=== PATIENT | male | born 1960 | race Caucasian/White ===

== ENCOUNTER 2018-06-24 11:44 | Emergency (ER) | payer SELFPAY ==
[2018-06-24 11:52] VITALS: BP 127/72; PULSE 73; RESP 16; TEMP 36.6; O2SAT 100
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
[2018-06-24 12:26] LABS: Abs Immature Grans 0.12 k/cumm (0.0-0.09); Absolute Basophil Count 0.05 k/cumm (0.0-0.2); Absolute Eosinophil Count 0.59 k/cumm (0.0-0.7); Absolute Lymphocyte Count 2.36 k/cumm (1.2-3.4); Absolute Monocyte Count 0.54 k/cumm (0.11-0.7); Absolute Neutrophil Count 7.05 k/cumm (1.2-6.7); Basophils % 0.5; Eosinophils % 5.5; HCT 34.6 % (40.0-50.0); Immature Grans % 1.1; Mean Corp. HGB Concentration 34.7 g/dL (32.0-36.0); Mean Corpuscular Hemoglobin 32.1 pg (27.0-33.0); Mean Corpuscular Volume 92.5 fL (80-95); Mean Platelet Volume 9.4 fL (8.0-11.0); Neutrophils % 65.9; Platelet Count 548 x1000/uL (130-400); RBC 3.74 m/cumm (4.50-6.00); RBC Distribution Width 17.3 % (11.8-14.1); White Blood Cell Count 10.71 k/cumm (4.4-10.8)
--- NOTE | 2018-06-24 12:26 | DI.RAD_ITS ---
SYMPTOM/DIAGNOSIS: R/O MASS CHEST X-RAY: PA and lateral. No priors. Heart size and pulmonary vasculature are within normal limits. The lungs are free of infiltrates, effusions or pneumothoraces. Degenerative changes are seen in the spine. IMPRESSION: No acute pulmonary process.
[2018-06-24 12:37] LABS: Ammonia 32 umol/L (11-32)
[2018-06-24 12:39] LABS: INR 1.1 (1.0-3.5); PTT Activated 26.7 sec (21.0-31.4); Prothrombin Time 11.2 sec (9.3-11.0)
[2018-06-24 12:48] LABS: ALT 238 U/L (12-78); AST 156 U/L (15-37); Albumin 2.7 g/dL (3.4-5.0); Anion Gap 11.1 mmol/L (3-11); BUN 8 mg/dL (7-18); CO2 27.9 mmol/L (21.0-32.0); Calcium 9.3 mg/dL (8.5-10.1); Chloride 97 mmol/L (98-107); ETHANOL BLOOD 173.3 mg/dL (<3); Glucose 88 mg/dL (70-100); Potassium 3.4 mmol/L (3.5-5.1); Sodium 136 mmol/L (136-145); Total Protein 7.2 g/dL (6.4-8.2)
[2018-06-24 12:51] LABS: Bilirubin, Direct 21.35 mg/dL (0.00-0.20)
[2018-06-24 12:52] LABS: Alkaline Phosphatase 1625 U/L (46-116); Bilirubin, Total 23.5 mg/dL (0.2-1.0)
--- NOTE | 2018-06-24 12:54 | DI.CT_ITS ---
SYMPTOM/DIAGNOSIS: SEVERE JAUNDICE, BILI OF 24, R/O RUQ PATHOLOGY CT ABDOMEN AND PELVIS: CT scan of the abdomen and pelvis was performed following the uneventful administration of intravenous contrast material. No priors for comparison. The lung bases are free of infiltrates. There are several hypodense lesions seen within the liver. The largest is seen in the right lobe and measures 1.7 x 1.7 cm. There is a 3.3 x 3.4 x 3.7 cm heterogeneous mass involving the head of the pancreas suspicious for neoplasm. The adjacent portal and splenic veins are patent as is the celiac access and splenic artery. There is dilatation of the pancreatic duct up to 4 mm. There is dilatation of the intra and extra hepatic bile ducts to the level of the pancreatic mass and measures up to 1.4 cm. There is distension of the gallbladder. No definite stones are seen. There is mild pericholecystic fluid present. The spleen and adrenal glands are unremarkable. The kidneys show normal and symmetric enhancement. There is a cyst seen on the mid pole of the left kidney. No solid renal mass, calculus or obstruction is seen. The urinary bladder is intact. Reproductive organs are unremarkable as visualized. The bowel shows no evidence of obstruction or inflammation. No findings to suggest an acute appendicitis are present. There is atherosclerosis of the abdominal aorta without aneurysmal dilatation. Incidental note is made of a retro aortic left renal vein. No significant abdominal or pelvic adenopathy or pneumoperitoneum is seen. No significant ascites is present. Degenerative changes are seen in the spine. No aggressive osseous lesions are appreciated. IMPRESSION: 1. 3.4 x 3.3 x 3.7 cm. heterogeneous mass in the head of the pancreas suspicious for a neoplasm. 2. Multiple low attenuation lesions seen in the liver most suggestive of hepatic metastases. 3. Extra and intra hepatic biliary ductal dilatation to the level of the pancreatic mass.
[2018-06-24 13:04] LABS: Acetaminophen < 2 ug/mL (10-30); Salicylate < 2.8 mg/dL (2.8-20.0)
[2018-06-24 13:05] LABS: GGT 3362 U/L (15-85)
--- NOTE | 2018-06-24 13:26 | DI.VRAD_ITS ---
EXAM: XR Chest, 2 Views EXAM DATE/TIME: 06/24/2018 12:08 PM CLINICAL HISTORY: 57 years old, male; Pain; Chest pain; Type not specified; Patient HX: R/O mass TECHNIQUE: XR of the chest, 2 views. COMPARISON: No relevant prior studies available. FINDINGS: Lungs: Unremarkable. No consolidation. Pleural space: Unremarkable. No pleural effusion. No pneumothorax. Heart/Mediastinum: Unremarkable. No cardiomegaly. Bones/joints: Unremarkable. IMPRESSION: No acute findings. Dictated and Authenticated by: Nicole Rdz MD. Ordering:MICHAEL Bahena MD
[2018-06-24] MEDS: Omnipaque 350 MG/ML 100 ML BTL IJ (13:37)
--- NOTE | 2018-06-24 13:50 | DI.VRAD_ITS ---
EXAM: CT Abdomen and Pelvis With Contrast EXAM DATE/TIME: 06/24/2018 12:55 PM CLINICAL HISTORY: 57 years old, male; Signs and symptoms; Other: Severe jaundice, bili of 24, rule out ruq pathology TECHNIQUE: Axial computed tomography images of the abdomen and pelvis with intravenous contrast. All CT scans at this facility use at least one of these dose optimization techniques: automated exposure control; mA and/or kV adjustment per patient size (includes targeted exams where dose is matched to clinical indication); or iterative reconstruction. Coronal and sagittal reformatted images were created and reviewed. CONTRAST: 100 ml of Omnipaque 350 administered intravenously. COMPARISON: No relevant prior studies available. FINDINGS: Lower thorax: No acute findings. ABDOMEN: Liver: Multiple low-attenuation lesions in the liver, largest in the right hepatic lobe measures 1.6 x 1.6 cm. Metastases suspected given pancreatic mass. Gallbladder and bile ducts: Dilatation of the common bile duct measuring 1.4 cm, to the level of the pancreatic mass. Intrahepatic ductal dilatation. Dilatation of the gallbladder. Pancreas: Mildly heterogeneous mass within the pancreatic head measures 3.3 x 3.4 x 3.7 cm(AP/TV/SI). Findings highly suspect for a neoplasm, additional workup necessary. Pancreatic duct dilatation measures 4 mm. Spleen: Normal. No splenomegaly. Adrenals: Normal. No mass. Kidneys and ureters: Left cortical renal cyst. Stomach and bowel: Normal. No obstruction. No mucosal thickening. Appendix: No evidence of appendicitis. PELVIS: Bladder: Unremarkable as visualized. Reproductive: Unremarkable as visualized. ABDOMEN and PELVIS: Intraperitoneal space: Normal. No free air. No significant fluid collection. Bones/joints: No acute fracture. No dislocation. Soft tissues: Unremarkable. Vasculature: Normal. No abdominal aortic aneurysm. Lymph nodes: Normal. No enlarged lymph nodes. IMPRESSION: 1. Mildly heterogeneous mass within the pancreatic head measures 3.3 x 3.4 x 3.7 cm(AP/TV/SI). Findings highly suspect for a neoplasm, additional workup necessary. 2. Dilatation of the common bile duct measuring 1.4 cm, to the level of the pancreatic mass. Intrahepatic and pancreatic ductal dilatation. 3. Multiple low-attenuation lesions in the liver, largest in the right hepatic lobe measures 1.6 x 1.6 cm. Metastases likely. Findings were discussed with ESPERANZA Collazo on 06/24/2018 1:49 PM EST Dictated and Authenticated by: Nicole Rdz MD. Ordering:MICHAEL Bahena MD
[2018-06-24 14:30] VITALS: BP 113/65; PULSE 69; RESP 16; TEMP 36.6; O2SAT 98
[2018-06-24 14:43] VITALS: RESP 16
[2018-06-26 12:07] LABS: Hepatitis A Antibody IgM Negative (NEGAT); Hepatitis B Core Antibody Negative (NEGAT); Hepatitis B surface Ag Negative (NEGAT); Hepatitis C Ab w Rflx HCV PCR Negative (NEGAT)
== END 2018-06-24 14:45 | disposition home or self-care (01) ==
PROVIDERS: Emergency Provider Student in an Organized Health Care Education/Training Program
DX: K86.9 Disease of pancreas, unspecified (principal); K76.89 Other specified diseases of liver; R17 Unspecified jaundice
CPT/HCPCS: 36415; 80053; 86704; 86709; 86803; 87340; 99285; 71046; 74177; 80320; 80329; 82140; 82248; 82977; 85025; 85610; 85730; 99284; J3490

== ENCOUNTER 2018-07-27 08:01 | Outpatient (CLI) | payer SELFPAY ==
[2018-07-27 08:17] LABS: Abs Immature Grans 0.02 k/cumm (0.0-0.09); Absolute Basophil Count 0.03 k/cumm (0.0-0.2); Absolute Eosinophil Count 0.88 k/cumm (0.0-0.7); Absolute Lymphocyte Count 2.43 k/cumm (1.2-3.4); Absolute Monocyte Count 0.59 k/cumm (0.11-0.7); Basophils % 0.3; Eosinophils % 7.9; HCT 38.9 % (40.0-50.0); HGB 12.8 g/dL (13.5-17.5); Immature Grans % 0.2; Lymphocytes % 21.8; Mean Corp. HGB Concentration 32.9 g/dL (32.0-36.0); Mean Corpuscular Hemoglobin 32.1 pg (27.0-33.0); Mean Corpuscular Volume 97.5 fL (80-95); Mean Platelet Volume 8.4 fL (8.0-11.0); Monocytes % 5.3; Neutrophils % 64.5; Platelet Count 347 x1000/uL (130-400); RBC 3.99 m/cumm (4.50-6.00); RBC Distribution Width 14.2 % (11.8-14.1); White Blood Cell Count 11.16 k/cumm (4.4-10.8)
[2018-07-27 08:29] LABS: ALT 30 U/L (12-78); AST 17 U/L (15-37); Albumin 3.1 g/dL (3.4-5.0); Alkaline Phosphatase 300 U/L (46-116); Anion Gap 8.9 mmol/L (3-11); BUN 11 mg/dL (7-18); Bilirubin, Total 2.8 mg/dL (0.2-1.0); CO2 29.1 mmol/L (21.0-32.0); CREATININE 0.75 mg/dL (0.70-1.30); Calcium 9.3 mg/dL (8.5-10.1); Chloride 100 mmol/L (98-107); Glucose 120 mg/dL (70-100); Potassium 3.8 mmol/L (3.5-5.1); Sodium 138 mmol/L (136-145); Total Protein 7.7 g/dL (6.4-8.2)
[2018-07-28 11:40] LABS: CA 19-9 40 U/mL (<35)
== END 2018-07-27 08:21 ==
PROVIDERS: Visit Provider Nurse Practitioner Adult Health
DX: C25.0 Malignant neoplasm of head of pancreas (principal)
CPT/HCPCS: 36415; 80053; 85025; 86301

== ENCOUNTER 2018-08-04 07:48 | Outpatient (CLI) | payer SELFPAY ==
[2018-08-04 08:15] LABS: Abs Immature Grans 0.04 k/cumm (0.0-0.09); Absolute Basophil Count 0.04 k/cumm (0.0-0.2); Absolute Eosinophil Count 0.63 k/cumm (0.0-0.7); Absolute Lymphocyte Count 2.54 k/cumm (1.2-3.4); Absolute Monocyte Count 0.87 k/cumm (0.11-0.7); Absolute Neutrophil Count 6.51 k/cumm (1.2-6.7); Basophils % 0.4; Eosinophils % 5.9; HCT 39.1 % (40.0-50.0); HGB 13.2 g/dL (13.5-17.5); Immature Grans % 0.4; Lymphocytes % 23.9; Mean Corp. HGB Concentration 33.8 g/dL (32.0-36.0); Mean Corpuscular Hemoglobin 32.5 pg (27.0-33.0); Mean Corpuscular Volume 96.3 fL (80-95); Mean Platelet Volume 8.6 fL (8.0-11.0); Monocytes % 8.2; Neutrophils % 61.2; Platelet Count 209 x1000/uL (130-400); RBC 4.06 m/cumm (4.50-6.00); RBC Distribution Width 13.7 % (11.8-14.1); White Blood Cell Count 10.63 k/cumm (4.4-10.8)
[2018-08-04 08:29] LABS: ALT 21 U/L (12-78); AST 14 U/L (15-37); Albumin 3.1 g/dL (3.4-5.0); Alkaline Phosphatase 227 U/L (46-116); Anion Gap 7.1 mmol/L (3-11); BUN 17 mg/dL (7-18); Bilirubin, Total 1.9 mg/dL (0.2-1.0); CO2 29.9 mmol/L (21.0-32.0); CREATININE 0.79 mg/dL (0.70-1.30); Calcium 9.2 mg/dL (8.5-10.1); Chloride 101 mmol/L (98-107); Glucose 111 mg/dL (70-100); Potassium 4.2 mmol/L (3.5-5.1); Sodium 138 mmol/L (136-145); Total Protein 7.6 g/dL (6.4-8.2)
== END 2018-08-04 08:08 ==
PROVIDERS: Visit Provider Nurse Practitioner Adult Health
DX: C25.0 Malignant neoplasm of head of pancreas (principal)
CPT/HCPCS: 36415; 80053; 85025

== ENCOUNTER 2018-08-11 00:51 | Outpatient (CLI) | payer SELFPAY ==
[2018-08-11 08:03] LABS: Abs Immature Grans 0.02 k/cumm (0.0-0.09); Absolute Basophil Count 0.03 k/cumm (0.0-0.2); Absolute Eosinophil Count 0.45 k/cumm (0.0-0.7); Absolute Lymphocyte Count 2.37 k/cumm (1.2-3.4); Absolute Monocyte Count 0.54 k/cumm (0.11-0.7); Absolute Neutrophil Count 4.15 k/cumm (1.2-6.7); Basophils % 0.4; HCT 39.2 % (40.0-50.0); HGB 13.2 g/dL (13.5-17.5); Immature Grans % 0.3; Lymphocytes % 31.3; Mean Corp. HGB Concentration 33.7 g/dL (32.0-36.0); Mean Corpuscular Hemoglobin 32.5 pg (27.0-33.0); Mean Corpuscular Volume 96.6 fL (80-95); Mean Platelet Volume 7.8 fL (8.0-11.0); Monocytes % 7.1; Neutrophils % 54.9; Platelet Count 241 x1000/uL (130-400); RBC 4.06 m/cumm (4.50-6.00); RBC Distribution Width 13.9 % (11.8-14.1); White Blood Cell Count 7.56 k/cumm (4.4-10.8)
[2018-08-11 08:19] LABS: ALT 26 U/L (12-78); AST 16 U/L (15-37); Alkaline Phosphatase 159 U/L (46-116); BUN 13 mg/dL (7-18); Bilirubin, Total 1.3 mg/dL (0.2-1.0); CREATININE 0.85 mg/dL (0.70-1.30); Calcium 9.3 mg/dL (8.5-10.1); Chloride 101 mmol/L (98-107); Glucose 122 mg/dL (70-100); Sodium 139 mmol/L (136-145); Total Protein 7.5 g/dL (6.4-8.2)
== END 2018-08-11 01:11 ==
PROVIDERS: Visit Provider Nurse Practitioner Adult Health
DX: C25.0 Malignant neoplasm of head of pancreas (principal)
CPT/HCPCS: 36415; 80053; 85025

== ENCOUNTER 2018-08-25 02:27 | Outpatient (CLI) | payer SELFPAY ==
[2018-08-25 07:16] LABS: HCT 41.8 % (40.0-50.0); HGB 13.8 g/dL (13.5-17.5); Mean Corpuscular Hemoglobin 32.5 pg (27.0-33.0); Mean Corpuscular Volume 98.4 fL (80-95); Mean Platelet Volume 8.5 fL (8.0-11.0); Platelet Count 580 x1000/uL (130-400); RBC 4.25 m/cumm (4.50-6.00); RBC Distribution Width 15.7 % (11.8-14.1); White Blood Cell Count 12.18 k/cumm (4.4-10.8)
[2018-08-25 07:34] LABS: Absolute Eosinophil Count 0.37 k/cumm (0.0-0.7); Absolute Lymphocyte Count 3.41 k/cumm (1.2-3.4); Absolute Monocyte Count 0.73 k/cumm (0.11-0.7); Absolute Neutrophil Count 7.67 k/cumm (1.2-6.7); Anisocytosis 1+; Atypical Lymphocytes % 5; Diff Comment Manual Differential
[2018-08-25 07:39] LABS: ALT 23 U/L (12-78); AST 16 U/L (15-37); Albumin 3.3 g/dL (3.4-5.0); Alkaline Phosphatase 155 U/L (46-116); Anion Gap 8.7 mmol/L (3-11); BUN 17 mg/dL (7-18); Bilirubin, Total 0.7 mg/dL (0.2-1.0); CO2 29.3 mmol/L (21.0-32.0); CREATININE 1.02 mg/dL (0.70-1.30); Calcium 9.4 mg/dL (8.5-10.1); Chloride 101 mmol/L (98-107); Glucose 103 mg/dL (70-100); Potassium 4.4 mmol/L (3.5-5.1); Sodium 139 mmol/L (136-145); Total Protein 7.7 g/dL (6.4-8.2)
[2018-08-28 14:06] LABS: CA 19-9 37 U/mL (<35)
== END 2018-08-25 02:47 ==
PROVIDERS: Visit Provider Nurse Practitioner Adult Health
DX: C25.0 Malignant neoplasm of head of pancreas (principal)
CPT/HCPCS: 36415; 80053; 85025; 86301

== ENCOUNTER 2018-09-01 01:06 | Outpatient (CLI) | payer SELFPAY ==
[2018-09-01 07:26] LABS: Abs Immature Grans 0.03 k/cumm (0.0-0.09); Absolute Basophil Count 0.05 k/cumm (0.0-0.2); Absolute Lymphocyte Count 2.61 k/cumm (1.2-3.4); Absolute Neutrophil Count 3.66 k/cumm (1.2-6.7); Basophils % 0.7; Eosinophils % 4.2; HCT 38.6 % (40.0-50.0); HGB 13.2 g/dL (13.5-17.5); Immature Grans % 0.4; Lymphocytes % 36.5; Mean Corp. HGB Concentration 34.2 g/dL (32.0-36.0); Mean Corpuscular Hemoglobin 32.7 pg (27.0-33.0); Mean Corpuscular Volume 95.5 fL (80-95); Mean Platelet Volume 8.5 fL (8.0-11.0); Neutrophils % 51.2; Platelet Count 314 x1000/uL (130-400); RBC 4.04 m/cumm (4.50-6.00); RBC Distribution Width 14.9 % (11.8-14.1); White Blood Cell Count 7.15 k/cumm (4.4-10.8)
[2018-09-01 07:40] LABS: ALT 28 U/L (12-78); AST 20 U/L (15-37); Albumin 3.1 g/dL (3.4-5.0); Alkaline Phosphatase 115 U/L (46-116); BUN 8 mg/dL (7-18); Bilirubin, Total 0.6 mg/dL (0.2-1.0); CREATININE 0.72 mg/dL (0.70-1.30); Calcium 8.6 mg/dL (8.5-10.1); Chloride 103 mmol/L (98-107); Glucose 110 mg/dL (70-100); Potassium 3.6 mmol/L (3.5-5.1); Sodium 139 mmol/L (136-145); Total Protein 6.9 g/dL (6.4-8.2)
== END 2018-09-01 01:26 ==
PROVIDERS: Visit Provider Nurse Practitioner Adult Health
DX: C25.0 Malignant neoplasm of head of pancreas (principal)
CPT/HCPCS: 36415; 80053; 85025

== ENCOUNTER 2018-09-08 01:32 | Outpatient (CLI) | payer SELFPAY ==
[2018-09-08 07:33] LABS: Abs Immature Grans 0.02 k/cumm (0.0-0.09); Absolute Basophil Count 0.05 k/cumm (0.0-0.2); Absolute Lymphocyte Count 1.83 k/cumm (1.2-3.4); Absolute Monocyte Count 0.15 k/cumm (0.11-0.7); Absolute Neutrophil Count 2.05 k/cumm (1.2-6.7); Basophils % 1.2; Eosinophils % 2.4; HCT 38.1 % (40.0-50.0); Immature Grans % 0.5; Lymphocytes % 43.6; Mean Corp. HGB Concentration 34.1 g/dL (32.0-36.0); Mean Corpuscular Hemoglobin 32.4 pg (27.0-33.0); Monocytes % 3.6; Neutrophils % 48.7; RBC 4.01 m/cumm (4.50-6.00)
[2018-09-08 07:44] LABS: ALT 43 U/L (12-78); AST 28 U/L (15-37); Albumin 3.3 g/dL (3.4-5.0); Alkaline Phosphatase 129 U/L (46-116); Anion Gap 6.3 mmol/L (3-11); BUN 13 mg/dL (7-18); Bilirubin, Total 0.6 mg/dL (0.2-1.0); CO2 30.7 mmol/L (21.0-32.0); CREATININE 0.72 mg/dL (0.70-1.30); Chloride 101 mmol/L (98-107); Glucose 109 mg/dL (70-100); Potassium 3.6 mmol/L (3.5-5.1); Sodium 138 mmol/L (136-145)
[2018-09-08 07:53] LABS: Platelet Count 107 x1000/uL (130-400)
== END 2018-09-08 01:52 ==
PROVIDERS: Visit Provider Nurse Practitioner Adult Health
DX: C25.0 Malignant neoplasm of head of pancreas (principal)
CPT/HCPCS: 36415; 80053; 85025; 86301

== ENCOUNTER 2018-09-18 01:03 | Outpatient (CLI) | payer SELFPAY ==
[2018-09-18] MEDS: Omnipaque 350 MG/ML 100 ML BTL IV (10:38)
--- NOTE | 2018-09-18 11:10 | DI.CT_ITS ---
SYMPTOMS/DIAGNOSIS: STAGE IV PANCREATIC CA ON CHEMO, RESTAGING, C25.9, C78.7 CT SCAN OF THE CHEST, ABDOMEN AND PELVIS: CT scan of the chest, abdomen and pelvis was performed following the uneventful administration of intravenous and oral contrast material. Comparison is 06/24/18. CT SCAN OF THE ABDOMEN AND PELVIS: The liver is normal in size. There are again seen five hypodense masses within the liver; the largest is seen in the posterior segment of the right lobe and measures 2.2 x 1.9 cm, which is unchanged compared to the prior examination. No new hepatic lesions are identified. The portal, superior mesenteric and splenic veins are patent. The gallbladder is normal in size. No biliary ductal dilatation is seen. There has been interval placement of a biliary tube with resultant air in the gallbladder and intrahepatic and extrahepatic bile ducts. There is persistent dilatation of the pancreatic duct. The pancreatic mass is again seen. It measures approximately 3.4 cm x 3.5 cm, which is grossly unchanged compared to the prior examination. The spleen is unremarkable. There is no evidence of an adrenal mass. The kidneys show normal and symmetric enhancement. There is a left renal cyst. Again noted, there are a few tiny hypodensities seen in the kidneys. They are too small for further characterization, but likely reflect small cysts. The urinary bladder is intact. Reproductive organs are unremarkable as visualized. There is atherosclerosis of the abdominal aorta but no aneurysmal dilatation. Incidental note is made of a retroaortic left renal vein. No significant abdominal or pelvic ascites or adenopathy is present. No pneumoperitoneum is seen. The bowel shows no evidence of obstruction or inflammation. There is a normal appendix visualized. There are degenerative changes seen in the spine. No aggressive osseous lesions are identified. IMPRESSION: 1. Stable pancreatic head mass. 2. Stable hepatic lesions suspicious for metastases. 3. Status post biliary tube placement with resultant pneumobilia. CT SCAN OF THE CHEST: There are no priors for comparison. The thoracic aorta shows mild atherosclerosis but is normal in caliber. Heart size is mildly enlarged. No significant pericardial effusion is seen. Coronary artery calcifications are present. No pleural effusion or pneumothorax is identified. No significant thoracic adenopathy is present. Mild dependent atelectatic changes are seen in the lung bases. No pulmonary nodules are identified. The tracheobronchial tree is unremarkable. No focal consolidating infiltrates are present. There is an old compression deformity seen in the mid thoracic spine. This was present on the x-ray of the chest from 06/24/18. No aggressive osseous lesions are seen. There are degenerative changes seen in the spine. IMPRESSION: No evidence of thoracic metastatic disease.
== END 2018-09-18 01:23 ==
PROVIDERS: Visit Provider Internal Medicine Hematology & Oncology
DX: C25.9 Malignant neoplasm of pancreas, unspecified (principal); C78.7 Secondary malignant neoplasm of liver and intrahepatic bile duct; Z92.21 Personal history of antineoplastic chemotherapy; K83.8 Other specified diseases of biliary tract; Z96.89 Presence of other specified functional implants
CPT/HCPCS: 74177; 71260; J3490

== ENCOUNTER 2018-09-22 02:16 | Outpatient (CLI) | payer SELFPAY ==
[2018-09-22 07:38] LABS: Abs Immature Grans 0.05 k/cumm (0.0-0.09); Absolute Basophil Count 0.03 k/cumm (0.0-0.2); Absolute Eosinophil Count 0.58 k/cumm (0.0-0.7); Absolute Lymphocyte Count 2.04 k/cumm (1.2-3.4); Absolute Monocyte Count 0.85 k/cumm (0.11-0.7); Absolute Neutrophil Count 3.97 k/cumm (1.2-6.7); Basophils % 0.4; Eosinophils % 7.7; HCT 37.2 % (40.0-50.0); HGB 12.6 g/dL (13.5-17.5); Immature Grans % 0.7; Lymphocytes % 27.1; Mean Corp. HGB Concentration 33.9 g/dL (32.0-36.0); Mean Corpuscular Hemoglobin 32.6 pg (27.0-33.0); Mean Corpuscular Volume 96.4 fL (80-95); Mean Platelet Volume 9.1 fL (8.0-11.0); Monocytes % 11.3; Neutrophils % 52.8; Platelet Count 560 x1000/uL (130-400); RBC 3.86 m/cumm (4.50-6.00); RBC Distribution Width 16.7 % (11.8-14.1); White Blood Cell Count 7.52 k/cumm (4.4-10.8)
[2018-09-22 07:45] LABS: ALT 24 U/L (12-78); AST 17 U/L (15-37); Albumin 3.3 g/dL (3.4-5.0); Alkaline Phosphatase 105 U/L (46-116); Anion Gap 7.5 mmol/L (3-11); BUN 14 mg/dL (7-18); Bilirubin, Total 0.3 mg/dL (0.2-1.0); CO2 29.5 mmol/L (21.0-32.0); CREATININE 0.95 mg/dL (0.70-1.30); Calcium 8.8 mg/dL (8.5-10.1); Chloride 105 mmol/L (98-107); Glucose 100 mg/dL (70-100); Potassium 4.2 mmol/L (3.5-5.1); Sodium 142 mmol/L (136-145); Total Protein 6.9 g/dL (6.4-8.2)
== END 2018-09-22 02:36 ==
PROVIDERS: Visit Provider Internal Medicine Hematology & Oncology
DX: C25.0 Malignant neoplasm of head of pancreas (principal)
CPT/HCPCS: 36415; 80053; 85025

== ENCOUNTER 2018-09-29 01:35 | Outpatient (CLI) | payer SELFPAY ==
[2018-09-29 08:15] LABS: HCT 38.1 % (40.0-50.0); HGB 12.9 g/dL (13.5-17.5); Mean Corp. HGB Concentration 33.9 g/dL (32.0-36.0); Mean Corpuscular Hemoglobin 32.3 pg (27.0-33.0); Mean Corpuscular Volume 95.5 fL (80-95); Platelet Count 411 x1000/uL (130-400); RBC 3.99 m/cumm (4.50-6.00); RBC Distribution Width 16.9 % (11.8-14.1); White Blood Cell Count 6.32 k/cumm (4.4-10.8)
[2018-09-29 08:26] LABS: ALT 40 U/L (12-78); AST 26 U/L (15-37); Albumin 3.4 g/dL (3.4-5.0); Alkaline Phosphatase 99 U/L (46-116); Anion Gap 5.9 mmol/L (3-11); BUN 13 mg/dL (7-18); Bilirubin, Total 0.4 mg/dL (0.2-1.0); CO2 28.1 mmol/L (21.0-32.0); CREATININE 0.84 mg/dL (0.70-1.30); Calcium 9.2 mg/dL (8.5-10.1); Chloride 103 mmol/L (98-107); Glucose 107 mg/dL (70-100); Potassium 4.5 mmol/L (3.5-5.1); Sodium 137 mmol/L (136-145); Total Protein 6.8 g/dL (6.4-8.2)
[2018-09-29 08:36] LABS: Absolute Basophil Count 0.06 k/cumm (0.0-0.2); Absolute Eosinophil Count 0.06 k/cumm (0.0-0.7); Absolute Lymphocyte Count 2.72 k/cumm (1.2-3.4); Absolute Monocyte Count 0.51 k/cumm (0.11-0.7); Absolute Neutrophil Count 2.97 k/cumm (1.2-6.7); Atypical Lymphocytes % 3; Diff Comment Manual Differential; RBC Morphology Normal
[2018-10-02 10:53] LABS: CA 19-9 34 U/mL (<35)
== END 2018-09-29 01:55 ==
PROVIDERS: Visit Provider Nurse Practitioner Adult Health
DX: C25.0 Malignant neoplasm of head of pancreas (principal)
CPT/HCPCS: 36415; 80053; 85025; 86301

== ENCOUNTER 2018-10-06 01:51 | Outpatient (CLI) | payer SELFPAY ==
[2018-10-06 07:37] LABS: Abs Immature Grans 0.04 k/cumm (0.0-0.09); Absolute Basophil Count 0.04 k/cumm (0.0-0.2); Absolute Eosinophil Count 0.06 k/cumm (0.0-0.7); Absolute Lymphocyte Count 1.55 k/cumm (1.2-3.4); Basophils % 1.2; Eosinophils % 1.8; HCT 33.3 % (40.0-50.0); HGB 11.1 g/dL (13.5-17.5); Immature Grans % 1.2; Lymphocytes % 45.5; Mean Corp. HGB Concentration 33.3 g/dL (32.0-36.0); Mean Corpuscular Hemoglobin 31.4 pg (27.0-33.0); Mean Corpuscular Volume 94.3 fL (80-95); Monocytes % 5.9; Neutrophils % 44.4; Platelet Count 123 x1000/uL (130-400); RBC 3.53 m/cumm (4.50-6.00); RBC Distribution Width 16.4 % (11.8-14.1); White Blood Cell Count 3.41 k/cumm (4.4-10.8)
[2018-10-06 07:38] LABS: Absolute Neutrophil Count 1.51 k/cumm (1.2-6.7)
[2018-10-06 07:51] LABS: ALT 31 U/L (12-78); AST 16 U/L (15-37); Albumin 3.2 g/dL (3.4-5.0); Alkaline Phosphatase 84 U/L (46-116); Anion Gap 6.8 mmol/L (3-11); BUN 21 mg/dL (7-18); Bilirubin, Total 0.4 mg/dL (0.2-1.0); CO2 28.2 mmol/L (21.0-32.0); CREATININE 0.85 mg/dL (0.70-1.30); Calcium 9.1 mg/dL (8.5-10.1); Chloride 102 mmol/L (98-107); Glucose 110 mg/dL (70-100); Potassium 3.9 mmol/L (3.5-5.1); Sodium 137 mmol/L (136-145); Total Protein 6.5 g/dL (6.4-8.2)
== END 2018-10-06 02:11 ==
PROVIDERS: Visit Provider Nurse Practitioner Adult Health
DX: C25.0 Malignant neoplasm of head of pancreas (principal)
CPT/HCPCS: 36415; 80053; 85025

== ENCOUNTER 2018-10-20 01:26 | Outpatient (CLI) | payer SELFPAY ==
[2018-10-20 11:13] LABS: Abs Immature Grans 0.07 k/cumm (0.0-0.09); Absolute Basophil Count 0.02 k/cumm (0.0-0.2); Absolute Eosinophil Count 0.28 k/cumm (0.0-0.7); Absolute Lymphocyte Count 2.22 k/cumm (1.2-3.4); Absolute Monocyte Count 0.88 k/cumm (0.11-0.7); Absolute Neutrophil Count 4.84 k/cumm (1.2-6.7); Basophils % 0.2; Eosinophils % 3.4; HGB 11.6 g/dL (13.5-17.5); Immature Grans % 0.8; Lymphocytes % 26.7; Mean Corp. HGB Concentration 33.1 g/dL (32.0-36.0); Mean Corpuscular Hemoglobin 32.2 pg (27.0-33.0); Mean Corpuscular Volume 97.2 fL (80-95); Mean Platelet Volume 9.3 fL (8.0-11.0); Monocytes % 10.6; Neutrophils % 58.3; Platelet Count 573 x1000/uL (130-400); RBC Distribution Width 19.1 % (11.8-14.1); White Blood Cell Count 8.31 k/cumm (4.4-10.8)
[2018-10-20 11:14] LABS: ALT 26 U/L (12-78); AST 17 U/L (15-37); Albumin 3.5 g/dL (3.4-5.0); Alkaline Phosphatase 93 U/L (46-116); Anion Gap 6.9 mmol/L (3-11); BUN 16 mg/dL (7-18); Bilirubin, Total 0.5 mg/dL (0.2-1.0); CO2 29.1 mmol/L (21.0-32.0); CREATININE 0.76 mg/dL (0.70-1.30); Calcium 9.4 mg/dL (8.5-10.1); Chloride 102 mmol/L (98-107); Glucose 95 mg/dL (70-100); Sodium 138 mmol/L (136-145); Total Protein 6.9 g/dL (6.4-8.2)
[2018-10-20 11:33] LABS: Anisocytosis 2+; Diff Comment Diff Reviewed; Hypochromasia 1+; Macrocytosis 1+; Microcytosis 1+; Polychromasia Present
[2018-10-20 11:34] LABS: Poikilocytes 1+
[2018-10-23 12:27] LABS: CA 19-9 22 U/mL (<35)
== END 2018-10-20 01:46 ==
PROVIDERS: Visit Provider Nurse Practitioner Adult Health
DX: C25.0 Malignant neoplasm of head of pancreas (principal)
CPT/HCPCS: 36415; 80053; 85025; 86301

== ENCOUNTER 2018-11-03 07:29 | Outpatient (CLI) | payer SELFPAY ==
[2018-11-03 07:54] LABS: Absolute Basophil Count 0.04 k/cumm (0.0-0.2); Absolute Eosinophil Count 0.61 k/cumm (0.0-0.7); Absolute Lymphocyte Count 2.47 k/cumm (1.2-3.4); Absolute Monocyte Count 1.17 k/cumm (0.11-0.7); Absolute Neutrophil Count 5.79 k/cumm (1.2-6.7); Basophils % 0.4; HCT 38.7 % (40.0-50.0); Lymphocytes % 24.3; Mean Corp. HGB Concentration 33.6 g/dL (32.0-36.0); Mean Corpuscular Hemoglobin 33.1 pg (27.0-33.0); Mean Corpuscular Volume 98.5 fL (80-95); Mean Platelet Volume 8.8 fL (8.0-11.0); Monocytes % 11.5; Neutrophils % 56.8; Platelet Count 283 x1000/uL (130-400); RBC 3.93 m/cumm (4.50-6.00); RBC Distribution Width 19.3 % (11.8-14.1); White Blood Cell Count 10.18 k/cumm (4.4-10.8)
[2018-11-03 08:18] LABS: ALT 23 U/L (12-78); AST 12 U/L (15-37); Albumin 3.5 g/dL (3.4-5.0); Alkaline Phosphatase 108 U/L (46-116); Anion Gap 8.1 mmol/L (3-11); BUN 15 mg/dL (7-18); Bilirubin, Total 0.4 mg/dL (0.2-1.0); CO2 27.9 mmol/L (21.0-32.0); CREATININE 0.86 mg/dL (0.70-1.30); Calcium 8.9 mg/dL (8.5-10.1); Chloride 102 mmol/L (98-107); Glucose 112 mg/dL (70-100); Potassium 4.3 mmol/L (3.5-5.1); Sodium 138 mmol/L (136-145); Total Protein 7.1 g/dL (6.4-8.2)
[2018-11-06 10:33] LABS: CA 19-9 20 U/mL (<35)
== END 2018-11-03 07:49 ==
PROVIDERS: Visit Provider Nurse Practitioner Adult Health
DX: C25.0 Malignant neoplasm of head of pancreas (principal)
CPT/HCPCS: 36415; 80053; 85025; 86301

== ENCOUNTER 2018-11-10 02:04 | Outpatient (CLI) | payer SELFPAY ==
[2018-11-10 08:10] LABS: HCT 33.7 % (40.0-50.0); Mean Corp. HGB Concentration 32.6 g/dL (32.0-36.0); Mean Corpuscular Hemoglobin 32.6 pg (27.0-33.0); Mean Platelet Volume 8.5 fL (8.0-11.0); Platelet Count 206 x1000/uL (130-400); RBC 3.37 m/cumm (4.50-6.00); RBC Distribution Width 17.2 % (11.8-14.1)
[2018-11-10 08:22] LABS: ALT 38 U/L (12-78); AST 26 U/L (15-37); Albumin 3.3 g/dL (3.4-5.0); Alkaline Phosphatase 98 U/L (46-116); Anion Gap 6.6 mmol/L (3-11); BUN 14 mg/dL (7-18); Bilirubin, Total 0.4 mg/dL (0.2-1.0); CO2 28.4 mmol/L (21.0-32.0); CREATININE 0.75 mg/dL (0.70-1.30); Chloride 101 mmol/L (98-107); Glucose 105 mg/dL (70-100); Sodium 136 mmol/L (136-145); Total Protein 6.7 g/dL (6.4-8.2)
[2018-11-10 08:40] LABS: Absolute Eosinophil Count 0.15 k/cumm (0.0-0.7); Absolute Lymphocyte Count 1.84 k/cumm (1.2-3.4); Absolute Monocyte Count 0.56 k/cumm (0.11-0.7); Diff Comment Manual Differential; RBC Morphology Normal
[2018-11-13 10:40] LABS: CA 19-9 23 U/mL (<35)
== END 2018-11-10 02:24 ==
PROVIDERS: Visit Provider Nurse Practitioner Adult Health
DX: C25.0 Malignant neoplasm of head of pancreas (principal)
CPT/HCPCS: 36415; 80053; 85025; 86301

== ENCOUNTER 2018-11-24 02:17 | Outpatient (CLI) | payer SELFPAY ==
[2018-11-24 11:43] LABS: Abs Immature Grans 0.06 k/cumm (0.0-0.09); Absolute Basophil Count 0.02 k/cumm (0.0-0.2); Absolute Eosinophil Count 0.14 k/cumm (0.0-0.7); Absolute Lymphocyte Count 1.84 k/cumm (1.2-3.4); Absolute Monocyte Count 0.86 k/cumm (0.11-0.7); Absolute Neutrophil Count 4.88 k/cumm (1.2-6.7); Basophils % 0.3; Eosinophils % 1.8; HCT 35.3 % (40.0-50.0); HGB 11.6 g/dL (13.5-17.5); Immature Grans % 0.8; Lymphocytes % 23.6; Mean Corp. HGB Concentration 32.9 g/dL (32.0-36.0); Mean Corpuscular Hemoglobin 33.7 pg (27.0-33.0); Mean Corpuscular Volume 102.6 fL (80-95); Mean Platelet Volume 8.5 fL (8.0-11.0); Neutrophils % 62.5; Platelet Count 445 x1000/uL (130-400); RBC 3.44 m/cumm (4.50-6.00)
[2018-11-24 11:56] LABS: ALT 28 U/L (12-78); AST 19 U/L (15-37); Albumin 3.5 g/dL (3.4-5.0); Alkaline Phosphatase 92 U/L (46-116); Anion Gap 8.4 mmol/L (3-11); BUN 16 mg/dL (7-18); Bilirubin, Total 0.4 mg/dL (0.2-1.0); CO2 27.6 mmol/L (21.0-32.0); CREATININE 0.82 mg/dL (0.70-1.30); Calcium 9.1 mg/dL (8.5-10.1); Chloride 102 mmol/L (98-107); Glucose 78 mg/dL (70-100); Potassium 3.6 mmol/L (3.5-5.1); Sodium 138 mmol/L (136-145); Total Protein 7.1 g/dL (6.4-8.2)
--- NOTE | 2018-11-24 13:15 | DI.US_ITS ---
SYMPTOMS/DIAGNOSIS: PANCREATIC CA, LEFT LEG SWELLING, PAIN, ? DVT LEFT LOWER EXTREMITY ULTRASOUND: Edema is seen in the lower leg. Femoral and popliteal veins and visualized calf veins are freely compressible. No thrombus is visible. The Doppler venous waveform augments normally. No superficial venous thrombosis is identified. A reactive lymph node is noted in the left groin region. IMPRESSION: Lower leg edema. No evidence of DVT.
[2018-11-27 11:42] LABS: CA 19-9 17 U/mL (<35)
== END 2018-11-24 02:37 ==
PROVIDERS: Visit Provider Nurse Practitioner Adult Health
DX: C25.0 Malignant neoplasm of head of pancreas (principal); R22.42 Localized swelling, mass and lump, left lower limb; R60.0 Localized edema
CPT/HCPCS: 36415; 80053; 85025; 86301; 93971

== ENCOUNTER 2018-12-05 12:34 | Outpatient (CLI) | payer SELFPAY ==
[2018-12-05 13:00] LABS: Abs Immature Grans 0.05 k/cumm (0.0-0.09); Absolute Basophil Count 0.01 k/cumm (0.0-0.2); Absolute Monocyte Count 0.98 k/cumm (0.11-0.7); Absolute Neutrophil Count 3.28 k/cumm (1.2-6.7); Basophils % 0.2; Eosinophils % 1.6; HCT 36.9 % (40.0-50.0); HGB 12.6 g/dL (13.5-17.5); Immature Grans % 0.8; Lymphocytes % 31.2; Mean Corp. HGB Concentration 34.1 g/dL (32.0-36.0); Mean Corpuscular Hemoglobin 34.9 pg (27.0-33.0); Mean Corpuscular Volume 102.2 fL (80-95); Mean Platelet Volume 8.6 fL (8.0-11.0); Monocytes % 15.3; Neutrophils % 50.9; Platelet Count 265 x1000/uL (130-400); RBC 3.61 m/cumm (4.50-6.00); RBC Distribution Width 16.7 % (11.8-14.1); White Blood Cell Count 6.42 k/cumm (4.4-10.8)
[2018-12-05 13:18] LABS: ALT 37 U/L (12-78); AST 37 U/L (15-37); Albumin 3.5 g/dL (3.4-5.0); Alkaline Phosphatase 91 U/L (46-116); Anion Gap 9.8 mmol/L (3-11); BUN 10 mg/dL (7-18); Bilirubin, Total 0.2 mg/dL (0.2-1.0); CO2 26.2 mmol/L (21.0-32.0); CREATININE 0.71 mg/dL (0.70-1.30); Calcium 9.6 mg/dL (8.5-10.1); Chloride 103 mmol/L (98-107); Glucose 91 mg/dL (70-100); Potassium 4.1 mmol/L (3.5-5.1); Sodium 139 mmol/L (136-145); Total Protein 7.2 g/dL (6.4-8.2)
[2018-12-06 10:31] LABS: CA 19-9 20 U/mL (<35)
== END 2018-12-05 12:54 ==
PROVIDERS: Visit Provider Nurse Practitioner Adult Health
DX: C25.0 Malignant neoplasm of head of pancreas (principal)
CPT/HCPCS: 36415; 80053; 85025; 86301

== ENCOUNTER 2018-12-11 11:45 | Outpatient (CLI) | payer SELFPAY ==
[2018-12-11 12:33] LABS: Abs Immature Grans 0.04 k/cumm (0.0-0.09); Absolute Basophil Count 0.04 k/cumm (0.0-0.2); Absolute Eosinophil Count 0.06 k/cumm (0.0-0.7); Absolute Monocyte Count 0.28 k/cumm (0.11-0.7); Absolute Neutrophil Count 3.35 k/cumm (1.2-6.7); Basophils % 0.8; Eosinophils % 1.1; HCT 35.7 % (40.0-50.0); HGB 11.8 g/dL (13.5-17.5); Immature Grans % 0.8; Lymphocytes % 28.5; Mean Corp. HGB Concentration 33.1 g/dL (32.0-36.0); Mean Corpuscular Hemoglobin 33.9 pg (27.0-33.0); Mean Corpuscular Volume 102.6 fL (80-95); Mean Platelet Volume 8.9 fL (8.0-11.0); Monocytes % 5.3; Neutrophils % 63.5; Platelet Count 205 x1000/uL (130-400); RBC 3.48 m/cumm (4.50-6.00); RBC Distribution Width 15.5 % (11.8-14.1); White Blood Cell Count 5.27 k/cumm (4.4-10.8)
[2018-12-11 12:47] LABS: ALT 56 U/L (12-78); AST 62 U/L (15-37); Albumin 3.3 g/dL (3.4-5.0); Alkaline Phosphatase 90 U/L (46-116); Anion Gap 5.7 mmol/L (3-11); BUN 8 mg/dL (7-18); Bilirubin, Total 0.2 mg/dL (0.2-1.0); CO2 28.3 mmol/L (21.0-32.0); Calcium 9.2 mg/dL (8.5-10.1); Chloride 102 mmol/L (98-107); Glucose 97 mg/dL (70-100); Potassium 4.2 mmol/L (3.5-5.1); Sodium 136 mmol/L (136-145)
[2018-12-13 09:53] LABS: CA 19-9 17 U/mL (<35)
== END 2018-12-11 12:05 ==
PROVIDERS: Visit Provider Nurse Practitioner Adult Health
DX: C25.0 Malignant neoplasm of head of pancreas (principal)
CPT/HCPCS: 36415; 80053; 85025; 86301

== ENCOUNTER 2018-12-18 01:15 | Outpatient (CLI) | payer SELFPAY ==
[2018-12-18] MEDS: Omnipaque 350 MG/ML 50 ML BTL PO (08:28)
[2018-12-18] MEDS: Breeza Beverage 473 ML BTL PO ×2 (08:29→08:30)
--- NOTE | 2018-12-18 09:47 | DI.CT_ITS ---
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 METS PANCREATIC CA ON TREATMENT CT SCAN CHEST, ABDOMEN AND PELVIS: CT scan of the chest, abdomen and pelvis was performed following the uneventful administration of intravenous and oral contrast material. Comparison 09/18/18 CT ABDOMEN AND PELVIS: There has been decrease in size and number of the hepatic lesions compared to the prior examination. No new hepatic lesions are seen. The portal, superior mesenteric and splenic veins are patent. The gallbladder is negative. No stones are present. No biliary ductal dilatation is seen. There is again seen a biliary stent in place with pneumobilia present. There does appear to be some decrease in size of the pancreatic head compared to the prior examination. The pancreatic head area measures approximately 3 x 3.2 cm. The remainder of the pancreas is unremarkable. The spleen and adrenal glands are unremarkable. No suspicious renal mass is seen. Note is again made of a cyst in the left kidney. The urinary bladder is intact. There is diffuse thickening of the wall of the urinary bladder. Prostate gland, prostatic calcifications are seen. The bowel shows no evidence of obstruction or inflammation. There is a normal appendix present. The abdominal aorta is of normal caliber. No significant abdominal or pelvic adenopathy, ascites or pneumoperitoneum is present. Degenerative changes are seen in the spine. No osseous metastatic disease is present. IMPRESSION: 1. Interval decrease in size and number of the hepatic metastases since 09/18/18. 2. Apparent decrease in size of the pancreatic head mass 3. Diffuse thickening of the wall of the urinary bladder. This may represent an inflammatory infectious process. Chronic bladder outlet obstruction cannot be excluded. CT CHEST: The thoracic aorta is intact with mild atherosclerosis. Heart size is at the upper limits of normal. No significant pericardial effusion is seen. Coronary artery calcifications are present. No significant thoracic adenopathy is present. No pleural effusion or pneumothorax is identified. Dependent atelectatic changes are seen in the lungs. There is a small infiltrate seen in the left lingula. This may represent atelectasis or pneumonia. The tracheobronchial tree is unremarkable. No pulmonary nodules are present. No suspicious lytic or sclerotic lesions are seen in the bones. Degenerative changes are seen in the spine. IMPRESSION: No evidence of thoracic metastatic disease.
[2018-12-18] MEDS: Omnipaque 350 MG/ML 100 ML BTL IJ (09:51)
== END 2018-12-18 01:35 ==
PROVIDERS: Visit Provider Internal Medicine Hematology & Oncology
DX: C25.0 Malignant neoplasm of head of pancreas (principal); C78.7 Secondary malignant neoplasm of liver and intrahepatic bile duct; R93.89 Abnormal findings on diagnostic imaging of other specified body structures
CPT/HCPCS: 74177; 71260; J3490; Q9967

== ENCOUNTER 2018-12-19 12:02 | Outpatient (CLI) | payer SELFPAY ==
--- NOTE | 2018-12-19 12:54 | DI.US_ITS ---
SYMPTOMS/DIAGNOSIS: SEVERE BLE SWELLING, ? DVT, H/O MALIGNANT NEOPLASM OF HEAD OF PANCREAS, C25.0 RIGHT AND LEFT LEG ULTRASOUND: The study was carried out according to the usual protocol. The superficial, femoral, popliteal and proximal trifurcation in the superior portions of the legs are well seen. Good compressibility is noted throughout. Flow is demonstrated and flow augmentation was easily elicited with calf compression. There is also no evidence superficial thrombophlebitis or a reinoso's cyst in either the right or left leg. SUMMARY: There is no evidence of DVT.
== END 2018-12-19 12:22 ==
PROVIDERS: Visit Provider Nurse Practitioner Adult Health
DX: M79.89 Other specified soft tissue disorders (principal); C25.0 Malignant neoplasm of head of pancreas
CPT/HCPCS: 93970

== ENCOUNTER 2018-12-22 02:36 | Outpatient (CLI) | payer SELFPAY ==
[2018-12-22 12:08] LABS: Abs Immature Grans 0.21 k/cumm (0.0-0.09); HCT 35.2 % (40.0-50.0); Mean Corp. HGB Concentration 34.1 g/dL (32.0-36.0); Mean Corpuscular Hemoglobin 34.7 pg (27.0-33.0); Mean Corpuscular Volume 101.7 fL (80-95); Mean Platelet Volume 8.9 fL (8.0-11.0); Platelet Count 336 x1000/uL (130-400); RBC 3.46 m/cumm (4.50-6.00); RBC Distribution Width 15.6 % (11.8-14.1); White Blood Cell Count 6.95 k/cumm (4.4-10.8)
[2018-12-22 12:21] LABS: ALT 47 U/L (12-78); AST 51 U/L (15-37); Alkaline Phosphatase 103 U/L (46-116); Anion Gap 10.6 mmol/L (3-11); BUN 6 mg/dL (7-18); Bilirubin, Total 0.2 mg/dL (0.2-1.0); CO2 26.4 mmol/L (21.0-32.0); CREATININE 0.78 mg/dL (0.70-1.30); Chloride 102 mmol/L (98-107); Glucose 90 mg/dL (70-100); Sodium 139 mmol/L (136-145); Total Protein 7.2 g/dL (6.4-8.2)
[2018-12-22 12:34] LABS: Absolute Lymphocyte Count 2.22 k/cumm (1.2-3.4); Absolute Monocyte Count 0.63 k/cumm (0.11-0.7); Absolute Neutrophil Count 3.61 k/cumm (1.2-6.7)
[2018-12-22 12:35] LABS: Absolute Eosinophil Count 0.28 k/cumm (0.0-0.7); Diff Comment Manual Differential; Macrocytosis 1+
[2018-12-25 12:12] LABS: CA 19-9 17 U/mL (<35)
== END 2018-12-22 02:56 ==
PROVIDERS: Nurse Practitioner Adult Health; Visit Provider Internal Medicine Hematology & Oncology
DX: C25.0 Malignant neoplasm of head of pancreas (principal)
CPT/HCPCS: 36415; 80053; 85025; 86301

== ENCOUNTER 2018-12-29 02:02 | Outpatient (CLI) | payer SELFPAY ==
[2018-12-29 11:53] LABS: Abs Immature Grans 0.11 k/cumm (0.0-0.09); Absolute Basophil Count 0.04 k/cumm (0.0-0.2); Absolute Monocyte Count 1.26 k/cumm (0.11-0.7); Absolute Neutrophil Count 5.28 k/cumm (1.2-6.7); Basophils % 0.4; Eosinophils % 1.1; HCT 38.4 % (40.0-50.0); HGB 12.9 g/dL (13.5-17.5); Immature Grans % 1.2; Lymphocytes % 25.3; Mean Corp. HGB Concentration 33.6 g/dL (32.0-36.0); Mean Corpuscular Volume 101.3 fL (80-95); Mean Platelet Volume 8.4 fL (8.0-11.0); Monocytes % 13.9; Neutrophils % 58.1; RBC 3.79 m/cumm (4.50-6.00); RBC Distribution Width 15.8 % (11.8-14.1); White Blood Cell Count 9.09 k/cumm (4.4-10.8)
[2018-12-29 12:01] LABS: ALT 40 U/L (12-78); AST 32 U/L (15-37); Albumin 3.6 g/dL (3.4-5.0); Alkaline Phosphatase 103 U/L (46-116); BUN 21 mg/dL (7-18); Bilirubin, Total 0.3 mg/dL (0.2-1.0); CREATININE 0.95 mg/dL (0.70-1.30); Calcium 9.5 mg/dL (8.5-10.1); Chloride 100 mmol/L (98-107); Glucose 97 mg/dL (70-100); Potassium 3.8 mmol/L (3.5-5.1); Sodium 140 mmol/L (136-145); Total Protein 7.7 g/dL (6.4-8.2)
[2018-12-29 12:07] LABS: Diff Comment PLT Morph Reviewed; Macrocytosis 1+; Platelet Count 697 x1000/uL (130-400)
[2019-01-01 10:54] LABS: CA 19-9 16 U/mL (<35)
== END 2018-12-29 02:22 ==
PROVIDERS: Visit Provider Nurse Practitioner Adult Health
DX: C25.0 Malignant neoplasm of head of pancreas (principal)
CPT/HCPCS: 36415; 80053; 85025; 86301

== ENCOUNTER 2019-01-05 02:01 | Outpatient (CLI) | payer SELFPAY ==
[2019-01-05 12:29] LABS: HGB 12.3 g/dL (13.5-17.5); Mean Corp. HGB Concentration 34.2 g/dL (32.0-36.0); Mean Corpuscular Hemoglobin 34.1 pg (27.0-33.0); Mean Corpuscular Volume 99.7 fL (80-95); Mean Platelet Volume 8.9 fL (8.0-11.0); RBC 3.61 m/cumm (4.50-6.00); RBC Distribution Width 14.8 % (11.8-14.1); White Blood Cell Count 6.08 k/cumm (4.4-10.8)
[2019-01-05 12:38] LABS: ALT 32 U/L (12-78); AST 18 U/L (15-37); Albumin 3.4 g/dL (3.4-5.0); Alkaline Phosphatase 98 U/L (46-116); Anion Gap 9.4 mmol/L (3-11); BUN 17 mg/dL (7-18); Bilirubin, Total 0.3 mg/dL (0.2-1.0); CO2 26.6 mmol/L (21.0-32.0); Calcium 9.4 mg/dL (8.5-10.1); Chloride 102 mmol/L (98-107); Glucose 87 mg/dL (70-100); Potassium 3.8 mmol/L (3.5-5.1); Sodium 138 mmol/L (136-145); Total Protein 7.4 g/dL (6.4-8.2)
[2019-01-05 13:23] LABS: Platelet Count 228 x1000/uL (130-400)
[2019-01-05 13:24] LABS: Absolute Basophil Count 0.06 k/cumm (0.0-0.2); Absolute Lymphocyte Count 2.01 k/cumm (1.2-3.4); Absolute Monocyte Count 0.49 k/cumm (0.11-0.7); Absolute Neutrophil Count 3.34 k/cumm (1.2-6.7); Atypical Lymphocytes % 4; Diff Comment Manual Differential; Promyelocytes % 1 %
[2019-01-05 13:25] LABS: Polychromasia Present
[2019-01-08 11:24] LABS: CA 19-9 15 U/mL (<35)
== END 2019-01-05 02:21 ==
PROVIDERS: Visit Provider Internal Medicine Hematology & Oncology
DX: C25.0 Malignant neoplasm of head of pancreas (principal)
CPT/HCPCS: 36415; 80053; 85025; 86301

== ENCOUNTER 2019-01-17 01:27 | Outpatient (CLI) | payer SELFPAY ==
[2019-01-17 08:14] LABS: Abs Immature Grans 0.05 k/cumm (0.0-0.09); Absolute Basophil Count 0.02 k/cumm (0.0-0.2); Absolute Eosinophil Count 0.17 k/cumm (0.0-0.7); Absolute Lymphocyte Count 1.56 k/cumm (1.2-3.4); Absolute Monocyte Count 0.98 k/cumm (0.11-0.7); Absolute Neutrophil Count 4.08 k/cumm (1.2-6.7); Basophils % 0.3; Eosinophils % 2.5; HCT 40.2 % (40.0-50.0); HGB 13.6 g/dL (13.5-17.5); Immature Grans % 0.7; Lymphocytes % 22.7; Mean Corp. HGB Concentration 33.8 g/dL (32.0-36.0); Mean Corpuscular Hemoglobin 33.7 pg (27.0-33.0); Mean Corpuscular Volume 99.5 fL (80-95); Monocytes % 14.3; Neutrophils % 59.5; Platelet Count 320 x1000/uL (130-400); RBC 4.04 m/cumm (4.50-6.00); RBC Distribution Width 16.5 % (11.8-14.1); White Blood Cell Count 6.86 k/cumm (4.4-10.8)
[2019-01-17 08:58] LABS: ALT 50 U/L (12-78); AST 40 U/L (15-37); Albumin 3.6 g/dL (3.4-5.0); Alkaline Phosphatase 133 U/L (46-116); Anion Gap 7.1 mmol/L (3-11); BUN 12 mg/dL (7-18); Bilirubin, Total 0.3 mg/dL (0.2-1.0); CO2 31.9 mmol/L (21.0-32.0); CREATININE 0.68 mg/dL (0.70-1.30); Calcium 9.4 mg/dL (8.5-10.1); Chloride 100 mmol/L (98-107); Glucose 101 mg/dL (70-100); Potassium 4.5 mmol/L (3.5-5.1); Sodium 139 mmol/L (136-145); Total Protein 7.1 g/dL (6.4-8.2)
[2019-01-19 10:49] LABS: CA 19-9 11 U/mL (<35)
== END 2019-01-17 01:47 ==
PROVIDERS: Visit Provider Nurse Practitioner Adult Health
DX: C25.0 Malignant neoplasm of head of pancreas (principal)
CPT/HCPCS: 36415; 80053; 85025; 86301

== ENCOUNTER 2019-01-23 00:59 | Outpatient (CLI) | payer SELFPAY ==
--- NOTE | 2019-01-23 07:45 | DI.CT_ITS ---
SYMPTOM/DIAGNOSIS: PANCREATIC CA, C25.0, ON TREATMENT, RESTAGING EXAM CHEST/ABDOMEN AND PELVIC CT; CT scan of the chest, abdomen and pelvis was performed following oral and intravenous contrast material. Comparison is made with 12/18/18. ABDOMEN AND PELVIS: The liver is normal in size. There is stable number and size of the hepatic masses compared to the prior examination. The largest lesion in the right lobe of the liver measures 1.5 by 1.4 cm. This is essentially unchanged compared to the prior examination at which time it measured 1.6 by 1.4 cm. The portal, superior mesenteric and splenic veins are patent. There is again seen a biliary stent with pneumobilia present. The gallbladder is negative. The pancreatic head is grossly unchanged in size compared to the prior examination. There is stable mild dilatation of the pancreatic duct. The spleen is unremarkable. There is no evidence of an adrenal mass. The kidneys show normal and symmetric enhancement. No suspicious solid renal mass or obstruction is seen. There is a stable left renal cyst. The urinary bladder is intact. There is again seen thickening of the wall of the urinary bladder which appears more prominent compared to the prior examination. The reproductive organs are unremarkable. There is atherosclerosis of the abdominal aorta but no aneurysmal dilatation is seen. Incidental note is again made of a retro-aortic left renal vein. No significant abdominal or pelvic adenopathy, ascites or pneumoperitoneum is present. The bowel shows no evidence of obstruction or inflammation. There is a normal appendix visualized. There are degenerative changes seen in the spine. No suspicious lytic or sclerotic lesions are identified. IMPRESSION: 1. Stable appearance of the hepatic metastases and pancreatic head since 12/18/18. 2. Mild increase in the diffuse thickening of the wall of the urinary bladder. CHEST: The visualized thyroid gland is unremarkable. The thoracic aorta shows atherosclerosis. Heart size is within normal limits. No significant pericardial effusion is present. Coronary artery calcifications are identified. No significant mediastinal or hilar adenopathy is present. No significant axillary adenopathy is appreciated. No pleural effusion or pneumothorax is identified. There is scarring in the left lingula. There is a stable, 0.6 cm. nodule in the right lower lobe laterally. No new pulmonary nodules are seen. The tracheobronchial tree is unremarkable. No suspicious lytic or sclerotic lesions are seen in the bones. Degenerative changes are seen in the spine. IMPRESSION: Stable right lower lobe pulmonary nodule.
[2019-01-23] MEDS: Breeza Beverage 473 ML BTL PO ×2 (07:55→08:01)
[2019-01-23 07:56] LABS: Abs Immature Grans 0.02 k/cumm (0.0-0.09); Absolute Basophil Count 0.03 k/cumm (0.0-0.2); Absolute Lymphocyte Count 1.44 k/cumm (1.2-3.4); Absolute Monocyte Count 0.47 k/cumm (0.11-0.7); Absolute Neutrophil Count 2.38 k/cumm (1.2-6.7); Basophils % 0.7; Eosinophils % 2.3; HCT 36.3 % (40.0-50.0); HGB 12.5 g/dL (13.5-17.5); Immature Grans % 0.5; Lymphocytes % 32.4; Mean Corp. HGB Concentration 34.4 g/dL (32.0-36.0); Mean Corpuscular Hemoglobin 34.2 pg (27.0-33.0); Mean Corpuscular Volume 99.5 fL (80-95); Mean Platelet Volume 8.5 fL (8.0-11.0); Monocytes % 10.6; Neutrophils % 53.5; Platelet Count 311 x1000/uL (130-400); RBC 3.65 m/cumm (4.50-6.00); RBC Distribution Width 15.6 % (11.8-14.1); White Blood Cell Count 4.44 k/cumm (4.4-10.8)
[2019-01-23] MEDS: Omnipaque 350 MG/ML 50 ML BTL PO (07:56)
[2019-01-23 08:18] LABS: ALT 57 U/L (12-78); AST 44 U/L (15-37); Albumin 3.4 g/dL (3.4-5.0); Alkaline Phosphatase 102 U/L (46-116); Anion Gap 8.6 mmol/L (3-11); BUN 13 mg/dL (7-18); Bilirubin, Total 0.6 mg/dL (0.2-1.0); CO2 29.4 mmol/L (21.0-32.0); CREATININE 0.69 mg/dL (0.70-1.30); Calcium 9.6 mg/dL (8.5-10.1); Chloride 99 mmol/L (98-107); Glucose 99 mg/dL (70-100); Potassium 3.7 mmol/L (3.5-5.1); Sodium 137 mmol/L (136-145); Total Protein 7.3 g/dL (6.4-8.2)
[2019-01-23] MEDS: Omnipaque 350 MG/ML 100 ML BTL IJ (08:19)
== END 2019-01-23 01:19 ==
PROVIDERS: Visit Provider Nurse Practitioner Adult Health
DX: C25.0 Malignant neoplasm of head of pancreas (principal); Z92.21 Personal history of antineoplastic chemotherapy; N32.9 Bladder disorder, unspecified; R91.1 Solitary pulmonary nodule; C78.7 Secondary malignant neoplasm of liver and intrahepatic bile duct
CPT/HCPCS: 74177; 80053; 71260; 85025; J3490; Q9967

== ENCOUNTER 2019-01-26 02:43 | Outpatient (CLI) | payer SELFPAY ==
[2019-01-26 12:20] LABS: Abs Immature Grans 0.07 k/cumm (0.0-0.09); Absolute Basophil Count 0.01 k/cumm (0.0-0.2); Absolute Eosinophil Count 0.16 k/cumm (0.0-0.7); Absolute Lymphocyte Count 1.76 k/cumm (1.2-3.4); Absolute Monocyte Count 1.03 k/cumm (0.11-0.7); Absolute Neutrophil Count 4.54 k/cumm (1.2-6.7); Basophils % 0.1; Eosinophils % 2.1; HCT 36.8 % (40.0-50.0); HGB 12.7 g/dL (13.5-17.5); Immature Grans % 0.9; Lymphocytes % 23.2; Mean Corp. HGB Concentration 34.5 g/dL (32.0-36.0); Mean Corpuscular Hemoglobin 34.4 pg (27.0-33.0); Mean Corpuscular Volume 99.7 fL (80-95); Mean Platelet Volume 8.4 fL (8.0-11.0); Monocytes % 13.6; Neutrophils % 60.1; Platelet Count 233 x1000/uL (130-400); RBC 3.69 m/cumm (4.50-6.00); RBC Distribution Width 16.2 % (11.8-14.1); White Blood Cell Count 7.57 k/cumm (4.4-10.8)
[2019-01-26 13:06] LABS: ALT 47 U/L (12-78); AST 35 U/L (15-37); Albumin 3.2 g/dL (3.4-5.0); Alkaline Phosphatase 106 U/L (46-116); Anion Gap 8.4 mmol/L (3-11); BUN 16 mg/dL (7-18); Bilirubin, Total 0.3 mg/dL (0.2-1.0); CO2 27.6 mmol/L (21.0-32.0); CREATININE 0.85 mg/dL (0.70-1.30); Calcium 9.3 mg/dL (8.5-10.1); Chloride 105 mmol/L (98-107); Glucose 137 mg/dL (70-100); Potassium 3.7 mmol/L (3.5-5.1); Sodium 141 mmol/L (136-145)
[2019-01-29 13:36] LABS: CA 19-9 11 U/mL (<35)
== END 2019-01-26 03:03 ==
PROVIDERS: Visit Provider Nurse Practitioner Adult Health
DX: C25.0 Malignant neoplasm of head of pancreas (principal)
CPT/HCPCS: 36415; 80053; 85025; 86301

== ENCOUNTER 2019-02-02 02:51 | Outpatient (CLI) | payer SELFPAY ==
[2019-02-02 12:08] LABS: Abs Immature Grans 0.03 k/cumm (0.0-0.09); Absolute Basophil Count 0.05 k/cumm (0.0-0.2); Absolute Eosinophil Count 0.12 k/cumm (0.0-0.7); Absolute Lymphocyte Count 1.73 k/cumm (1.2-3.4); Absolute Neutrophil Count 4.61 k/cumm (1.2-6.7); Basophils % 0.7; Eosinophils % 1.6; HCT 40.7 % (40.0-50.0); HGB 13.9 g/dL (13.5-17.5); Immature Grans % 0.4; Lymphocytes % 22.9; Mean Corp. HGB Concentration 34.2 g/dL (32.0-36.0); Mean Corpuscular Volume 99.5 fL (80-95); Mean Platelet Volume 8.4 fL (8.0-11.0); Monocytes % 13.3; Neutrophils % 61.1; Platelet Count 371 x1000/uL (130-400); RBC 4.09 m/cumm (4.50-6.00); RBC Distribution Width 15.8 % (11.8-14.1); White Blood Cell Count 7.54 k/cumm (4.4-10.8)
[2019-02-02 12:36] LABS: ALT 45 U/L (12-78); AST 32 U/L (15-37); Albumin 3.5 g/dL (3.4-5.0); Alkaline Phosphatase 99 U/L (46-116); BUN 14 mg/dL (7-18); Bilirubin, Total 0.7 mg/dL (0.2-1.0); CREATININE 0.78 mg/dL (0.70-1.30); Calcium 9.6 mg/dL (8.5-10.1); Chloride 94 mmol/L (98-107); Glucose 91 mg/dL (70-100); Potassium 3.9 mmol/L (3.5-5.1); Sodium 136 mmol/L (136-145); Total Protein 7.7 g/dL (6.4-8.2)
[2019-02-05 14:17] LABS: CA 19-9 15 U/mL (<35)
== END 2019-02-02 03:11 ==
PROVIDERS: Visit Provider Nurse Practitioner Adult Health
DX: C25.0 Malignant neoplasm of head of pancreas (principal)
CPT/HCPCS: 36415; 80053; 85025; 86301

== ENCOUNTER 2019-02-09 04:14 | Outpatient (CLI) | payer SELFPAY ==
[2019-02-09 11:23] LABS: Abs Immature Grans 0.03 k/cumm (0.0-0.09); Absolute Basophil Count 0.04 k/cumm (0.0-0.2); Absolute Eosinophil Count 0.03 k/cumm (0.0-0.7); Absolute Lymphocyte Count 1.48 k/cumm (1.2-3.4); Absolute Monocyte Count 0.81 k/cumm (0.11-0.7); Absolute Neutrophil Count 2.92 k/cumm (1.2-6.7); Basophils % 0.8; Eosinophils % 0.6; HCT 34.8 % (40.0-50.0); HGB 11.7 g/dL (13.5-17.5); Immature Grans % 0.6; Lymphocytes % 27.9; Mean Corp. HGB Concentration 33.6 g/dL (32.0-36.0); Mean Corpuscular Hemoglobin 33.8 pg (27.0-33.0); Mean Corpuscular Volume 100.6 fL (80-95); Mean Platelet Volume 8.8 fL (8.0-11.0); Monocytes % 15.3; Neutrophils % 54.8; Platelet Count 212 x1000/uL (130-400); RBC 3.46 m/cumm (4.50-6.00); White Blood Cell Count 5.31 k/cumm (4.4-10.8)
[2019-02-09 11:32] LABS: ALT 33 U/L (12-78); AST 19 U/L (15-37); Albumin 2.9 g/dL (3.4-5.0); Alkaline Phosphatase 90 U/L (46-116); Anion Gap 3.2 mmol/L (3-11); BUN 13 mg/dL (7-18); Bilirubin, Total 0.3 mg/dL (0.2-1.0); CO2 29.8 mmol/L (21.0-32.0); CREATININE 0.82 mg/dL (0.70-1.30); Calcium 8.8 mg/dL (8.5-10.1); Chloride 104 mmol/L (98-107); Glucose 102 mg/dL (70-100); Sodium 137 mmol/L (136-145); Total Protein 6.7 g/dL (6.4-8.2)
[2019-02-12 10:42] LABS: CA 19-9 10 U/mL (<35)
== END 2019-02-09 04:34 ==
PROVIDERS: Visit Provider Nurse Practitioner Adult Health
DX: C25.0 Malignant neoplasm of head of pancreas (principal)
CPT/HCPCS: 36415; 80053; 85025; 86301

== ENCOUNTER 2019-02-16 03:52 | Outpatient (CLI) | payer SELFPAY ==
[2019-02-16 11:40] LABS: Abs Immature Grans 0.02 k/cumm (0.0-0.09); Absolute Basophil Count 0.02 k/cumm (0.0-0.2); Absolute Eosinophil Count 0.01 k/cumm (0.0-0.7); Absolute Lymphocyte Count 1.27 k/cumm (1.2-3.4); Absolute Monocyte Count 0.22 k/cumm (0.11-0.7); Absolute Neutrophil Count 2.58 k/cumm (1.2-6.7); Basophils % 0.5; Eosinophils % 0.2; HCT 32.4 % (40.0-50.0); HGB 11.1 g/dL (13.5-17.5); Immature Grans % 0.5; Lymphocytes % 30.8; Mean Corp. HGB Concentration 34.3 g/dL (32.0-36.0); Mean Corpuscular Hemoglobin 33.8 pg (27.0-33.0); Mean Corpuscular Volume 98.8 fL (80-95); Monocytes % 5.3; Neutrophils % 62.7; Platelet Count 113 x1000/uL (130-400); RBC 3.28 m/cumm (4.50-6.00); RBC Distribution Width 14.9 % (11.8-14.1); White Blood Cell Count 4.12 k/cumm (4.4-10.8)
[2019-02-16 11:53] LABS: ALT 49 U/L (12-78); AST 26 U/L (15-37); Albumin 3.1 g/dL (3.4-5.0); Alkaline Phosphatase 84 U/L (46-116); BUN 9 mg/dL (7-18); Bilirubin, Total 0.4 mg/dL (0.2-1.0); CREATININE 0.82 mg/dL (0.70-1.30); Chloride 99 mmol/L (98-107); Glucose 106 mg/dL (70-100); Potassium 3.8 mmol/L (3.5-5.1); Sodium 137 mmol/L (136-145)
[2019-02-19 09:36] LABS: CA 19-9 15 U/mL (<35)
== END 2019-02-16 04:12 ==
PROVIDERS: Internal Medicine Hematology & Oncology; Visit Provider Nurse Practitioner Adult Health
DX: C25.0 Malignant neoplasm of head of pancreas (principal)
CPT/HCPCS: 36415; 80053; 85025; 86301

== ENCOUNTER 2019-03-02 03:38 | Outpatient (CLI) | payer SELFPAY ==
[2019-03-02 11:02] LABS: Abs Immature Grans 0.11 k/cumm (0.0-0.09); Absolute Basophil Count 0.02 k/cumm (0.0-0.2); Absolute Eosinophil Count 0.13 k/cumm (0.0-0.7); Absolute Lymphocyte Count 1.62 k/cumm (1.2-3.4); Absolute Monocyte Count 1.09 k/cumm (0.11-0.7); Absolute Neutrophil Count 3.28 k/cumm (1.2-6.7); Basophils % 0.3; Eosinophils % 2.1; HCT 33.3 % (40.0-50.0); Immature Grans % 1.8; Lymphocytes % 25.9; Mean Corpuscular Volume 102.8 fL (80-95); Mean Platelet Volume 8.4 fL (8.0-11.0); Monocytes % 17.4; Neutrophils % 52.5; RBC 3.24 m/cumm (4.50-6.00); RBC Distribution Width 17.5 % (11.8-14.1); White Blood Cell Count 6.25 k/cumm (4.4-10.8)
[2019-03-02 11:25] LABS: ALT 42 U/L (16-63); AST 29 U/L (15-37); Albumin 3.2 g/dL (3.4-5.0); Alkaline Phosphatase 87 U/L (46-116); Anion Gap 8.6 mmol/L (3-11); BUN 12 mg/dL (7-18); Bilirubin, Total 0.3 mg/dL (0.2-1.0); CO2 29.4 mmol/L (21.0-32.0); CREATININE 0.89 mg/dL (0.70-1.30); Calcium 8.9 mg/dL (8.5-10.1); Chloride 102 mmol/L (98-107); Glucose 96 mg/dL (70-100); Potassium 4.1 mmol/L (3.5-5.1); Sodium 140 mmol/L (136-145); Total Protein 7.2 g/dL (6.4-8.2)
[2019-03-02 11:49] LABS: Platelet Count 669 x1000/uL (130-400)
[2019-03-02 11:50] LABS: Diff Comment Diff Reviewed; RBC Morphology Normal
[2019-03-05 11:24] LABS: CA 19-9 10 U/mL (<35)
== END 2019-03-02 03:58 ==
PROVIDERS: Visit Provider Internal Medicine Hematology & Oncology
DX: C25.0 Malignant neoplasm of head of pancreas (principal)
CPT/HCPCS: 36415; 80053; 85025; 86301

== ENCOUNTER 2019-03-07 07:53 | Outpatient (CLI) | payer SELFPAY ==
[2019-03-07] MEDS: Omnipaque 350 MG/ML 100 ML BTL IV (09:45)
[2019-03-07] MEDS: Breeza Beverage 473 ML BTL PO (09:46)
[2019-03-07] MEDS: Omnipaque 350 MG/ML 50 ML BTL PO (09:46)
--- NOTE | 2019-03-07 09:46 | DI.CT_ITS ---
SYMPTOM/DIAGNOSIS: PANCREATIC CA METASTASIZED TO LIVER, C25.9,C78.7, EVALUATE RESPONSE TO THERAPY CHEST/ABDOMEN AND PELVIC CT: CT scan of the chest, abdomen and pelvis was performed following the uneventful administration of intravenous and oral contrast material. Comparison examination is 01/23/19. ABDOMEN AND PELVIS: The liver is normal in size. There are stable number and size of the hepatic masses. No new lesions are seen. The portal, superior mesenteric and splenic veins are patent. The gallbladder is negative. No biliary ductal dilatation is seen. There is again seen a biliary stent with pneumobilia present. There has been no change in appearance of the pancreatic head compared to the prior examination. Mild dilatation of the pancreatic duct is again seen. The spleen is unremarkable. No evidence of an adrenal mass. The kidneys show normal and symmetric enhancement. No evidence of a solid renal mass or obstruction. There is again seen a left renal cyst. The urinary bladder is intact. No intraluminal mass is seen. The prostate gland appears stable. There is atherosclerosis of the abdominal aorta without aneurysmal dilatation. Incidental note is made of a retro-aortic left renal vein. No significant abdominal or pelvic adenopathy, ascites or pneumoperitoneum is present. The bowel shows no evidence of obstruction or inflammation. There is a normal appendix present. Degenerative changes are seen in the spine. No aggressive osseous lesions are present. IMPRESSION: No change in appearance of the abdomen and pelvis compared to the prior examination. No new evidence of abdominal or pelvic metastatic disease. CHEST: The thoracic aorta is of normal caliber with mild atherosclerosis. Heart size is within normal limits. No significant pericardial effusion is seen. No significant thoracic adenopathy is present. No pleural effusion or pneumothorax is identified. There has been no change in size of the 0.6 cm. right lower lobe pulmonary nodule. There is scarring and dependent atelectasis in the lungs. No focal consolidating infiltrate is seen. The tracheobronchial tree is unremarkable. Degenerative changes are seen in the spine. No aggressive osseous lesions are present. IMPRESSION: Stable pulmonary nodule.
== END 2019-03-07 08:13 ==
PROVIDERS: Visit Provider Registered Nurse Oncology
DX: C25.9 Malignant neoplasm of pancreas, unspecified (principal); C78.7 Secondary malignant neoplasm of liver and intrahepatic bile duct; R91.1 Solitary pulmonary nodule
CPT/HCPCS: 74177; 71260; J3490; Q9967

== ENCOUNTER 2019-03-09 02:39 | Outpatient (CLI) | payer SELFPAY ==
[2019-03-09 08:26] LABS: HCT 33.1 % (40.0-50.0); HGB 11.2 g/dL (13.5-17.5); Mean Corp. HGB Concentration 33.8 g/dL (32.0-36.0); Mean Corpuscular Hemoglobin 34.5 pg (27.0-33.0); Mean Corpuscular Volume 101.8 fL (80-95); Platelet Count 437 x1000/uL (130-400); RBC 3.25 m/cumm (4.50-6.00); RBC Distribution Width 16.5 % (11.8-14.1); White Blood Cell Count 10.25 k/cumm (4.4-10.8)
[2019-03-09 08:42] LABS: ALT 41 U/L (16-63); AST 30 U/L (15-37); Albumin 2.9 g/dL (3.4-5.0); Alkaline Phosphatase 89 U/L (46-116); Anion Gap 5.8 mmol/L (3-11); BUN 9 mg/dL (7-18); Bilirubin, Total 0.4 mg/dL (0.2-1.0); CO2 31.2 mmol/L (21.0-32.0); CREATININE 0.78 mg/dL (0.70-1.30); Calcium 9.2 mg/dL (8.5-10.1); Chloride 101 mmol/L (98-107); Glucose 108 mg/dL (70-100); Sodium 138 mmol/L (136-145); Total Protein 7.1 g/dL (6.4-8.2)
[2019-03-09 09:01] LABS: Absolute Lymphocyte Count 1.85 k/cumm (1.2-3.4); Absolute Monocyte Count 1.44 k/cumm (0.11-0.7); Absolute Neutrophil Count 6.66 k/cumm (1.2-6.7); Anisocytosis 1+; Diff Comment Manual Differential; Hypochromasia 1+; Macrocytosis 2+; Polychromasia Present
[2019-03-12 11:54] LABS: CA 19-9 12 U/mL (<35)
== END 2019-03-09 02:59 ==
PROVIDERS: Visit Provider Internal Medicine Hematology & Oncology
DX: C25.0 Malignant neoplasm of head of pancreas (principal)
CPT/HCPCS: 36415; 80053; 85025; 86301

== ENCOUNTER 2019-03-16 03:45 | Outpatient (CLI) | payer SELFPAY ==
[2019-03-16 08:04] LABS: Abs Immature Grans 0.14 k/cumm (0.0-0.09); HCT 34.8 % (40.0-50.0); HGB 11.5 g/dL (13.5-17.5); Mean Corpuscular Hemoglobin 33.5 pg (27.0-33.0); Mean Corpuscular Volume 101.5 fL (80-95); Mean Platelet Volume 8.1 fL (8.0-11.0); Platelet Count 174 x1000/uL (130-400); RBC 3.43 m/cumm (4.50-6.00); RBC Distribution Width 16.8 % (11.8-14.1)
[2019-03-16 08:21] LABS: ALT 55 U/L (16-63); AST 38 U/L (15-37); Albumin 3.3 g/dL (3.4-5.0); Alkaline Phosphatase 96 U/L (46-116); BUN 12 mg/dL (7-18); Bilirubin, Total 0.4 mg/dL (0.2-1.0); Calcium 9.1 mg/dL (8.5-10.1); Chloride 102 mmol/L (98-107); Glucose 111 mg/dL (70-100); Potassium 4.1 mmol/L (3.5-5.1); Sodium 138 mmol/L (136-145); Total Protein 7.5 g/dL (6.4-8.2)
[2019-03-16 08:59] LABS: Absolute Monocyte Count 0.38 k/cumm (0.11-0.7); Absolute Neutrophil Count 2.63 k/cumm (1.2-6.7); Atypical Lymphocytes % 0; Promyelocytes % 0 %
[2019-03-16 09:00] LABS: Diff Comment Manual Differential; RBC Morphology Normal
[2019-03-19 11:32] LABS: CA 19-9 11 U/mL (<35)
== END 2019-03-16 04:05 ==
PROVIDERS: Visit Provider Internal Medicine Hematology & Oncology
DX: C25.0 Malignant neoplasm of head of pancreas (principal)
CPT/HCPCS: 36415; 80053; 85025; 86301

== ENCOUNTER 2019-03-30 02:00 | Outpatient (CLI) | payer SELFPAY ==
[2019-03-30 09:19] LABS: Abs Immature Grans 0.14 k/cumm (0.0-0.09); Absolute Basophil Count 0.02 k/cumm (0.0-0.2); Absolute Eosinophil Count 0.26 k/cumm (0.0-0.7); Absolute Lymphocyte Count 1.43 k/cumm (1.2-3.4); Absolute Monocyte Count 1.22 k/cumm (0.11-0.7); Absolute Neutrophil Count 4.86 k/cumm (1.2-6.7); Basophils % 0.3; Eosinophils % 3.3; HGB 11.6 g/dL (13.5-17.5); Immature Grans % 1.8; Mean Corp. HGB Concentration 34.1 g/dL (32.0-36.0); Mean Corpuscular Hemoglobin 34.2 pg (27.0-33.0); Mean Corpuscular Volume 100.3 fL (80-95); Mean Platelet Volume 8.3 fL (8.0-11.0); Monocytes % 15.4; Neutrophils % 61.2; Platelet Count 561 x1000/uL (130-400); RBC 3.39 m/cumm (4.50-6.00); RBC Distribution Width 17.7 % (11.8-14.1); White Blood Cell Count 7.93 k/cumm (4.4-10.8)
[2019-03-30 09:41] LABS: ALT 27 U/L (16-63); AST 24 U/L (15-37); Albumin 3.1 g/dL (3.4-5.0); Alkaline Phosphatase 84 U/L (46-116); Anion Gap 7.6 mmol/L (3-11); BUN 9 mg/dL (7-18); Bilirubin, Total 0.3 mg/dL (0.2-1.0); CO2 27.4 mmol/L (21.0-32.0); CREATININE 0.73 mg/dL (0.70-1.30); Calcium 8.6 mg/dL (8.5-10.1); Chloride 100 mmol/L (98-107); Glucose 82 mg/dL (70-100); Sodium 135 mmol/L (136-145); Total Protein 6.9 g/dL (6.4-8.2)
[2019-04-02 09:21] LABS: CA 19-9 8 U/mL (<35)
== END 2019-03-30 02:20 ==
PROVIDERS: Visit Provider Internal Medicine Hematology & Oncology
DX: C25.0 Malignant neoplasm of head of pancreas (principal)
CPT/HCPCS: 36415; 80053; 85025; 86301

== ENCOUNTER 2019-04-06 02:28 | Outpatient (CLI) | payer SELFPAY ==
[2019-04-06 11:27] LABS: HCT 30.7 % (40.0-50.0); HGB 10.1 g/dL (13.5-17.5); Mean Corp. HGB Concentration 32.9 g/dL (32.0-36.0); Mean Corpuscular Hemoglobin 33.7 pg (27.0-33.0); Mean Corpuscular Volume 102.3 fL (80-95); Mean Platelet Volume 8.2 fL (8.0-11.0); Platelet Count 303 x1000/uL (130-400); RBC Distribution Width 17.2 % (11.8-14.1); White Blood Cell Count 7.04 k/cumm (4.4-10.8)
[2019-04-06 11:38] LABS: ALT 32 U/L (16-63); AST 25 U/L (15-37); Albumin 3.1 g/dL (3.4-5.0); Alkaline Phosphatase 82 U/L (46-116); Anion Gap 6.2 mmol/L (3-11); BUN 11 mg/dL (7-18); Bilirubin, Total 0.3 mg/dL (0.2-1.0); CO2 28.8 mmol/L (21.0-32.0); CREATININE 0.79 mg/dL (0.70-1.30); Calcium 8.7 mg/dL (8.5-10.1); Chloride 104 mmol/L (98-107); Glucose 94 mg/dL (70-100); Sodium 139 mmol/L (136-145); Total Protein 6.9 g/dL (6.4-8.2)
[2019-04-06 12:23] LABS: Absolute Eosinophil Count 0.07 k/cumm (0.0-0.7); Absolute Lymphocyte Count 1.62 k/cumm (1.2-3.4); Absolute Monocyte Count 1.13 k/cumm (0.11-0.7); Absolute Neutrophil Count 4.08 k/cumm (1.2-6.7); Diff Comment Manual Differential
[2019-04-06 12:24] LABS: Macrocytosis 1+
[2019-04-09 11:53] LABS: CA 19-9 8 U/mL (<35)
== END 2019-04-06 02:48 ==
PROVIDERS: Visit Provider Internal Medicine Hematology & Oncology
DX: C25.0 Malignant neoplasm of head of pancreas (principal)
CPT/HCPCS: 80053; 85025; 86301

== ENCOUNTER 2019-04-13 02:06 | Outpatient (CLI) | payer SELFPAY ==
[2019-04-13 09:45] LABS: Abs Immature Grans 0.04 k/cumm (0.0-0.09); Absolute Basophil Count 0.05 k/cumm (0.0-0.2); Absolute Eosinophil Count 0.05 k/cumm (0.0-0.7); Absolute Lymphocyte Count 1.24 k/cumm (1.2-3.4); Absolute Monocyte Count 0.86 k/cumm (0.11-0.7); Absolute Neutrophil Count 1.34 k/cumm (1.2-6.7); Basophils % 1.4; Eosinophils % 1.4; HCT 29.1 % (40.0-50.0); HGB 9.6 g/dL (13.5-17.5); Immature Grans % 1.1; Lymphocytes % 34.6; Mean Corpuscular Hemoglobin 33.6 pg (27.0-33.0); Mean Corpuscular Volume 101.7 fL (80-95); Mean Platelet Volume 8.4 fL (8.0-11.0); Neutrophils % 37.5; Platelet Count 128 x1000/uL (130-400); RBC 2.86 m/cumm (4.50-6.00); RBC Distribution Width 17.4 % (11.8-14.1); White Blood Cell Count 3.58 k/cumm (4.4-10.8)
[2019-04-13 10:03] LABS: Anisocytosis 1+; Diff Comment Diff Reviewed; Macrocytosis 1+; Nucleated RBC 1 /100WBC; Polychromasia Present
[2019-04-13 10:07] LABS: ALT 26 U/L (16-63); AST 25 U/L (15-37); Alkaline Phosphatase 76 U/L (46-116); Anion Gap 6.5 mmol/L (3-11); BUN 13 mg/dL (7-18); Bilirubin, Total 0.3 mg/dL (0.2-1.0); CO2 29.5 mmol/L (21.0-32.0); CREATININE 0.85 mg/dL (0.70-1.30); Calcium 8.7 mg/dL (8.5-10.1); Chloride 104 mmol/L (98-107); Glucose 83 mg/dL (70-100); Potassium 3.6 mmol/L (3.5-5.1); Sodium 140 mmol/L (136-145); Total Protein 6.7 g/dL (6.4-8.2)
[2019-04-16 11:36] LABS: CA 19-9 8 U/mL (<35)
== END 2019-04-13 02:26 ==
PROVIDERS: Visit Provider Internal Medicine Hematology & Oncology
DX: C25.0 Malignant neoplasm of head of pancreas (principal)
CPT/HCPCS: 36415; 80053; 85025; 86301

== ENCOUNTER 2019-04-19 01:09 | Outpatient (CLI) | payer SELFPAY ==
[2019-04-19 08:49] LABS: Abs Immature Grans 0.01 k/cumm (0.0-0.09); Absolute Basophil Count 0.02 k/cumm (0.0-0.2); Absolute Eosinophil Count 0.04 k/cumm (0.0-0.7); Absolute Lymphocyte Count 0.86 k/cumm (1.2-3.4); Absolute Monocyte Count 0.14 k/cumm (0.11-0.7); Absolute Neutrophil Count 0.62 k/cumm (1.2-6.7); Basophils % 1.2; Eosinophils % 2.4; HCT 26.6 % (40.0-50.0); HGB 8.6 g/dL (13.5-17.5); Immature Grans % 0.6; Lymphocytes % 50.9; Mean Corp. HGB Concentration 32.3 g/dL (32.0-36.0); Mean Corpuscular Hemoglobin 33.2 pg (27.0-33.0); Mean Corpuscular Volume 102.7 fL (80-95); Mean Platelet Volume 8.9 fL (8.0-11.0); Monocytes % 8.3; Neutrophils % 36.6; Platelet Count 165 x1000/uL (130-400); RBC 2.59 m/cumm (4.50-6.00); RBC Distribution Width 17.6 % (11.8-14.1)
[2019-04-19 09:05] LABS: ALT 35 U/L (16-63); AST 28 U/L (15-37); Albumin 2.7 g/dL (3.4-5.0); Alkaline Phosphatase 79 U/L (46-116); Anion Gap 6.4 mmol/L (3-11); BUN 8 mg/dL (7-18); Bilirubin, Total 0.3 mg/dL (0.2-1.0); CO2 28.6 mmol/L (21.0-32.0); CREATININE 0.69 mg/dL (0.70-1.30); Calcium 8.6 mg/dL (8.5-10.1); Chloride 102 mmol/L (98-107); Glucose 89 mg/dL (70-100); Sodium 137 mmol/L (136-145); Total Protein 6.4 g/dL (6.4-8.2)
[2019-04-19 09:31] LABS: White Blood Cell Count 1.69 k/cumm (4.4-10.8)
[2019-04-19 09:34] LABS: Anisocytosis 1+; Diff Comment Agrees w/ Instrument; Hypochromasia 1+; Polychromasia Present
--- NOTE | 2019-04-19 10:06 | DI.CT_ITS ---
EXAM: CT CHEST/ABD/PEL W CLINICAL HISTORY: RESPONSE TO THERAPY, NEOPLASM HEAD OF PANCREAS. TECHNIQUE: COMPARISON: CT CHEST/ABD/PEL W from 03/07/2019 FINDINGS: CT examination chest abdomen pelvis was performed with bolus infusion of 100 cc Omnipaque 350 and ing estion barium. Previously noted 6 millimeter right lower lobe lung nodule unchanged. No new intrapu lmonary mass. No pleural effusion. No mediastinal or hilar adenopathy. Right lobe hepatic lesion again noted measuring about 14 millimeters in diameter, grossly unchanged f rom prior study. Biliary stent again noted in position traversing pancreatic head mass, no gross int erval change in appearance. Mild associated duodenal wall thickening without evidence of obstruction . No new abdominal or pelvic adenopathy. Adrenals and kidneys are unremarkable. Spleen is unremark able. Urinary bladder wall thickening and prostatic enlargement noted. No bony lesion identified in the chest abdomen or pelvis. IMPRESSION: Stable right lobe hepatic lesion. Stable pulmonary nodule. Stable appearance of pancreatic head mas s with biliary stent in position.
[2019-04-19] MEDS: Omnipaque 350 MG/ML 100 ML BTL IV (10:20)
[2019-04-19] MEDS: Breeza Beverage 473 ML BTL PO ×2 (10:21→10:22)
[2019-04-19] MEDS: Omnipaque 350 MG/ML 50 ML BTL PO (10:22)
[2019-04-20 10:48] LABS: CA 19-9 10 U/mL (<35)
== END 2019-04-19 01:29 ==
PROVIDERS: Internal Medicine Hematology & Oncology; Visit Provider Registered Nurse Oncology
DX: C25.0 Malignant neoplasm of head of pancreas (principal); C78.7 Secondary malignant neoplasm of liver and intrahepatic bile duct; R91.1 Solitary pulmonary nodule; Z92.21 Personal history of antineoplastic chemotherapy
CPT/HCPCS: 74177; 80053; 71260; 85025; 86301; J3490; Q9967

== ENCOUNTER 2019-04-27 00:57 | Outpatient (CLI) | payer SELFPAY ==
[2019-04-27 07:59] LABS: Abs Immature Grans 0.09 k/cumm (0.0-0.09); HCT 32.6 % (40.0-50.0); HGB 10.7 g/dL (13.5-17.5); Mean Corp. HGB Concentration 32.8 g/dL (32.0-36.0); Mean Corpuscular Hemoglobin 33.5 pg (27.0-33.0); Mean Corpuscular Volume 102.2 fL (80-95); Mean Platelet Volume 8.2 fL (8.0-11.0); RBC 3.19 m/cumm (4.50-6.00); White Blood Cell Count 7.68 k/cumm (4.4-10.8)
[2019-04-27 08:03] LABS: Platelet Count 530 x1000/uL (130-400)
[2019-04-27 08:15] LABS: ALT 21 U/L (16-63); AST 21 U/L (15-37); Alkaline Phosphatase 106 U/L (46-116); BUN 8 mg/dL (7-18); Bilirubin, Total 0.3 mg/dL (0.2-1.0); CREATININE 0.75 mg/dL (0.70-1.30); Calcium 8.7 mg/dL (8.5-10.1); Chloride 101 mmol/L (98-107); Glucose 102 mg/dL (70-100); Potassium 4.1 mmol/L (3.5-5.1); Sodium 137 mmol/L (136-145); Total Protein 6.8 g/dL (6.4-8.2)
[2019-04-27 08:21] LABS: Absolute Eosinophil Count 0.15 k/cumm (0.0-0.7); Absolute Lymphocyte Count 1.23 k/cumm (1.2-3.4); Absolute Monocyte Count 1.46 k/cumm (0.11-0.7); Absolute Neutrophil Count 4.76 k/cumm (1.2-6.7); Atypical Lymphocytes % 5
[2019-04-27 08:22] LABS: Anisocytosis 2+; Diff Comment Manual Differential; Macrocytosis 1+; Polychromasia Present
[2019-04-30 10:53] LABS: CA 19-9 10 U/mL (<35)
== END 2019-04-27 01:17 ==
PROVIDERS: Visit Provider Internal Medicine Hematology & Oncology
DX: C25.0 Malignant neoplasm of head of pancreas (principal)
CPT/HCPCS: 36415; 80053; 85025; 86301

== ENCOUNTER 2019-05-04 08:51 | Outpatient (CLI) | payer SELFPAY ==
[2019-05-04 12:29] LABS: Abs Immature Grans 0.89 k/cumm (0.0-0.09); HCT 31.7 % (40.0-50.0); HGB 10.1 g/dL (13.5-17.5); Mean Corp. HGB Concentration 31.9 g/dL (32.0-36.0); Mean Corpuscular Hemoglobin 32.9 pg (27.0-33.0); Mean Corpuscular Volume 103.3 fL (80-95); Mean Platelet Volume 8.4 fL (8.0-11.0); RBC 3.07 m/cumm (4.50-6.00); RBC Distribution Width 18.2 % (11.8-14.1); White Blood Cell Count 9.58 k/cumm (4.4-10.8)
[2019-05-04 12:40] LABS: ALT 95 U/L (16-63); AST 53 U/L (15-37); Albumin 3.1 g/dL (3.4-5.0); Alkaline Phosphatase 248 U/L (46-116); Anion Gap 7.9 mmol/L (3-11); BUN 5 mg/dL (7-18); Bilirubin, Total 0.4 mg/dL (0.2-1.0); CO2 29.1 mmol/L (21.0-32.0); CREATININE 0.76 mg/dL (0.70-1.30); Calcium 9.3 mg/dL (8.5-10.1); Chloride 100 mmol/L (98-107); Glucose 104 mg/dL (70-100); Potassium 4.1 mmol/L (3.5-5.1); Sodium 137 mmol/L (136-145); Total Protein 7.4 g/dL (6.4-8.2)
[2019-05-04 12:43] LABS: Absolute Neutrophil Count 5.36 k/cumm (1.2-6.7); Platelet Count 352 x1000/uL (130-400)
[2019-05-04 12:44] LABS: Absolute Lymphocyte Count 1.63 k/cumm (1.2-3.4); Absolute Monocyte Count 1.63 k/cumm (0.11-0.7)
[2019-05-04 12:45] LABS: Anisocytosis 2+; Diff Comment Manual Differential; Polychromasia Present
[2019-05-04 12:46] LABS: Macrocytosis 1+
[2019-05-07 10:27] LABS: CA 19-9 14 U/mL (<35)
== END 2019-05-04 09:11 ==
PROVIDERS: Visit Provider Internal Medicine Hematology & Oncology
DX: C25.0 Malignant neoplasm of head of pancreas (principal)
CPT/HCPCS: 36415; 80053; 85025; 86301

== ENCOUNTER 2019-05-11 00:48 | Outpatient (CLI) | payer SELFPAY ==
[2019-05-11 08:49] LABS: HCT 29.1 % (40.0-50.0); HGB 9.6 g/dL (13.5-17.5); Mean Corpuscular Hemoglobin 33.8 pg (27.0-33.0); Mean Corpuscular Volume 102.5 fL (80-95); Mean Platelet Volume 8.3 fL (8.0-11.0); Platelet Count 185 x1000/uL (130-400); RBC 2.84 m/cumm (4.50-6.00); RBC Distribution Width 18.1 % (11.8-14.1); White Blood Cell Count 4.56 k/cumm (4.4-10.8)
[2019-05-11 09:07] LABS: Absolute Eosinophil Count 0.05 k/cumm (0.0-0.7); Absolute Monocyte Count 0.55 k/cumm (0.11-0.7); Absolute Neutrophil Count 2.19 k/cumm (1.2-6.7); Anisocytosis 1+; Diff Comment Manual Differential; Macrocytosis 1+; Polychromasia Present; Promyelocytes % 1 %
[2019-05-11 09:12] LABS: ALT 74 U/L (16-63); AST 43 U/L (15-37); Albumin 3.1 g/dL (3.4-5.0); Alkaline Phosphatase 137 U/L (46-116); Anion Gap 5.7 mmol/L (3-11); BUN 9 mg/dL (7-18); Bilirubin, Total 0.3 mg/dL (0.2-1.0); CO2 29.3 mmol/L (21.0-32.0); CREATININE 0.68 mg/dL (0.70-1.30); Calcium 9.2 mg/dL (8.5-10.1); Chloride 100 mmol/L (98-107); Glucose 99 mg/dL (70-100); Potassium 4.1 mmol/L (3.5-5.1); Sodium 135 mmol/L (136-145)
[2019-05-14 17:06] LABS: CA 19-9 16 U/mL (<35)
== END 2019-05-11 01:08 ==
PROVIDERS: Visit Provider Internal Medicine Hematology & Oncology
DX: C25.0 Malignant neoplasm of head of pancreas (principal)
CPT/HCPCS: 36415; 80053; 85025; 86301

== ENCOUNTER 2019-05-16 02:37 | Outpatient (CLI) | payer SELFPAY ==
[2019-05-16 15:39] LABS: Abs Immature Grans 0.04 k/cumm (0.0-0.09); Absolute Basophil Count 0.02 k/cumm (0.0-0.2); Absolute Eosinophil Count 0.14 k/cumm (0.0-0.7); Absolute Lymphocyte Count 1.53 k/cumm (1.2-3.4); Absolute Monocyte Count 0.18 k/cumm (0.11-0.7); Absolute Neutrophil Count 4.99 k/cumm (1.2-6.7); Basophils % 0.3; HCT 27.3 % (40.0-50.0); HGB 8.9 g/dL (13.5-17.5); Immature Grans % 0.6; Lymphocytes % 22.2; Mean Corp. HGB Concentration 32.6 g/dL (32.0-36.0); Mean Corpuscular Hemoglobin 33.7 pg (27.0-33.0); Mean Corpuscular Volume 103.4 fL (80-95); Mean Platelet Volume 8.6 fL (8.0-11.0); Monocytes % 2.6; Neutrophils % 72.3; Platelet Count 217 x1000/uL (130-400); RBC 2.64 m/cumm (4.50-6.00); RBC Distribution Width 18.4 % (11.8-14.1)
[2019-05-16 15:51] LABS: ALT 49 U/L (16-63); AST 30 U/L (15-37); Albumin 3.1 g/dL (3.4-5.0); Alkaline Phosphatase 114 U/L (46-116); Anion Gap 8.7 mmol/L (3-11); BUN 10 mg/dL (7-18); Bilirubin, Total 0.4 mg/dL (0.2-1.0); CO2 27.3 mmol/L (21.0-32.0); CREATININE 0.82 mg/dL (0.70-1.30); Calcium 9.2 mg/dL (8.5-10.1); Chloride 104 mmol/L (98-107); Glucose 87 mg/dL (70-100); Sodium 140 mmol/L (136-145); Total Protein 6.6 g/dL (6.4-8.2)
[2019-05-18 11:13] LABS: CA 19-9 11 U/mL (<35)
== END 2019-05-16 02:57 ==
PROVIDERS: Visit Provider Internal Medicine Hematology & Oncology
DX: C25.0 Malignant neoplasm of head of pancreas (principal)
CPT/HCPCS: 36415; 80053; 85025; 86301

== ENCOUNTER 2019-05-25 01:22 | Outpatient (CLI) | payer SELFPAY ==
[2019-05-25 10:17] LABS: ALT 24 U/L (16-63); AST 18 U/L (15-37); Abs Immature Grans 0.04 k/cumm (0.0-0.09); Absolute Basophil Count 0.01 k/cumm (0.0-0.2); Absolute Eosinophil Count 0.21 k/cumm (0.0-0.7); Absolute Lymphocyte Count 1.51 k/cumm (1.2-3.4); Absolute Monocyte Count 1.63 k/cumm (0.11-0.7); Absolute Neutrophil Count 6.43 k/cumm (1.2-6.7); Albumin 3.2 g/dL (3.4-5.0); Alkaline Phosphatase 107 U/L (46-116); Anion Gap 6.9 mmol/L (3-11); BUN 9 mg/dL (7-18); Basophils % 0.1; Bilirubin, Total 0.4 mg/dL (0.2-1.0); CO2 29.1 mmol/L (21.0-32.0); CREATININE 0.76 mg/dL (0.70-1.30); Calcium 8.9 mg/dL (8.5-10.1); Chloride 101 mmol/L (98-107); Eosinophils % 2.1; Glucose 98 mg/dL (70-100); HCT 33.1 % (40.0-50.0); HGB 10.7 g/dL (13.5-17.5); Immature Grans % 0.4; Lymphocytes % 15.4; Mean Corp. HGB Concentration 32.3 g/dL (32.0-36.0); Mean Corpuscular Hemoglobin 33.3 pg (27.0-33.0); Mean Corpuscular Volume 103.1 fL (80-95); Mean Platelet Volume 8.8 fL (8.0-11.0); Monocytes % 16.6; Neutrophils % 65.4; Platelet Count 504 x1000/uL (130-400); Potassium 3.7 mmol/L (3.5-5.1); RBC 3.21 m/cumm (4.50-6.00); RBC Distribution Width 18.4 % (11.8-14.1); Sodium 137 mmol/L (136-145); Total Protein 6.9 g/dL (6.4-8.2); White Blood Cell Count 9.83 k/cumm (4.4-10.8)
[2019-05-25 10:33] LABS: Diff Comment Agrees w/ Instrument
[2019-05-28 10:38] LABS: CA 19-9 18 U/mL (<35)
== END 2019-05-25 01:42 ==
PROVIDERS: Visit Provider Internal Medicine Hematology & Oncology
DX: C25.0 Malignant neoplasm of head of pancreas (principal)
CPT/HCPCS: 36415; 80053; 85025; 86301

== ENCOUNTER 2019-06-08 01:27 | Outpatient (CLI) | payer SELFPAY ==
[2019-06-08 09:49] LABS: Abs Immature Grans 0.05 k/cumm (0.0-0.09); HCT 33.9 % (40.0-50.0); HGB 11.5 g/dL (13.5-17.5); Mean Corp. HGB Concentration 33.9 g/dL (32.0-36.0); Mean Corpuscular Hemoglobin 32.6 pg (27.0-33.0); Mean Platelet Volume 8.9 fL (8.0-11.0); Platelet Count 334 x1000/uL (130-400); RBC 3.53 m/cumm (4.50-6.00); RBC Distribution Width 15.9 % (11.8-14.1); White Blood Cell Count 9.44 k/cumm (4.4-10.8)
[2019-06-08 10:07] LABS: ALT 53 U/L (16-63); AST 26 U/L (15-37); Albumin 3.2 g/dL (3.4-5.0); Alkaline Phosphatase 252 U/L (46-116); Anion Gap 6.5 mmol/L (3-11); BUN 6 mg/dL (7-18); Bilirubin, Total 0.8 mg/dL (0.2-1.0); CO2 29.5 mmol/L (21.0-32.0); Calcium 9.3 mg/dL (8.5-10.1); Chloride 96 mmol/L (98-107); Glucose 99 mg/dL (74-106); Potassium 4.1 mmol/L (3.5-5.1); Sodium 132 mmol/L (136-145); Total Protein 7.2 g/dL (6.4-8.2)
[2019-06-08 10:16] LABS: Absolute Eosinophil Count 0.47 k/cumm (0.0-0.7); Absolute Lymphocyte Count 2.45 k/cumm (1.2-3.4); Absolute Monocyte Count 0.76 k/cumm (0.11-0.7); Absolute Neutrophil Count 5.76 k/cumm (1.2-6.7); Atypical Lymphocytes % 1
[2019-06-08 10:17] LABS: Diff Comment Manual Differential; Macrocytosis 1+
[2019-06-08 10:18] LABS: Poikilocytes 2+
[2019-06-11 11:28] LABS: CA 19-9 27 U/mL (<35)
== END 2019-06-08 01:47 ==
PROVIDERS: Visit Provider Internal Medicine Hematology & Oncology
DX: C25.0 Malignant neoplasm of head of pancreas (principal)
CPT/HCPCS: 36415; 80053; 85025; 86301

== ENCOUNTER 2019-06-15 01:28 | Outpatient (CLI) | payer MEDICAID, SELFPAY ==
[2019-06-15 10:03] LABS: Abs Immature Grans 0.02 k/cumm (0.0-0.09); Absolute Basophil Count 0.05 k/cumm (0.0-0.2); Absolute Eosinophil Count 0.37 k/cumm (0.0-0.7); Absolute Lymphocyte Count 1.75 k/cumm (1.2-3.4); Absolute Monocyte Count 0.57 k/cumm (0.11-0.7); Absolute Neutrophil Count 6.59 k/cumm (1.2-6.7); Basophils % 0.5; HCT 37.1 % (40.0-50.0); HGB 11.9 g/dL (13.5-17.5); Immature Grans % 0.2; Lymphocytes % 18.7; Mean Corp. HGB Concentration 32.1 g/dL (32.0-36.0); Mean Corpuscular Hemoglobin 31.3 pg (27.0-33.0); Mean Corpuscular Volume 97.6 fL (80-95); Mean Platelet Volume 8.2 fL (8.0-11.0); Monocytes % 6.1; Neutrophils % 70.5; Platelet Count 410 x1000/uL (130-400); White Blood Cell Count 9.35 k/cumm (4.4-10.8)
[2019-06-15 10:25] LABS: ALT 33 U/L (16-63); AST 27 U/L (15-37); Albumin 3.7 g/dL (3.4-5.0); Alkaline Phosphatase 233 U/L (46-116); Anion Gap 8.2 mmol/L (3-11); BUN 17 mg/dL (7-18); Bilirubin, Total 0.5 mg/dL (0.2-1.0); CO2 30.8 mmol/L (21.0-32.0); CREATININE 0.88 mg/dL (0.70-1.30); Calcium 9.6 mg/dL (8.5-10.1); Chloride 100 mmol/L (98-107); Glucose 79 mg/dL (74-106); Potassium 3.9 mmol/L (3.5-5.1); Sodium 139 mmol/L (136-145); Total Protein 8.2 g/dL (6.4-8.2)
[2019-06-18 10:35] LABS: CA 19-9 32 U/mL (<35)
== END 2019-06-15 01:48 ==
PROVIDERS: Visit Provider Internal Medicine Hematology & Oncology
DX: C25.0 Malignant neoplasm of head of pancreas (principal)
CPT/HCPCS: 36415; 80053; 85025; 86301

== ENCOUNTER 2019-06-29 01:21 | Outpatient (CLI) | payer MEDICAID, SELFPAY ==
[2019-06-29 07:26] LABS: Abs Immature Grans 0.02 k/cumm (0.0-0.09); Absolute Basophil Count 0.02 k/cumm (0.0-0.2); Absolute Eosinophil Count 0.13 k/cumm (0.0-0.7); Absolute Lymphocyte Count 0.85 k/cumm (1.2-3.4); Absolute Monocyte Count 0.68 k/cumm (0.11-0.7); Basophils % 0.3; Eosinophils % 1.8; HCT 30.7 % (40.0-50.0); HGB 10.1 g/dL (13.5-17.5); Immature Grans % 0.3; Lymphocytes % 11.6; Mean Corp. HGB Concentration 32.9 g/dL (32.0-36.0); Mean Corpuscular Hemoglobin 30.8 pg (27.0-33.0); Mean Corpuscular Volume 93.6 fL (80-95); Mean Platelet Volume 8.2 fL (8.0-11.0); Monocytes % 9.3; Neutrophils % 76.7; Platelet Count 384 x1000/uL (130-400); RBC 3.28 m/cumm (4.50-6.00); RBC Distribution Width 15.3 % (11.8-14.1)
[2019-06-29 08:15] LABS: ALT 231 U/L (16-63); AST 255 U/L (15-37); Albumin 3.3 g/dL (3.4-5.0); Alkaline Phosphatase 752 U/L (46-116); BUN 10 mg/dL (7-18); Bilirubin, Total 2.1 mg/dL (0.2-1.0); CREATININE 0.59 mg/dL (0.70-1.30); Calcium 9.1 mg/dL (8.5-10.1); Chloride 94 mmol/L (98-107); Glucose 110 mg/dL (74-106); Potassium 3.7 mmol/L (3.5-5.1); Sodium 129 mmol/L (136-145); Total Protein 7.3 g/dL (6.4-8.2)
[2019-07-02 11:56] LABS: CA 19-9 33 U/mL (<35)
== END 2019-06-29 01:41 ==
PROVIDERS: Visit Provider Internal Medicine Hematology & Oncology
DX: C25.0 Malignant neoplasm of head of pancreas (principal)
CPT/HCPCS: 36415; 80053; 85025; 86301

== ENCOUNTER 2019-06-29 10:17 | Emergency (ER) | payer MEDICAID, SELFPAY ==
[2019-06-29] VITALS (20 sets, daily range): BP systolic 132–154; BP diastolic 72–87; PULSE 66–78; RESP 15–20; TEMP 36.8; O2SAT 98–100
[2019-06-29] MEDS: Normal Saline 1,000 ML 1000 ML IV (10:30)
--- NOTE | 2019-06-29 10:40 | W.ED.GENAD ---
Discharge Plan Disposition Patient Disposition: AGAINST MEDICAL ADVICE Discharge Details Chief Complaint: Abd Prob Clinical Impression: Acute pancreatitis, Obstruction of pancreatic stent Primary Care Provider: None,None ED Provider: Ayaan Middleton Home Meds and New Rx's Prescriptions: Continued acetaminophen 325 mg Capsule 650 mg PO PRN PRNRF: 0 gabapentin 300 mg Capsule 300 mg PO DAILY RF: 0 lisinopril 5 mg Tablet 5 mg PO DAILY RF: 0 furosemide 20 mg Tablet 20 mg PO DAILY RF: 0 Discharge Instructions Instructions: Pancreatitis (ED) Additional Instructions: Mr. Cohen your pancreatic stent is obstructed today for you at risk for pancreatitis and cholangitis both of these conditions can be life-threatening and we have advised that you allow hospital admission with eventual transfer to [facility] for GI evaluation and stent clearance. Since you are unwilling to stay in the hospital we discussed your case with the gastroenterology department at [facility] and they will be reaching out to you to schedule this outpatient procedure in the meantime should you deteriorate in any way or change your mind please return to the emergency department immediately so we can continue your care. Both myself and the physicians at [facility] are concerned that you may deteriorate over the coming days and we asked that you return at any time to continue your care Discharge Data Discharge Date/Time-TO BE ENTERED AT DEPARTURE: 06/29/19 13:10 Medical Decision Making 58-year-old male alcoholic with pancreatic cancer currently undergoing chemotherapy due for chemo today presents with abdominal pain nausea vomiting worse yesterday than today. Broad differential diagnosis includes gastritis obstruction ileus. No right lower quadrant pain over McBurney's point no Benítez sign no increased jaundice. Patient chronically constipated last small bowel movement yesterday a day before. No hematemesis no rectal bleeding no dark stools 10:51 AM regular sinus rhythm 68 normal axis no ectopy no ST elevation large voltage in precordial leads consistent with left ventricular hypertrophy 12:23 PM patient resting comfortably complains of mild lower abdominal pain refuses try p.o. states that when his pain increases. Labs significant for mild hyponatremia with a sodium of 130 conjugated bilirubin of 1.08 with a total of 1.9 very mild transaminitis with an AST of 237 and ALT of 238 [place] [address] returns with continued pancreatic mass and an occluded pancreatic stent. Diagnosis consistent with stent obstruction and pancreatitis. discussed findings with patient explained to patient that I would like to transfer the patient to [facility] for GI evaluation and likely stent revision. Patient states that he does not want ambulance transfer but would like to arrange his own transport probably in the next few days as he is not ready to go to [facility] today. We had a long discussion about the chances for clinical deterioration due to his inability to take p.o. fluids and food regularly, worsening pancreatitis , possible development of a surgical emergency . patient able to restate the risk of and disability that may result in not having further operative attention to his pancreatic stent obstruction and understands that he can return to the emergency department anytime for any reason including if his symptoms worsen or is having more pain. Patient demonstrates full capacity to make this decision I will call [facility] and discuss less optimal options to arrange some kind of follow-up for the patient there Reached [facility] who recommended inpatient admission for the patient for possible transfer for the procedure to clear his pancreatic stent obstruction. Discussed options with patient both admission to [facility] or transfer to [facility] patient refuses admission to any hospital at this time prefers discharge and request [facility] to call him with an appointment after he arranges transport there. Spoke with gastroenterology at [facility] will have patient contacted confirmed contact information for possible procedure Tuesday or Tuesday patient understands return to the emergency department if he changes mind if his condition worsens or any other concerns. HPI 58-year-old male past medical history of alcoholism diagnosed approximately 1 year ago with pancreatic cancer last chemo 06/15/2019 and followed at cancer center in [facility] presents episode of nausea and vomiting x2 with intense diffuse lower abdominal pain yesterday. Pain continues today but much milder no nausea has not tried p.o. since yesterday. No fever chills shortness of breath chest pain or loss of consciousness. Patient due for chemo this morning but was sent up to the emergency department for evaluation secondary to the pain. Pain is sharp diffuse across lower abdomen sharp in nature nonradiating no back pain nothing makes it better or worse except for time. General Date/Time Provider Initiated Documentation: 06/29/19 10:23. Related Data Home Medications Medication Instructions Recorded Confirmed acetaminophen 650 mg PO PRN PRN 06/24/18 06/29/19 furosemide 20 mg PO DAILY 06/29/19 06/29/19 gabapentin 300 mg PO DAILY 06/29/19 06/29/19 lisinopril 5 mg PO DAILY 06/29/19 06/29/19 Allergies Allergy/AdvReac Type Severity Reaction Status Date / Time No Known Allergies Allergy Unverified 06/29/19 10:35 General Stated Complaint: Abd Prob DARBY: 3 Review of Systems Narrative: No sob/chest pain/nausea/vomiting/loss of consciousness/fever/chills/ or trauma. All other systems reviewed and negative or stated as positive here or in HPI above[] PFSH Social History Smoking/Tobacco Use Status: Current every day Drug use: Never Do you feel safe in your relationship?: Yes Exam Narrative Exam Narrative: Pulse oximetry reviewed by me and is normal [] Constitutional: Pt is in no acute distress. pt is well appearing. oriented to person, place, and time. Eyes: conjunctivae are normal. Pupils are equal, round, and reactive to light. No scleral icterus. extraocular muscles are intact Ears/Nose/Mouth/Throat: mucus membranes are moist. Musculoskeletal: neck is supple. normal range of motion in all extremities. Cardiovascular: Normal rate and rhythm. No lower extremity edema regular rate and rhythm [] Respiratory: effort is normal . pt exhibits no stridor or respiratory distress. Lungs clear to auscultation [] GastrointestinaI: abdomen soft, +BS, mild tender to palpation, -rebound, -guarding. No skin changes no CVAT no urinary symptoms no suprapubic pain Neurological: alert and oriented to person, place, and time. he has normal strength, no tremor. Skin: Skin is warm and dry. he is not diaphoretic. Distal perfusion in tact, warm extremities, cap refill ? 2 seconds. Hem/Lymph/Imm: No cervical LAD, no goiter, no conjunctival pallor Psych: normal mood and affect. behavior is normal Triage and nurse notes reviewed.[] Course Vital Signs Vital signs: Vital Signs Temperature 36.8 C 06/29/19 10:17 Pulse 73 06/29/19 10:17 Respiratory Rate 18 06/29/19 10:17 Blood Pressure 154/76 H 06/29/19 10:17 Pulse Oximetry 98 06/29/19 10:17 Temperature 36.8 C 06/29/19 10:17 Temperature Source Oral 06/29/19 10:17 Pulse 73 06/29/19 10:17 Respiratory Rate 18 06/29/19 10:17 Respiratory Effort 06/29/19 10:22 Blood Pressure 154/76 H 06/29/19 10:17 Blood Pressure Position Supine 06/29/19 10:17 Pulse Oximetry 98 06/29/19 10:17 Oxygen Delivery Method Room Air 06/29/19 10:17 Oxygen Flow Rate 0 06/29/19 10:17 Pain Level 3 06/29/19 10:33 Comment 06/29/19 10:17
[2019-06-29 10:45] LABS: Abs Immature Grans 0.02 k/cumm (0.0-0.09); Absolute Basophil Count 0.02 k/cumm (0.0-0.2); Absolute Eosinophil Count 0.13 k/cumm (0.0-0.7); Absolute Lymphocyte Count 0.81 k/cumm (1.2-3.4); Absolute Monocyte Count 0.87 k/cumm (0.11-0.7); Basophils % 0.3; Eosinophils % 1.6; HCT 32.3 % (40.0-50.0); HGB 10.6 g/dL (13.5-17.5); Immature Grans % 0.3; Lymphocytes % 10.2; Mean Corp. HGB Concentration 32.8 g/dL (32.0-36.0); Mean Corpuscular Hemoglobin 30.8 pg (27.0-33.0); Mean Corpuscular Volume 93.9 fL (80-95); Mean Platelet Volume 8.3 fL (8.0-11.0); Monocytes % 10.9; Neutrophils % 76.7; Platelet Count 385 x1000/uL (130-400); RBC 3.44 m/cumm (4.50-6.00); RBC Distribution Width 15.5 % (11.8-14.1); White Blood Cell Count 7.95 k/cumm (4.4-10.8)
[2019-06-29 10:59] LABS: ALT 238 U/L (16-63); AST 237 U/L (15-37); Albumin 3.5 g/dL (3.4-5.0); Alkaline Phosphatase 795 U/L (46-116); Anion Gap 8.4 mmol/L (3-11); BUN 9 mg/dL (7-18); Bilirubin, Direct 1.08 mg/dL (0.00-0.20); Bilirubin, Total 1.9 mg/dL (0.2-1.0); CO2 27.6 mmol/L (21.0-32.0); CREATININE 0.56 mg/dL (0.70-1.30); Calcium 9.2 mg/dL (8.5-10.1); Chloride 94 mmol/L (98-107); Glucose 96 mg/dL (74-106); Magnesium 1.8 mg/dL (1.8-2.4); Potassium 3.8 mmol/L (3.5-5.1); Sodium 130 mmol/L (136-145); Total Protein 7.8 g/dL (6.4-8.2)
[2019-06-29 11:14] LABS: Lipase 3883 U/L (73-393)
--- NOTE | 2019-06-29 11:22 | DI.CT_ITS ---
EXAM: CT ABDOMEN PELVIS W CLINICAL HISTORY: Abdominal pain TECHNIQUE: CT examination of the abdomen and pelvis was performed with a bolus infusion of 100 cc of Omnipaque 350. COMPARISON: CT CHEST/ABD/PEL W from 04/19/2019 FINDINGS: Images obtained through the lung bases are unremarkable. Today's scan does not include the portion o f the right lung in which a 6 millimeter pulmonary nodule was identified on examination of April 29. Right hepatic lobe contains an indeterminate 12 millimeter in diameter nodule, slightly less prominen t than on prior examination. This may represent slight changes in appearance of hemangioma due to sl ight phase differences post contrast administration. Pancreatic head mass with a pancreatic stent again noted. The mass has increased in size, on transax ial images maximal diameter now about 65 x 56 millimeters compared to 54 x [address] udy. Pancreatic stent now contains high attenuation material which was not previously present. The proximal biliary structures are dilated on today's examination, common hepatic duct measures about 19 millimeters in greatest diameter on today's examination compared to 9 millimeters on prior study. No change in appearance of adrenals, kidneys or spleen. Abdominal aorta is of normal diameter and no major vascular abnormality seen. No adenopathy identified in the abdomen or pelvis apart from quest ion slight prominence of peripancreatic nodes. No new bony lesion identified. Urinary bladder wall is thickened as was noted on prior examination. IMPRESSION: Increased size of pancreatic head tumor with new obstruction of the pancreatic biliary stent since ex amination of 04/19/2019.
[2019-06-29] MEDS: Omnipaque 350 MG/ML 100 ML BTL IJ (11:38)
== END 2019-06-29 13:10 | disposition left against medical advice (07) ==
LOC: ER 11:21
PROVIDERS: Emergency Provider Emergency Medicine
DX: K85.90 Acute pancreatitis without necrosis or infection, unspecified (principal); T85.598A Other mechanical complication of other gastrointestinal prosthetic devices, implants and grafts, initial encounter; R11.2 Nausea with vomiting, unspecified; R10.84 Generalized abdominal pain; C25.9 Malignant neoplasm of pancreas, unspecified; Z79.899 Other long term (current) drug therapy; F10.20 Alcohol dependence, uncomplicated; Z53.29 Procedure and treatment not carried out because of patient's decision for other reasons
CPT/HCPCS: 36415; 80053; 80076; 83690; 93005; 96360; 96361; 99285; 74177; 83735; 85025; 93010; J3490

== ENCOUNTER 2019-08-27 01:38 | Outpatient (CLI) | payer SELFPAY ==
--- NOTE | 2019-08-27 | DI.CT_ITS ---
EXAM: CT CHEST/ABD/PEL W CLINICAL HISTORY: PANCREATIC CA, C25.0, RESTAGING EXAM, CHECK RESPONSE TO THERAPY. TECHNIQUE: Imaging Protocol: Axial computed tomography images with coronal and sagittal reformatted images were created and reviewed CONTRAST MATERIAL: Intravenous: Omnipaque 350 Contrast volume:100 mL Oral: Yes COMPARISON: CT ABDOMEN PELVIS W from 06/29/2019 FINDINGS: CHEST: Thyroid: Unremarkable. Tracheobronchial tree: Patent where visualized. Mediastinum and Carleen: No dominant adenopathy or fluid collection. Pulmonary parenchyma: 0.7 cm right lower lobe pulmonary nodule. No focal infiltrates. No architectura l distortion. Pleura: No effusion or pneumothorax. Lymph nodes: Within normal limits. Aorta: Atherosclerosis. Heart: Upper limits of normal in size. No pericardial effusion. Marked coronary artery calcification. Bones: Degenerative changes. Old compression deformity at T6. ABDOMEN: Liver: There are new hypodensities seen within the liver. Newest lesions are seen in the left lobe. They measure up to 1 centimeter in size. The portal, superior mesenteric and splenic veins are aldana nt. Gallbladder and biliary tract: No radiodense calculus or dilation. The patient has a biliary stent re sulting in pneumobilia in the liver. Pancreas: The pancreatic head mass measures 6.2 cm x 5.6 cm by 6.5 cm. This compares with 6.5 x 5.6 c m 6.4 cm. There is atrophy of the distal pancreas. Spleen: Normal. Kidneys: Normal size, contour and axis. Stable nonobstructing stone in the lower pole of the left kid mor. Stable left renal cyst. Note is made of a retroaortic left renal vein. Adrenal glands: No masses seen. Aorta: Abdominal portion non-dilated. Atherosclerosis. Lymph nodes: There is an enlarged left periaortic lymph node measuring 0.4 x 1.4 cm. There is an enl arged peripancreatic lymph node again noted. PELVIS: Bladder: There has been worsening of the diffuse urinary bladder wall thickening compared to the prio r examination. Bowel: No obstruction or bowel wall thickening. No evidence of acute appendicitis. Peritoneal cavity: No ascites, collection or mesenteric inflammatory response. Bones: No new bony lesion. Reproductive organs: Within normal limits. IMPRESSION: 1. Interval increase in number of hypodensities within the liver suggesting worsening metastatic dise ase. 2. Stable pancreatic head mass. 3. Enlarged left periaortic lymph node. New since the prior examination. 4. 0.7 cm right lower lobe pulmonary nodule. 5. Findings were discussed with the emergency department on the date of the examination. DATA REPOSITORY: All CT scans at this facility are submitted to the National Radiology Data Registry (NRDR) Dose Index Registry (DIR) with the [employer] (ACR). RADIATION OPTIMIZATION: All CT scans at this facility use at least one of these dose optimization te chniques: automated exposure control; mA and/or kV adjustment per patient size (includes targeted exa ms where dose is matched to clinical indication); or iterative reconstruction.
[2019-08-27 07:33] LABS: Abs Immature Grans 0.01 k/cumm (0.0-0.09); Absolute Basophil Count 0.04 k/cumm (0.0-0.2); Absolute Eosinophil Count 0.17 k/cumm (0.0-0.7); Absolute Lymphocyte Count 1.13 k/cumm (1.2-3.4); Absolute Monocyte Count 0.63 k/cumm (0.11-0.7); Absolute Neutrophil Count 4.02 k/cumm (1.2-6.7); Basophils % 0.7; Eosinophils % 2.8; Immature Grans % 0.2 %; Lymphocytes % 18.8; Mean Corp. HGB Concentration 31.3 g/dL (32.0-36.0); Mean Corpuscular Hemoglobin 27.5 pg (27.0-33.0); Mean Corpuscular Volume 88.1 fL (80-95); Mean Platelet Volume 8.6 fL (8.0-11.0); Monocytes % 10.5; Platelet Count 415 x1000/uL (130-400); RBC 2.18 m/cumm (4.50-6.00); RBC Distribution Width 15.5 % (11.8-14.1)
[2019-08-27 07:51] LABS: ALT 13 U/L (16-63); AST 16 U/L (15-37); Albumin 2.9 g/dL (3.4-5.0); Alkaline Phosphatase 111 U/L (46-116); Anion Gap 7.6 mmol/L (3-11); BUN 6 mg/dL (7-18); Bilirubin, Total 0.3 mg/dL (0.2-1.0); CO2 26.4 mmol/L (21.0-32.0); Calcium 8.6 mg/dL (8.5-10.1); Chloride 98 mmol/L (98-107); Glucose 100 mg/dL (74-106); Sodium 132 mmol/L (136-145); Total Protein 6.5 g/dL (6.4-8.2)
[2019-08-27 08:04] LABS: Anisocytosis 1+; Diff Comment RBC Morph Reviewed; HCT 19.2 % (40.0-50.0); Hypochromasia 2+; Poikilocytes 1+
[2019-08-27] MEDS: Omnipaque 350 MG/ML 50 ML BTL PO (08:51)
[2019-08-27] MEDS: Omnipaque 350 MG/ML 100 ML BTL IV (08:51)
[2019-08-27] MEDS: Normal Saline Flush 10 ML SYR IVP (08:52)
[2019-08-27] MEDS: Breeza Beverage 473 ML BTL PO (08:53)
[2019-08-27 15:45] LABS: Iron 11 ug/dL (65-175); Total Iron Binding Capacity 279 ug/dL (250-450); Transferrin Sat 4 % (20-55)
[2019-08-27 15:59] LABS: Ferritin 76 ng/mL (26-388)
[2019-08-29 10:53] LABS: CA 19-9 26 U/mL (<35)
== END 2019-08-27 01:58 ==
PROVIDERS: Surgery; Visit Provider Internal Medicine Hematology & Oncology
DX: C25.0 Malignant neoplasm of head of pancreas (principal); Z12.89 Encounter for screening for malignant neoplasm of other sites; R91.1 Solitary pulmonary nodule; K76.89 Other specified diseases of liver; R59.0 Localized enlarged lymph nodes; N32.89 Other specified disorders of bladder
CPT/HCPCS: 36415; 74177; 80053; 71260; 82728; 83540; 83550; 85025; 86301; J3490; Q9967

== ENCOUNTER 2019-08-27 08:53 | Day surgery (SDC) | payer SELFPAY ==
[2019-08-27] VITALS (42 sets, daily range): BP systolic 124–163; BP diastolic 66–91; PULSE 66–82; RESP 13–21; TEMP 36.4–37.3; O2SAT 97–100
--- NOTE | 2019-08-27 09:01 | ED.GENADUL_ITS ---
Discharge Plan Disposition Patient Disposition: [facility] INPATIENT Condition: Fair Discharge Details Chief Complaint: GenMedical Clinical Impression: Anemia, Pancreas cancer, GI bleed Attending Provider: Melissa Gonzalez Primary Care Provider: None,None ED Provider: Aure Edwards Discharge Orders Discharge Orders: Discharge Order (Routine); Ordered 08/27/19 Ordered By: Melissa Gonzalez Discharge Data Discharge Date/Time-TO BE ENTERED AT DEPARTURE: 08/27/19 17:54 Medical Decision Making Patient is a 59-year-old gentleman with known history of pancreatic cancer. He reports that he is not currently undergoing any treatment. He reports that in June he had his pancreatic stent replaced in [facility] and since that time, he has been having severe abdominal discomfort. He denies any fevers or chills. States that he has been intermittently constipated since his surgery in June. He reports a prior to that, he was having a bowel movement daily and now he may go every 2 to 3 days. He denies any melena or hematochezia. Denies any hematuria. Patient is not anticoagulated. He denies any bleeding from his gums. States that he has been nauseated but denies any vomiting, no hematemesis. Denies any cough. No shortness of breath or chest pain. On exam, patient appears chronically ill. He is notably pale. I not see any evidence of jaundiced skin he does have jaundice intraorally. He does have a palpable mass just right of midline. No tenderness is elicited on exam. Abdomen is otherwise soft with no real palpable mass appreciated. Lungs are clear. Normal cardiac exam. Normal rectal exam. Stool is quite dark, I am concerned for possible GI bleed. Contacted by radiology. Pancreatic head mass noted, no growth. Advised 6-7cm. New hepatic mets. Bowel is patent with contrast through, no obstruction. Heme positive guaiac. Consulted with Dr. Scott, patient's oncologist, we discussed the patient's presentation. He advised that the patient was lost to follow-up. He advised patient should have a colonoscopy within the next few days. He agreed with a transfusion today. We did discuss the new findings in the liver. He reports patient did have 1 known lesion in the liver on the pulmonary nodule was noted. Patient I discussed transfusion and . We discussed risk/benefits of the procedure. He voiced understanding and wishes to proceed. Have ordered 2 units of PRBCs. Consulted with Dr. Gonzalez advised to increase from 2 units to 4 units. She is advises the patient has not anything to eat today she would perform a endoscopy on the patient this afternoon. Patient given IV Protonix. Patient is tolerating transfusion well. Taken to the operating room for endoscopy. All the patient's questions and concerns were addressed. He plans to follow-up with oncology on Tuesday as previously scheduled. HPI General Mode of arrival: ambulatory . Date/Time Provider Initiated Documentation: 08/27/19 08:59 . Limitations to Documentation: no limitations . Information obtained by: patient and RN notes reviewed . History of Present Illness 59 year old M presents to the emergency department with the chief complaint of patient presents after critical H&H, described as moderate, Quality is described as aching (Reports chronic pain in his abdomen), and is localized to the abdomen. Patient started experiencing this month(s) and it has been constant. No relieving factors improve symptom(s), No exacerbating factors reported . Patient notes loss of appetite, nausea/vomiting (Endorses chronic nausea, no vomiting) and weakness (chronic, states it has been worsening over the last several months); denies chest pain, cough, fever/chills, headaches, rash and shortness of breath. Patient did receive the following treatments prior to arrival, none Related Data Home Medications Medication Instructions Recorded Confirmed acetaminophen 650 mg PO PRN PRN 06/24/18 08/27/19 furosemide 20 mg PO DAILY 06/29/19 08/27/19 gabapentin 300 mg PO DAILY 06/29/19 08/27/19 lisinopril 5 mg PO DAILY 06/29/19 08/27/19 ibuprofen [IBU-200] 400 mg PO Q6H PRN 08/27/19 08/27/19 sucralfate [Carafate] 1 gm PO QACHS #120 tab 08/27/19 Previous Rx's Medication Instructions Recorded sucralfate [Carafate] 1 gm PO QACHS #120 tab 08/27/19 Allergies Allergy/AdvReac Type Severity Reaction Status Date / Time No Known Allergies Allergy Unverified 08/27/19 09:02 General DARBY: 3 Review of Systems Constitutional Constitutional: Reports as per HPI, Denies chills, Reports fatigue, Denies fever(s), Denies headache(s) and Reports weakness ENT Ears, Nose, Mouth, and Throat: Denies headache(s) Cardiovascular Cardiovascular: Reports as per HPI, Denies chest pain and Denies dyspnea Respiratory Respiratory: Reports as per HPI, Denies cough and Denies dyspnea Gastrointestinal Gastrointestinal: Reports as per HPI Genitourinary Genitourinary: Denies system reviewed and no additional complaints, except as docu (patient denies any change in urinary habits) Musculoskeletal Musculoskeletal: Reports as per HPI and Denies back pain Integumentary/Breasts Skin/Breast: Reports as per HPI and Denies rash Neurologic Neurologic: Reports as per HPI, Denies headache(s) and Reports weakness Endocrine Endocrine: Reports fatigue PFSH Medical History Anemia (Chronic) History of biliary stent insertion (Acute) HTN (hypertension) (Chronic) Pancreas cancer (Acute) Smoker unmotivated to quit (Acute) Surgical History (Updated 08/27/19 @ 10:32 by Melissa Gonzalez DO) S/P ERCP (Acute) Social History Smoking/Tobacco Use Status: Current every day Tobacco Type: cigarettes Alcohol Intake: former Drug use: Never Do you feel safe at home: Yes Do you feel safe in your relationship?: Yes Exam Const General: cooperative, comfortable, no acute distress and ill appearing chr onically Nutritional Appearance: malnourished and thin Orientation: alert, awake and oriented x3 HENMT Head: normal to inspection Mouth: moist mucous membranes Resp Effort & Inspection: normal respiratory effort, able to speak in complete sentences and no respiratory distress Auscultation: clear to auscultation bilaterally, no rales, no rhonchi and no wheezes Cardio Rate: regular rate Rhythm: regular rhythm Heart Sounds: S1 normal and S2 normal GI Inspection: normal to inspection, no edema, non-distended, no visible herniation and no visible pulsation Palpation: soft, not firm, no guarding, no hepatomegaly, no hepatosplenomegaly, no hernias, mass (right of midline, rounded, approximately 7cm), not rigid and nontender Percussion: normal to percussion Auscultation: normal bowel sounds Back/Spine/Pelvis Back: no CVA tenderness Skin General skin exam: no rashes or lesions noted Trauma: no lacerations or abrasions Neuro General: alert and awake Cognition: normal cognition Speech: speech normal Gait: normal gait Psych Appearance: grossly normal and well kempt Mental Status: mental status grossly normal Speech and Movement: speech and movement normal
--- NOTE | 2019-08-27 10:30 | W.PM.HP.N ---
Date of service: 08/27/19 Time of Service: 10:30 Assessment and Plan Assessment and plan (1) Anemia: Status: Chronic Assessment and plan: Informed consent is obtained for the procedural (explained in simple layman's terms that the pt and/or family could understand) explaining risks vs benefits and alternatives to the procedure and consequences if we do not do the procedure and need/rational for the procedure. Risks include but are not limited to: bleeding, infection, perforation of esophagus, stomach, colon, small intestines, bronchus or trachea, or PTX. This would necessitate emergency surgery to repair the damage w/ possible ostomy; and other associated complications w/ the required surgery. Also complications of anesthesia including aspiration, OH/CVA/. (2) Pancreas cancer: Status: Acute History of Present Illness Consults Consult date: 08/27/19 Requesting physician: Aure Edwards Narrative: pt has pancreatic cancer. [place] sbiliary stent. Has been non compliant w/ treatment. his s/s of obstruction are worsening- to pt decided he wants to pursue traetment. He was found to have a hgb of 6.4 and sent in for tranfusion. He was found to be hem+ on rectal exam. He had a stent exchange in June. He has not had any chemo since June. Because they never called me back Lately he has been feeling worse. He is having chronic epigastric abdominal pain. He vomiting up food. He can eat. He is not vomiting up blood. he is losing wt. Has not noticed blood stools. He is not noticed black tarry stools. His stools have been light and luiz colored. Taking a lot more Motrin than usual because of the abdominal pain. He has no history of ulcers. He is not on stomach meds. He denies chest pain or shortness of breath today he just does not feel good. He has not had a heart attack or stroke. Is a smoker. He is not had chemo since June. Last CAT scan was 10 days ago. Is becoming larger per the CT he had in the last 2 wks. Review of Systems All systems reviewed & are unremarkable except as noted in HPI and below PFSH Medical History Anemia (Chronic) History of biliary stent insertion (Acute) HTN (hypertension) (Chronic) Pancreas cancer (Acute) Smoker unmotivated to quit (Acute) Surgical History (Updated 08/27/19 @ 10:32 by Melissa Gonzalez DO) S/P ERCP (Acute) Social History Smoking/Tobacco Use Status: Current every day Tobacco Type: cigarettes Alcohol Intake: former Drug use: Never Do you feel safe at home: Yes Do you feel safe in your relationship?: Yes Meds Home Medications and Allergies Home Medications Medication Instructions Recorded Confirmed Type acetaminophen 650 mg PO PRN PRN 06/24/18 08/27/19 History furosemide 20 mg PO DAILY 06/29/19 08/27/19 History gabapentin 300 mg PO DAILY 06/29/19 08/27/19 History lisinopril 5 mg PO DAILY 06/29/19 08/27/19 History ibuprofen [IBU-200] 400 mg PO Q6H PRN 08/27/19 08/27/19 History Allergies Allergy/AdvReac Type Severity Reaction Status Date / Time No Known Allergies Allergy Unverified 08/27/19 09:02 Exam HENMT Head: normal to inspection Teeth and gingiva: gingiva abnormal and poor dentition Resp Effort & Inspection: normal respiratory effort and able to speak in complete sentences Auscultation: clear to auscultation bilaterally Cardio Palpation: normal PMI Rate: regular rate GI Inspection: normal to inspection and scaphoid Palpation: soft and tender (mild) in the epigastrum Percussion: normal to percussion Skin Other: open comedomes poorly kempt Extrem General: normal to inspection and full ROM Other: muscle wasting Results Labs Labs: Laboratory Results - last 24 hr 08/27/19 09:05 Patient ABO/Rh O Positive Antibody Screen Negative Crossmatch See Detail Last Vital Signs Temp 36.4 C L 08/27/19 08:58 Pulse 82 08/27/19 08:58 Resp 20 08/27/19 10:17 BP 163/76 H 08/27/19 08:58 Pulse Ox 100 08/27/19 08:58
[2019-08-27 11:17] LABS: INR 1.2 (0.9-1.1); PTT Activated 27.3 sec (21.0-31.4); Prothrombin Time 11.6 sec (9.3-11.0)
[2019-08-27] MEDS: Pantoprazole 40 MG VIAL IVP (13:04)
--- NOTE | 2019-08-27 13:18 | NUR.NOTE ---
Nursing Note: Report given to Ana Maria Baez RN- pt brought to OR w/blood running.
--- NOTE | 2019-08-27 13:35 | STOM_PTH ---
PATIENT: ABHIJIT IRIZARRY LOC: [facility] U#:[id number] AGE/SX: 59/M ROOM: RE08/27/[address]: Melissa Gonzalez : 1960 BED: DIS: 08/27/2019 SPEC #: [id number] RECD: 08/27/19 17:49 STATUS: PARTH REJanette #: [id number] PAT: 08/27/19 13:[address]: Melissa Gonzalez DEPT: Surgical Specimen RECD BY: Suyapa Hdez ENTERED: 08/27/19 17:50 SP TYPE: STOMACH OTHR DR: None Tissues: 1 - STOMACH BIOPSY 2 - ESOPHAGUS BIOPSY Procedures: GROSS AND MICRO LEVEL 4 IMMUNOPEROXIDASE STAIN Comments: [id number]
--- NOTE | 2019-08-27 13:42 | W.PM.ENDDOP ---
Date of service: 08/27/19 Time of Service: 13:42 Endoscopy Report DATE OF PROCEDURE: 08/27/19 PRE-OP DIAGNOSIS: anemia/panc cancer POST-OP DIAGNOSIS: same PROCEDURE: egd and bx SURGEON: Melissa Gonzalez ANESTHESIA: GETA ESTIMATED BLOOD LOSS: 1 PATHOLOGY: other PROCEDURE DESCRIPTION: After informed consent was obtained the patient was take to the procedure room and placed in a supine position. Monitors were applied and a time out was done. The patients name, date of , procedure type, allergies to medications and metal in their body was reviewed. A bite block was placed and the patient was sedated. Once sedated and comfortable the gastroscope was advanced through the oropharynx which was grossly normal into the esophagus. The proximal and mid-esophagus were []. In the distal esophagus there was nl noted. The scope was advanced into the stomach and through the pylorus into the 3rd portion of the duodenum. Duodenum was normal. There is no signs of obstruction. The stent protruding through the. The lobe was visualized. She does have what appears to be a calculus within. There is bile flowing into the duodenum. There is what appears to be tumor protruding from the papilla itself. There is no signs of active or old bleeding. There is no obstruction. There is some mild local irritation around the papilla and that portion of the duodenum, but this is probably local irritation from the stent. There is no signs of ulcer disease. The scope was retracted back into the stomach and biopsies were done to rule out H. pylori. There were no ulcers. The scope was retroflexed. The cardia and fundus were noted to be normal. Biopsies of the body of the stomach and the GE junction. Is done all specimens retrieved. There is no bleeding noted. There is some mild gastritis in a striped fashion in the body of the stomach. No hiatal hernia noted. The scope was retracted back into the esophagus and biopsies were done of the GE junction to rule out Hardy's. The Z line was regular. The GE junction was at 38 cm. The scope was removed and the patient was woken up and taken back to [facility] in stable condition. I think the anemia is from chronic disease, and not from active bleeding. Can go home after transfusion today. We will start him on Carafate. Follow-up with oncology
--- NOTE | 2019-08-27 13:58 | PDOC.DSDIS_ITS ---
Discharge Plan Disposition Patient Disposition: HOME Condition: Improving Discharge Details Chief Complaint: GenMedical Reason For Visit: anemia/EGD Attending Provider: Melissa Gonzalez Primary Care Provider: None,None ED Provider: Aure Edwards Home Meds and New Rx's Prescriptions: New sucralfate [Carafate] 1 gram tablet 1 gm PO QAC Qty: 120 RF: 12 Continued acetaminophen 325 mg Capsule 650 mg PO PRN PRNRF: 0 gabapentin 300 mg Capsule 300 mg PO DAILY RF: 0 lisinopril 5 mg Tablet 5 mg PO DAILY RF: 0 furosemide 20 mg Tablet 20 mg PO DAILY RF: 0 ibuprofen [IBU-200] 200 mg Tablet 400 mg PO Q6H PRNRF: 0 Discharge Instructions Additional Instructions: Findings:mild gastritis do not take ibuprofen on an empty stomach. take w/ food. We are going to start you on a stomach medication called carafate- take this 4x/day. the anemia/low blood count is due to the cancer. There are no ulcers are signs of bleeding. Follow up: F/u oncology at [facility] as previously scheduled. If you DO NOT have an appt scheduled- call in am on Tuesday to schedule: [phone] Please call if you develop: fevers >101.5 Nausea or Vomiting Abdominal pain that is not transient DAY SURGERY UNIT POST COLONOSCOPY INSTRUCTIONS 1. Because there will be medication in your system for the next 24 hours, you may feel a little sleepy. Your coordination will be affected. Therefore: a. Do not drive or operate dangerous equipment for 24 hours. b. Do not drink alcohol beverages for 24 hours (not even beer). c. Plan to go home and rest for the day. 2. Generally there are no restrictions on your activity after a day or so has gone by, but you may feel a bit fatigued for a few days. 3 After you arrive home you may have a light meal and return to a normal diet as you can tolerate it without feeling sick to your stomach. 4. After surgery, you may feel pain or discomfort. This should be only transient, but if it persists please contact your doctor. 5. If there are any questions regarding the findings of your procedure, please feel free to contact your doctor. 6. If you are unable to contact your doctor with a problem, contact the hospital at [phone]. 7. Continue all your regular medications unless directed otherwise. I understand the above instructions and have no questions. Signature of Patient or Responsible Adult Escort Date/Time Name of Responsible Adult Escort Signature of Nurse Date/Time DS: Diagnosis Discharge Diagnosis (1) Anemia: Status: Chronic (2) Pancreas cancer: Status: Acute
== END 2019-08-27 15:32 | disposition home or self-care (01) ==
LOC: ER 11:59 → SUR 13:21
PROVIDERS: Emergency Provider Physician Assistant; Visit Provider Surgery
PROC: 0DJ68ZZ Inspection of Stomach, Via Natural or Artificial Opening Endoscopic (ICD-10-PCS; CPT 43235; principal; 2019-08-27 11:15)
DX: D64.9 Anemia, unspecified (principal); R10.13 Epigastric pain; K31.89 Other diseases of stomach and duodenum; K21.0 Gastro-esophageal reflux disease with esophagitis; C25.0 Malignant neoplasm of head of pancreas; Z96.89 Presence of other specified functional implants; I10 Essential (primary) hypertension; F17.210 Nicotine dependence, cigarettes, uncomplicated
CPT/HCPCS: 43239; 36415; 36430; 86850; 86900; 86901; 86920; 88305; 96374; 99223; 99285; 85610; 85730; 88361; 99284; J2001; J2704; P9016

== ENCOUNTER 2019-08-31 00:56 | Outpatient (CLI) | payer SELFPAY ==
[2019-08-31 09:05] LABS: Abs Immature Grans 0.01 k/cumm (0.0-0.09); Absolute Basophil Count 0.03 k/cumm (0.0-0.2); Absolute Lymphocyte Count 1.47 k/cumm (1.2-3.4); Basophils % 0.4; Eosinophils % 3.6; HCT 30.1 % (40.0-50.0); HGB 9.6 g/dL (13.5-17.5); Immature Grans % 0.1 %; Lymphocytes % 17.5; Mean Corp. HGB Concentration 31.9 g/dL (32.0-36.0); Mean Corpuscular Hemoglobin 27.6 pg (27.0-33.0); Mean Corpuscular Volume 86.5 fL (80-95); Mean Platelet Volume 7.9 fL (8.0-11.0); Monocytes % 8.3; Neutrophils % 70.1; RBC 3.48 m/cumm (4.50-6.00); RBC Distribution Width 15.4 % (11.8-14.1); White Blood Cell Count 8.41 k/cumm (4.4-10.8)
[2019-08-31 09:14] LABS: ALT 17 U/L (16-63); AST 15 U/L (15-37); Alkaline Phosphatase 110 U/L (46-116); Anion Gap 5.6 mmol/L (3-11); BUN 10 mg/dL (7-18); Bilirubin, Total 0.2 mg/dL (0.2-1.0); CO2 28.4 mmol/L (21.0-32.0); CREATININE 0.66 mg/dL (0.70-1.30); Calcium 8.4 mg/dL (8.5-10.1); Chloride 97 mmol/L (98-107); Glucose 110 mg/dL (74-106); Potassium 4.1 mmol/L (3.5-5.1); Sodium 131 mmol/L (136-145); Total Protein 6.8 g/dL (6.4-8.2)
[2019-08-31 09:44] LABS: Platelet Count 426 x1000/uL (130-400)
[2019-08-31 09:45] LABS: Diff Comment Agrees w/ Instrument; RBC Morphology Normal
[2019-09-03 11:48] LABS: CA 19-9 35 U/mL (<35)
[2019-09-04 18:55] LABS: DPYD Predicted Toxicity Risk Normal
== END 2019-08-31 01:16 ==
PROVIDERS: Visit Provider Internal Medicine Hematology & Oncology
DX: C25.0 Malignant neoplasm of head of pancreas (principal); C78.7 Secondary malignant neoplasm of liver and intrahepatic bile duct
CPT/HCPCS: 36415; 80053; 81232; 85025; 86301

== ENCOUNTER 2019-09-14 00:14 | Outpatient (CLI) | payer MEDICAID, SELFPAY ==
[2019-09-14 08:53] LABS: Abs Immature Grans 0.02 k/cumm (0.0-0.09); Absolute Basophil Count 0.03 k/cumm (0.0-0.2); Absolute Eosinophil Count 0.24 k/cumm (0.0-0.7); Absolute Lymphocyte Count 1.07 k/cumm (1.2-3.4); Absolute Neutrophil Count 6.68 k/cumm (1.2-6.7); Basophils % 0.4; Eosinophils % 2.8; Immature Grans % 0.2 %; Lymphocytes % 12.7; Mean Corp. HGB Concentration 30.8 g/dL (32.0-36.0); Mean Corpuscular Hemoglobin 25.6 pg (27.0-33.0); Mean Corpuscular Volume 83.3 fL (80-95); Mean Platelet Volume 7.4 fL (8.0-11.0); Monocytes % 4.7; Neutrophils % 79.2; Platelet Count 624 x1000/uL (130-400); RBC 2.03 m/cumm (4.50-6.00); RBC Distribution Width 16.3 % (11.8-14.1); White Blood Cell Count 8.44 k/cumm (4.4-10.8)
[2019-09-14 09:05] LABS: HGB 5.2 g/dL (13.5-17.5)
[2019-09-14 09:07] LABS: HCT 16.9 % (40.0-50.0)
[2019-09-14 09:09] LABS: ALT 14 U/L (16-63); AST 11 U/L (15-37); Albumin 2.6 g/dL (3.4-5.0); Alkaline Phosphatase 119 U/L (46-116); Anion Gap 6.5 mmol/L (3-11); BUN 6 mg/dL (7-18); Bilirubin, Total 0.3 mg/dL (0.2-1.0); CO2 28.5 mmol/L (21.0-32.0); Calcium 8.6 mg/dL (8.5-10.1); Chloride 97 mmol/L (98-107); Glucose 99 mg/dL (74-106); Potassium 3.8 mmol/L (3.5-5.1); Sodium 132 mmol/L (136-145); Total Protein 6.6 g/dL (6.4-8.2)
[2019-09-14 09:15] LABS: Anisocytosis 1+; Diff Comment RBC Morph Reviewed; Hypochromasia 2+; Microcytosis 1+; Poikilocytes 1+; Polychromasia Present
[2019-09-17 15:05] LABS: CA 19-9 30 U/mL (<35)
== END 2019-09-14 00:34 ==
PROVIDERS: Visit Provider Internal Medicine Hematology & Oncology
DX: C25.0 Malignant neoplasm of head of pancreas (principal)
CPT/HCPCS: 36415; 80053; 85025; 86301

== ENCOUNTER 2019-09-14 09:45 | Emergency (ER) | payer MEDICAID, SELFPAY ==
[2019-09-14] VITALS (11 sets, daily range): BP systolic 104–139; BP diastolic 61–95; PULSE 64–93; RESP 16–18; TEMP 36.3–37; O2SAT 96–100
--- NOTE | 2019-09-14 09:50 | W.ED.GENAD ---
Discharge Plan Disposition Patient Disposition: AGAINST MEDICAL ADVICE Condition: Fair Discharge Details Chief Complaint: GenMedical Clinical Impression: Acute on chronic anemia, Guaiac positive stools, History of pancreatic cancer, Encounter for blood transfusion Primary Care Provider: None,None ED Provider: Janny Werner Home Meds and New Rx's Prescriptions: Continued oxycodone 5 mg Tablet 5 mg PO Q4H PRNRF: 0 acetaminophen 325 mg Capsule 650 mg PO PRN PRNRF: 0 gabapentin 300 mg Capsule 300 mg PO DAILY RF: 0 lisinopril 5 mg Tablet 5 mg PO DAILY RF: 0 furosemide 20 mg Tablet 20 mg PO DAILY RF: 0 ibuprofen [IBU-200] 200 mg Tablet 400 mg PO Q6H PRNRF: 0 sucralfate [Carafate] 1 gram tablet 1 gm PO QACHS Qty: 120 RF: 12 Discharge Instructions Instructions: Anemia (ED) Additional Instructions: You are leaving the hospital AGAINST MEDICAL ADVICE. Your hemoglobin (blood count) is significantly low putting you at risk for or disability. Follow-up with your scheduled appointment with general surgery Dr. Wayne on Tuesday at 1 PM. Go to the hospital lab 1 to 2 hours before your appointment with Dr. Wayne to obtain a repeat blood test to assess your hemoglobin. Follow-up with Dr. Scott next week to determine when your chemotherapy will be rescheduled. Referrals: Dorothea Wayne MD [ [facility] STAFF PHYSICIAN] - Discharge Data Discharge Date/Time-TO BE ENTERED AT DEPARTURE: 09/14/19 15:45 Discharge Physician: Janny Werner Medical Decision Making 1000 -- 59-year-old male with history of pancreatic cancer treated with pancreatic stent and chemotherapy as well as alcoholism and tobacco smoker presents after sent by cancer center for anemia with a hemoglobin of 5.2. Patient was admitted here 3 weeks ago for anemia and had an endoscopy which was negative for any acute bleeding and thought to be due to anemia of chronic disease and he was treated with Carafate. He denies any symptoms. Patient appears pale. Rectal exam notes light brown stool and strongly guaiac positive. Review of records note that patient does not appear to have had a colonoscopy when he was here 2 weeks ago. Patient initially stated he does not want transfusion and does not want to be here and only wants to get his chemotherapy today. He states he has a lot of medical phone calls to make and requests of transfusion can be done next week. Case discussed with Dr. Scott who recommended that patient stay for transfusion and likely admission for colonoscopy. Case discussed with surgery Dr. Wayne who states that it appears that patient did not have a colonoscopy and can follow-up with patient for this next week. An order was placed for repeat hemoglobin for Tuesday and patient will follow-up with surgery in the office at that time to schedule colonoscopy. Okay with plan for 2 units PRBCs. Discussed with infusion center and they are unable to accommodate patient for transfusion today. Will order 2 units of PRBCs here today. 1530 --patient received 2 units PRBCs. Discussed again with patient recommendation for admission for observation and recheck of his hemoglobin with surgery evaluation. Patient is declining to stay at this time. The risks of and disability were explained and patient understands. He demonstrates capacity make decisions. AMA form signed. An appointment was made with surgery Dr. Wayne for 1 PM on Tuesday for evaluation. He was advised to go to the hospital lab on Tuesday prior to evaluation with Dr. Wayne. He was advised to return here with any concerns. Medical Records Medical records reviewed: Yes I reviewed the patient's medical records. Lab Data Lab results reviewed: Yes I reviewed the patient's lab results. Labs: Laboratory Tests Range/Units 09/14/19 09/14/19 10:35 10:35 PT (9.3-11.0) sec 11.7 H INR (0.9-1.1) 1.2 H APTT (21.0-31.4) sec 25.6 Patient ABO/Rh O Positive Antibody Screen Negative Crossmatch See Detail HPI General Mode of arrival: ambulatory. Date/Time Provider Initiated Documentation: 09/14/19 09:46. Limitations to Documentation: no limitations. Information obtained by: patient. HPI Narrative: Patient is a 59-year-old male with a history of pancreatic cancer treated with biliary stent, hypertension, anemia, alcoholism and tobacco smoker presents from the [facility] for further evaluation of his anemia. He had routine labs done prior to his scheduled chemotherapy today and his hemoglobin was noted to be 5.2. Patient was admitted here 2 weeks ago for anemia and had an upper endoscopy. Patient states he does not want to be here at this time and would rather proceed with his scheduled chemotherapy today. He denies any fever, vomiting, hemoptysis, hematemesis, abdominal pain, rectal bleeding, dizziness, chest pain or shortness of breath. Patient states his last alcoholic drink was last week. Related Data Home Medications Medication Instructions Recorded Confirmed acetaminophen 650 mg PO PRN PRN 06/24/18 08/27/19 furosemide 20 mg PO DAILY 06/29/19 08/27/19 gabapentin 300 mg PO DAILY 06/29/19 08/27/19 lisinopril 5 mg PO DAILY 06/29/19 09/14/19 ibuprofen [IBU-200] 400 mg PO Q6H PRN 08/27/19 08/27/19 sucralfate [Carafate] 1 gm PO QACHS #120 tab 08/27/19 09/14/19 oxycodone 5 mg PO Q4H PRN 09/14/19 09/14/19 Previous Rx's Medication Instructions Recorded sucralfate [Carafate] 1 gm PO QACHS #120 tab 08/27/19 Allergies Allergy/AdvReac Type Severity Reaction Status Date / Time No Known Allergies Allergy Unverified 09/14/19 09:52 General DARBY: 3 Review of Systems All systems reviewed & are unremarkable except as noted in HPI and below Constitutional Constitutional: Reports as per HPI, Denies chills and Denies fever(s) Eyes Eyes: Denies blurry vision ENT Ears, Nose, Mouth, and Throat: Denies dizziness, Denies sore throat and Denies throat swelling Cardiovascular Cardiovascular: Denies chest pain and Denies dyspnea Respiratory Respiratory: Denies cough and Denies dyspnea Gastrointestinal Gastrointestinal: Denies abdominal pain, Denies diarrhea and Denies vomiting Genitourinary Genitourinary: Denies hematuria and Denies dysuria Musculoskeletal Musculoskeletal: Denies back pain and Denies numbness Integumentary/Breasts Skin/Breast: Denies lesions and Denies rash Neurologic Neurologic: Denies dizziness, Denies focal weakness and Denies numbness Allergic/Immunologic Allergic/Immunologic: Denies throat swelling [facility] Medical History Anemia (Chronic) History of biliary stent insertion (Acute) HTN (hypertension) (Chronic) Pancreas cancer (Acute) Smoker unmotivated to quit (Acute) Surgical History S/P ERCP (Acute) Social History Smoking/Tobacco Use Status: Current every day Tobacco Type: cigarettes Alcohol Intake: former Drug use: Never Substance use type: does not use Do you feel safe at home: Yes Do you feel safe in your relationship?: Yes Exam Const General: cooperative, no acute distress and ill appearing chronically Orientation: alert, awake and oriented x3 HENMT Head: normal to inspection Ears: hearing grossly normal bilaterally and external ears normal Face and sinus: normal facial exam Teeth and gingiva: poor dentition Eyes General: appearance normal, both eyes and all related structures EOM: EOM intact bilaterally Neck Neck: normal visual inspection and No submandibular swelling Lymphatic: no lymphadenopathy noted Chest Chest: normal inspection of the chest and no tenderness Resp Effort & Inspection: normal respiratory effort and able to speak in complete sentences Auscultation: clear to auscultation bilaterally Cardio Rate: regular rate Rhythm: regular rhythm GI Inspection: normal to inspection Palpation: soft, not firm, not rigid and nontender Auscultation: normal bowel sounds Skin General skin exam: no rashes or lesions noted and pallor Neuro General: alert, awake and oriented x3 Cognition: normal cognition Speech: speech normal Motor: muscle tone normal throughout Sensory Exam: no sensory deficits noted Extrem General: normal to inspection, full ROM, normal capillary refill, no calf tenderness bilaterally and no edema Psych Appearance: grossly normal Mental Status: mental status grossly normal Speech and Movement: speech and movement normal Affect: normal affect
[2019-09-14 11:03] LABS: INR 1.2 (0.9-1.1); PTT Activated 25.6 sec (21.0-31.4); Prothrombin Time 11.7 sec (9.3-11.0)
== END 2019-09-14 15:45 | disposition left against medical advice (07) ==
PROVIDERS: Emergency Provider Physician Assistant
DX: R71.0 Precipitous drop in hematocrit (principal); R19.5 Other fecal abnormalities; D63.8 Anemia in other chronic diseases classified elsewhere; C25.9 Malignant neoplasm of pancreas, unspecified; I10 Essential (primary) hypertension; Z79.899 Other long term (current) drug therapy; Z53.29 Procedure and treatment not carried out because of patient's decision for other reasons; F10.20 Alcohol dependence, uncomplicated
CPT/HCPCS: 36415; 36430; 86850; 86900; 86901; 86920; 99285; 85610; 85730; P9016

== ENCOUNTER 2019-09-17 07:45 | Outpatient (CLI) | payer MEDICAID, SELFPAY ==
[2019-09-17 11:19] LABS: Abs Immature Grans 0.02 k/cumm (0.0-0.09); HCT 25.4 % (40.0-50.0); Mean Corp. HGB Concentration 31.5 g/dL (32.0-36.0); Mean Corpuscular Hemoglobin 26.3 pg (27.0-33.0); Mean Corpuscular Volume 83.6 fL (80-95); Mean Platelet Volume 7.6 fL (8.0-11.0); Platelet Count 560 x1000/uL (130-400); RBC 3.04 m/cumm (4.50-6.00); RBC Distribution Width 17.1 % (11.8-14.1); White Blood Cell Count 9.21 k/cumm (4.4-10.8)
[2019-09-17 12:24] LABS: Absolute Basophil Count 0.09 k/cumm (0.0-0.2); Absolute Eosinophil Count 0.18 k/cumm (0.0-0.7); Absolute Lymphocyte Count 1.29 k/cumm (1.2-3.4); Absolute Monocyte Count 0.28 k/cumm (0.11-0.7); Absolute Neutrophil Count 7.37 k/cumm (1.2-6.7); Diff Comment Manual Differential
[2019-09-17 12:25] LABS: Anisocytosis 2+; Hypochromasia 3+; Macrocytosis 1+; Poikilocytes 1+; Polychromasia Present
== END 2019-09-17 08:05 ==
PROVIDERS: Visit Provider Surgery
DX: D64.9 Anemia, unspecified (principal)
CPT/HCPCS: 36415; 85025

== ENCOUNTER 2019-09-21 01:54 | Outpatient (CLI) | payer MEDICAID, SELFPAY ==
[2019-09-21 09:08] LABS: Abs Immature Grans 0.02 k/cumm (0.0-0.09); HGB 7.4 g/dL (13.5-17.5); Mean Corp. HGB Concentration 30.8 g/dL (32.0-36.0); Mean Corpuscular Hemoglobin 25.5 pg (27.0-33.0); Mean Corpuscular Volume 82.8 fL (80-95); Mean Platelet Volume 8.5 fL (8.0-11.0); Platelet Count 512 x1000/uL (130-400); RBC Distribution Width 17.6 % (11.8-14.1); Reticulocyte 1.7 % (0.5-2.4); White Blood Cell Count 8.78 k/cumm (4.4-10.8)
[2019-09-21 09:24] LABS: ALT 14 U/L (16-63); AST 9 U/L (15-37); Albumin 2.7 g/dL (3.4-5.0); Alkaline Phosphatase 119 U/L (46-116); Anion Gap 6.2 mmol/L (3-11); BUN 4 mg/dL (7-18); Bilirubin, Total 0.3 mg/dL (0.2-1.0); CO2 29.8 mmol/L (21.0-32.0); CREATININE 0.59 mg/dL (0.70-1.30); Calcium 8.6 mg/dL (8.5-10.1); Chloride 96 mmol/L (98-107); Ferritin 82 ng/mL (26-388); Folate 8.5 ng/mL (8.6-20.0); Glucose 118 mg/dL (74-106); Potassium 3.5 mmol/L (3.5-5.1); Sodium 132 mmol/L (136-145); Total Protein 7.2 g/dL (6.4-8.2); Vitamin B12 872 pg/mL (193-986)
[2019-09-21 09:32] LABS: Absolute Eosinophil Count 0.35 k/cumm (0.0-0.7); Absolute Lymphocyte Count 1.05 k/cumm (1.2-3.4); Absolute Neutrophil Count 6.67 k/cumm (1.2-6.7); Anisocytosis 2+; Atypical Lymphocytes % 3; Diff Comment Manual Differential; Hypochromasia 3+
[2019-09-21 09:33] LABS: Poikilocytes 1+; Polychromasia Present
[2019-09-21 10:12] LABS: Iron 9 ug/dL (65-175); Total Iron Binding Capacity 202 ug/dL (250-450); Transferrin Sat 4 % (20-55)
[2019-09-24 09:14] LABS: CA 19-9 27 U/mL (<35)
[2019-09-24 12:12] LABS: Haptoglobin 282 mg/dL (32-197)
== END 2019-09-21 02:14 ==
PROVIDERS: Visit Provider Internal Medicine Hematology & Oncology
DX: C25.0 Malignant neoplasm of head of pancreas (principal); C78.7 Secondary malignant neoplasm of liver and intrahepatic bile duct; D64.9 Anemia, unspecified
CPT/HCPCS: 36415; 80053; 86900; 86901; 82607; 82728; 82746; 83010; 83540; 83550; 85025; 85045; 86301

== ENCOUNTER 2019-09-21 10:30 | Outpatient (RCR) | payer MEDICAID, SELFPAY ==
[2019-09-21] VITALS (11 sets, daily range): BP systolic 106–156; BP diastolic 67–83; PULSE 64–78; RESP 18–20; TEMP 36.6–37.3; O2SAT 98–100
[2019-09-21] MEDS: Normal Saline Flush 10 ML SYR IVP (11:22)
== END 2019-10-09 23:59 | disposition home or self-care (01) ==
LOC: INF 10:30
PROVIDERS: Visit Provider Internal Medicine Hematology & Oncology
DX: C25.9 Malignant neoplasm of pancreas, unspecified (principal); C78.7 Secondary malignant neoplasm of liver and intrahepatic bile duct; D64.9 Anemia, unspecified
CPT/HCPCS: 36415; 36430; 86850; 86900; 86901; 86920; P9016

== ENCOUNTER 2019-09-24 01:14 | Outpatient (CLI) | payer MEDICAID, SELFPAY ==
[2019-09-24 07:59] LABS: Abs Immature Grans 0.04 k/cumm (0.0-0.09); HCT 30.5 % (40.0-50.0); HGB 9.7 g/dL (13.5-17.5); Mean Corp. HGB Concentration 31.8 g/dL (32.0-36.0); Mean Corpuscular Hemoglobin 26.4 pg (27.0-33.0); Mean Corpuscular Volume 83.1 fL (80-95); Mean Platelet Volume 7.9 fL (8.0-11.0); Platelet Count 508 x1000/uL (130-400); RBC 3.67 m/cumm (4.50-6.00); RBC Distribution Width 18.3 % (11.8-14.1); White Blood Cell Count 11.62 k/cumm (4.4-10.8)
[2019-09-24 08:14] LABS: ALT 8 U/L (16-63); AST 13 U/L (15-37); Absolute Basophil Count 0.12 k/cumm (0.0-0.2); Absolute Eosinophil Count 0.35 k/cumm (0.0-0.7); Absolute Lymphocyte Count 1.86 k/cumm (1.2-3.4); Absolute Monocyte Count 0.58 k/cumm (0.11-0.7); Absolute Neutrophil Count 8.72 k/cumm (1.2-6.7); Albumin 2.6 g/dL (3.4-5.0); Alkaline Phosphatase 120 U/L (46-116); Anion Gap 7.3 mmol/L (3-11); Anisocytosis 2+; Atypical Lymphocytes % 2; BUN 5 mg/dL (7-18); Bilirubin, Total 0.4 mg/dL (0.2-1.0); CO2 28.7 mmol/L (21.0-32.0); CREATININE 0.67 mg/dL (0.70-1.30); Calcium 8.6 mg/dL (8.5-10.1); Chloride 95 mmol/L (98-107); Diff Comment Manual Differential; Glucose 117 mg/dL (74-106); Potassium 3.6 mmol/L (3.5-5.1); Sodium 131 mmol/L (136-145); Total Protein 7.5 g/dL (6.4-8.2)
[2019-09-24 08:15] LABS: Hypochromasia 2+; Poikilocytes 1+
[2019-09-26 11:17] LABS: CA 19-9 43 U/mL (<35)
== END 2019-09-24 01:34 ==
PROVIDERS: Visit Provider Internal Medicine Hematology & Oncology
DX: C25.0 Malignant neoplasm of head of pancreas (principal)
CPT/HCPCS: 36415; 80053; 85025; 86301

== ENCOUNTER 2019-09-27 02:19 | Outpatient (CLI) | payer MEDICAID, SELFPAY ==
[2019-09-27 07:48] LABS: Abs Immature Grans 0.01 k/cumm (0.0-0.09); Absolute Basophil Count 0.01 k/cumm (0.0-0.2); Absolute Eosinophil Count 0.08 k/cumm (0.0-0.7); Absolute Lymphocyte Count 0.82 k/cumm (1.2-3.4); Absolute Monocyte Count 0.06 k/cumm (0.11-0.7); Basophils % 0.1; Eosinophils % 0.8; HCT 30.7 % (40.0-50.0); HGB 9.6 g/dL (13.5-17.5); Immature Grans % 0.1 %; Lymphocytes % 8.1; Mean Corp. HGB Concentration 31.3 g/dL (32.0-36.0); Mean Corpuscular Hemoglobin 25.7 pg (27.0-33.0); Mean Corpuscular Volume 82.1 fL (80-95); Mean Platelet Volume 8.1 fL (8.0-11.0); Monocytes % 0.6; Neutrophils % 90.3; Platelet Count 510 x1000/uL (130-400); RBC 3.74 m/cumm (4.50-6.00); RBC Distribution Width 18.7 % (11.8-14.1); White Blood Cell Count 10.08 k/cumm (4.4-10.8)
[2019-09-27 08:23] LABS: ALT 24 U/L (16-63); AST 29 U/L (15-37); Albumin 2.6 g/dL (3.4-5.0); Alkaline Phosphatase 119 U/L (46-116); Anion Gap 5.8 mmol/L (3-11); BUN 6 mg/dL (7-18); Bilirubin, Total 0.7 mg/dL (0.2-1.0); CO2 28.2 mmol/L (21.0-32.0); CREATININE 0.69 mg/dL (0.70-1.30); Calcium 8.7 mg/dL (8.5-10.1); Chloride 96 mmol/L (98-107); Glucose 107 mg/dL (74-106); Potassium 3.8 mmol/L (3.5-5.1); Sodium 130 mmol/L (136-145); Total Protein 7.5 g/dL (6.4-8.2)
[2019-09-28 09:04] LABS: CA 19-9 45 U/mL (<35)
== END 2019-09-27 02:39 ==
PROVIDERS: Visit Provider Internal Medicine Hematology & Oncology
DX: C25.0 Malignant neoplasm of head of pancreas (principal); C78.7 Secondary malignant neoplasm of liver and intrahepatic bile duct; D64.9 Anemia, unspecified
CPT/HCPCS: 36415; 80053; 86900; 86901; 85025; 86301

== ENCOUNTER 2019-10-01 07:21 | Outpatient (CLI) | payer MEDICAID, SELFPAY ==
[2019-10-01 07:50] LABS: Abs Immature Grans 0.02 k/cumm (0.0-0.09); Absolute Basophil Count 0.01 k/cumm (0.0-0.2); Absolute Lymphocyte Count 1.07 k/cumm (1.2-3.4); Absolute Monocyte Count 1.01 k/cumm (0.11-0.7); Absolute Neutrophil Count 6.76 k/cumm (1.2-6.7); Basophils % 0.1; Eosinophils % 1.1; HCT 28.8 % (40.0-50.0); HGB 9.2 g/dL (13.5-17.5); Immature Grans % 0.2 %; Lymphocytes % 11.9; Mean Corp. HGB Concentration 31.9 g/dL (32.0-36.0); Mean Corpuscular Hemoglobin 25.9 pg (27.0-33.0); Mean Corpuscular Volume 81.1 fL (80-95); Monocytes % 11.3; Neutrophils % 75.4; Platelet Count 328 x1000/uL (130-400); RBC 3.55 m/cumm (4.50-6.00); RBC Distribution Width 19.6 % (11.8-14.1); White Blood Cell Count 8.97 k/cumm (4.4-10.8)
[2019-10-01 08:16] LABS: ALT 23 U/L (16-63); AST 17 U/L (15-37); Albumin 2.5 g/dL (3.4-5.0); Alkaline Phosphatase 122 U/L (46-116); BUN 6 mg/dL (7-18); Bilirubin, Total 0.4 mg/dL (0.2-1.0); CREATININE 0.65 mg/dL (0.70-1.30); Calcium 8.9 mg/dL (8.5-10.1); Chloride 94 mmol/L (98-107); Glucose 108 mg/dL (74-106); Potassium 3.5 mmol/L (3.5-5.1); Sodium 130 mmol/L (136-145); Total Protein 7.6 g/dL (6.4-8.2)
[2019-10-03 09:58] LABS: CA 19-9 35 U/mL (<35)
== END 2019-10-01 07:41 ==
PROVIDERS: Visit Provider Internal Medicine Hematology & Oncology
DX: D64.9 Anemia, unspecified (principal); C25.0 Malignant neoplasm of head of pancreas; C78.7 Secondary malignant neoplasm of liver and intrahepatic bile duct
CPT/HCPCS: 36415; 80053; 86900; 86901; 85025; 86301

== ENCOUNTER 2019-10-08 02:24 | Outpatient (CLI) | payer MEDICAID, SELFPAY ==
[2019-10-08 08:00] LABS: Abs Immature Grans 0.01 k/cumm (0.0-0.09); Absolute Basophil Count 0.02 k/cumm (0.0-0.2); Absolute Eosinophil Count 0.18 k/cumm (0.0-0.7); Absolute Lymphocyte Count 1.25 k/cumm (1.2-3.4); Absolute Monocyte Count 0.86 k/cumm (0.11-0.7); Absolute Neutrophil Count 7.48 k/cumm (1.2-6.7); Basophils % 0.2; Eosinophils % 1.8; HCT 27.1 % (40.0-50.0); HGB 8.7 g/dL (13.5-17.5); Immature Grans % 0.1 %; Lymphocytes % 12.8; Mean Corp. HGB Concentration 32.1 g/dL (32.0-36.0); Mean Corpuscular Hemoglobin 25.7 pg (27.0-33.0); Mean Corpuscular Volume 80.2 fL (80-95); Monocytes % 8.8; Neutrophils % 76.3; RBC 3.38 m/cumm (4.50-6.00); RBC Distribution Width 20.2 % (11.8-14.1)
[2019-10-08 08:16] LABS: ALT 17 U/L (16-63); AST 14 U/L (15-37); Albumin 2.7 g/dL (3.4-5.0); Alkaline Phosphatase 145 U/L (46-116); Anion Gap 5.4 mmol/L (3-11); BUN 6 mg/dL (7-18); Bilirubin, Total 0.3 mg/dL (0.2-1.0); CO2 29.6 mmol/L (21.0-32.0); CREATININE 0.72 mg/dL (0.70-1.30); Calcium 8.9 mg/dL (8.5-10.1); Chloride 94 mmol/L (98-107); Glucose 124 mg/dL (74-106); Potassium 3.8 mmol/L (3.5-5.1); Sodium 129 mmol/L (136-145)
[2019-10-08 08:28] LABS: Platelet Count 647 x1000/uL (130-400)
[2019-10-08 08:29] LABS: Anisocytosis 2+; Diff Comment Diff Reviewed; Hypochromasia 3+
[2019-10-08 08:30] LABS: Poikilocytes 2+
[2019-10-10 11:14] LABS: CA 19-9 36 U/mL (<35)
== END 2019-10-08 02:44 ==
PROVIDERS: Visit Provider Internal Medicine Hematology & Oncology
DX: C25.0 Malignant neoplasm of head of pancreas (principal); C78.7 Secondary malignant neoplasm of liver and intrahepatic bile duct; D64.9 Anemia, unspecified
CPT/HCPCS: 36415; 80053; 86900; 86901; 85025; 86301

== ENCOUNTER 2019-10-19 01:24 | Outpatient (CLI) | payer MEDICAID, SELFPAY | END 2019-10-19 01:44 | PROVIDERS: Visit Provider Internal Medicine Hematology & Oncology | DX: C25.0 Malignant neoplasm of head of pancreas (principal); C78.7 Secondary malignant neoplasm of liver and intrahepatic bile duct; D64.9 Anemia, unspecified | CPT/HCPCS: 36415; 80053; 86900; 86901; 85025; 86301 ==

== ENCOUNTER 2019-10-25 07:37 | Outpatient (CLI) | payer MEDICAID, SELFPAY | END 2019-10-25 07:57 | PROVIDERS: PCP Family Medicine; Visit Provider Internal Medicine Hematology & Oncology | DX: C25.0 Malignant neoplasm of head of pancreas (principal); C78.7 Secondary malignant neoplasm of liver and intrahepatic bile duct; D64.9 Anemia, unspecified | CPT/HCPCS: 36415; 80053; 86850; 86900; 86901; 86920; 85025; 86301 ==

== ENCOUNTER 2019-11-08 01:00 | Outpatient (RCR) | payer MEDICAID, SELFPAY ==
[2019-10-19] VITALS (10 sets, daily range): BP systolic 96–123; BP diastolic 59–74; PULSE 62–96; RESP 18–19; TEMP 36.6–37; O2SAT 97–100
[2019-10-19 07:22] LABS: HCT 23.9 % (40.0-50.0); HGB 7.8 g/dL (13.5-17.5); Mean Corp. HGB Concentration 32.6 g/dL (32.0-36.0); Mean Corpuscular Hemoglobin 25.4 pg (27.0-33.0); Mean Corpuscular Volume 77.9 fL (80-95); Mean Platelet Volume 8.2 fL (8.0-11.0); Platelet Count 505 x1000/uL (130-400); RBC 3.07 m/cumm (4.50-6.00); RBC Distribution Width 20.7 % (11.8-14.1); White Blood Cell Count 11.27 k/cumm (4.4-10.8)
[2019-10-19 07:37] LABS: ALT 17 U/L (16-63); AST 11 U/L (15-37); Albumin 2.6 g/dL (3.4-5.0); Alkaline Phosphatase 158 U/L (46-116); Anion Gap 5.9 mmol/L (3-11); BUN 8 mg/dL (7-18); Bilirubin, Total 0.3 mg/dL (0.2-1.0); CO2 29.1 mmol/L (21.0-32.0); CREATININE 0.64 mg/dL (0.70-1.30); Calcium 8.9 mg/dL (8.5-10.1); Chloride 94 mmol/L (98-107); Glucose 121 mg/dL (74-106); Potassium 3.8 mmol/L (3.5-5.1); Sodium 129 mmol/L (136-145); Total Protein 7.6 g/dL (6.4-8.2)
[2019-10-19 07:57] LABS: Absolute Lymphocyte Count 1.24 k/cumm (1.2-3.4); Absolute Monocyte Count 0.11 k/cumm (0.11-0.7); Atypical Lymphocytes % 4
[2019-10-19 07:58] LABS: Anisocytosis 1+; Basophilic Stippling Present; Diff Comment Manual Differential; Hypochromasia 2+; Microcytosis 1+; Poikilocytes 1+
[2019-10-19 09:39] LABS: Iron 11 ug/dL (65-175); Total Iron Binding Capacity 192 ug/dL (250-450); Transferrin Sat 6 % (20-55)
[2019-10-19 09:53] LABS: Ferritin 193 ng/mL (26-388)
[2019-10-19] MEDS: Normal Saline Flush 10 ML SYR IVP (12:01)
[2019-10-22 10:40] LABS: CA 19-9 34 U/mL (<35)
[2019-10-25] VITALS (7 sets, daily range): BP systolic 103–117; BP diastolic 62–71; PULSE 85–97; RESP 18–19; TEMP 36.4–37.1; O2SAT 99–100
[2019-10-25 07:54] LABS: Abs Immature Grans 0.03 k/cumm (0.0-0.09); Absolute Basophil Count 0.01 k/cumm (0.0-0.2); Absolute Neutrophil Count 10.96 k/cumm (1.2-6.7); Basophils % 0.1; Eosinophils % 1.3; HCT 24.3 % (40.0-50.0); HGB 7.6 g/dL (13.5-17.5); Immature Grans % 0.3 %; Lymphocytes % 5.6; Mean Corp. HGB Concentration 31.3 g/dL (32.0-36.0); Mean Corpuscular Hemoglobin 24.2 pg (27.0-33.0); Mean Corpuscular Volume 77.4 fL (80-95); Mean Platelet Volume 8.1 fL (8.0-11.0); Monocytes % 0.3; Neutrophils % 92.4; RBC 3.14 m/cumm (4.50-6.00); RBC Distribution Width 20.4 % (11.8-14.1); White Blood Cell Count 11.86 k/cumm (4.4-10.8)
[2019-10-25 08:08] LABS: ALT 27 U/L (16-63); AST 21 U/L (15-37); Albumin 2.4 g/dL (3.4-5.0); Alkaline Phosphatase 275 U/L (46-116); Anion Gap 7.2 mmol/L (3-11); BUN 7 mg/dL (7-18); Bilirubin, Total 0.6 mg/dL (0.2-1.0); CO2 28.8 mmol/L (21.0-32.0); CREATININE 0.67 mg/dL (0.70-1.30); Calcium 8.8 mg/dL (8.5-10.1); Chloride 94 mmol/L (98-107); Glucose 132 mg/dL (74-106); Potassium 3.6 mmol/L (3.5-5.1); Sodium 130 mmol/L (136-145); Total Protein 7.4 g/dL (6.4-8.2)
[2019-10-25 08:27] LABS: Absolute Eosinophil Count 0.15 k/cumm (0.0-0.7); Absolute Lymphocyte Count 0.66 k/cumm (1.2-3.4); Absolute Monocyte Count 0.04 k/cumm (0.11-0.7)
[2019-10-25 08:30] LABS: Anisocytosis 1+; Diff Comment Diff Reviewed
[2019-10-25 08:31] LABS: Hypochromasia 1+; Microcytosis 1+
[2019-10-25 08:33] LABS: Poikilocytes 1+
[2019-10-25 08:34] LABS: Platelet Count 681 x1000/uL (130-400)
[2019-10-25] MEDS: Normal Saline Flush 10 ML SYR IVP (11:40)
[2019-10-26 13:58] LABS: CA 19-9 37 U/mL (<35)
[2019-11-01] VITALS (7 sets, daily range): BP systolic 110–122; BP diastolic 67–75; PULSE 66–84; RESP 18–19; TEMP 36.3–36.7; O2SAT 99–100
[2019-11-01 08:31] LABS: Abs Immature Grans 0.03 k/cumm (0.0-0.09); Absolute Basophil Count 0.02 k/cumm (0.0-0.2); Absolute Eosinophil Count 0.31 k/cumm (0.0-0.7); Absolute Lymphocyte Count 1.13 k/cumm (1.2-3.4); Absolute Monocyte Count 1.17 k/cumm (0.11-0.7); Absolute Neutrophil Count 9.36 k/cumm (1.2-6.7); Basophils % 0.2; Eosinophils % 2.6; HCT 24.6 % (40.0-50.0); HGB 7.8 g/dL (13.5-17.5); Immature Grans % 0.2 %; Lymphocytes % 9.4; Mean Corp. HGB Concentration 31.7 g/dL (32.0-36.0); Mean Corpuscular Hemoglobin 24.9 pg (27.0-33.0); Mean Corpuscular Volume 78.6 fL (80-95); Mean Platelet Volume 8.8 fL (8.0-11.0); Monocytes % 9.7; Neutrophils % 77.9; Platelet Count 516 x1000/uL (130-400); RBC 3.13 m/cumm (4.50-6.00); RBC Distribution Width 21.5 % (11.8-14.1); White Blood Cell Count 12.02 k/cumm (4.4-10.8)
[2019-11-01 08:45] LABS: ALT 15 U/L (16-63); AST 11 U/L (15-37); Albumin 2.2 g/dL (3.4-5.0); Alkaline Phosphatase 182 U/L (46-116); Anion Gap 4.7 mmol/L (3-11); BUN 4 mg/dL (7-18); Bilirubin, Total 0.3 mg/dL (0.2-1.0); CO2 30.3 mmol/L (21.0-32.0); CREATININE 0.58 mg/dL (0.70-1.30); Calcium 8.4 mg/dL (8.5-10.1); Chloride 94 mmol/L (98-107); Glucose 108 mg/dL (74-106); Potassium 3.7 mmol/L (3.5-5.1); Sodium 129 mmol/L (136-145); Total Protein 6.9 g/dL (6.4-8.2)
[2019-11-01] MEDS: Normal Saline Flush 10 ML SYR IVP (11:23)
[2019-11-02 10:08] LABS: CA 19-9 35 U/mL (<35)
[2019-11-08 08:29] LABS: Abs Immature Grans 0.04 k/cumm (0.0-0.09); Absolute Basophil Count 0.02 k/cumm (0.0-0.2); Absolute Eosinophil Count 0.06 k/cumm (0.0-0.7); Absolute Lymphocyte Count 0.76 k/cumm (1.2-3.4); Absolute Monocyte Count 0.96 k/cumm (0.11-0.7); Absolute Neutrophil Count 7.23 k/cumm (1.2-6.7); Basophils % 0.2; Eosinophils % 0.7; HCT 28.3 % (40.0-50.0); HGB 8.9 g/dL (13.5-17.5); Immature Grans % 0.4 %; Lymphocytes % 8.4; Mean Corp. HGB Concentration 31.4 g/dL (32.0-36.0); Mean Corpuscular Hemoglobin 24.5 pg (27.0-33.0); Mean Corpuscular Volume 77.7 fL (80-95); Mean Platelet Volume 8.9 fL (8.0-11.0); Monocytes % 10.6; Neutrophils % 79.7; Platelet Count 443 x1000/uL (130-400); RBC 3.64 m/cumm (4.50-6.00); RBC Distribution Width 21.8 % (11.8-14.1); White Blood Cell Count 9.07 k/cumm (4.4-10.8)
[2019-11-08 08:45] LABS: ALT 31 U/L (16-63); AST 19 U/L (15-37); Albumin 2.3 g/dL (3.4-5.0); Alkaline Phosphatase 194 U/L (46-116); Anion Gap 4.2 mmol/L (3-11); BUN 4 mg/dL (7-18); Bilirubin, Total 0.5 mg/dL (0.2-1.0); CO2 29.8 mmol/L (21.0-32.0); CREATININE 0.61 mg/dL (0.70-1.30); Calcium 8.7 mg/dL (8.5-10.1); Chloride 94 mmol/L (98-107); Glucose 107 mg/dL (74-106); Potassium 3.6 mmol/L (3.5-5.1); Sodium 128 mmol/L (136-145); Total Protein 7.3 g/dL (6.4-8.2)
[2019-11-08 08:50] LABS: Anisocytosis 2+; Diff Comment RBC Morph Reviewed; Hypochromasia 2+; Microcytosis 1+
[2019-11-08 08:51] LABS: Poikilocytes 1+
[2019-11-09 11:01] LABS: CA 19-9 36 U/mL (<35)
== END 2019-11-08 23:59 | disposition home or self-care (01) ==
LOC: INF 01:00
PROVIDERS: Visit Provider Internal Medicine Hematology & Oncology
DX: D64.9 Anemia, unspecified (principal); C25.9 Malignant neoplasm of pancreas, unspecified; C78.7 Secondary malignant neoplasm of liver and intrahepatic bile duct; Z45.2 Encounter for adjustment and management of vascular access device
CPT/HCPCS: 36415; 36430; 80053; 86850; 86900; 86901; 86920; 82728; 83540; 83550; 85025; 86301; P9016

== ENCOUNTER 2019-12-05 07:30 | Outpatient (CLI) | payer MEDICAID, SELFPAY ==
--- NOTE | 2019-12-05 | DI.CT_ITS ---
EXAM: CT CHEST/ABD/PEL W CLINICAL HISTORY: PANCREATIC CA METASTASIZED TO LIVER, C25.9,C78.7. TECHNIQUE: Imaging Protocol: Axial computed tomography images with coronal and sagittal reformatted images were created and reviewed CONTRAST MATERIAL: Intravenous: Omnipaque 350 Contrast volume:100 ml Oral: yes / COMPARISON: CT CT CHEST/ABD/PEL W from 08/27/2019 FINDINGS: CHEST: Thyroid: Tracheobronchial tree: Patent where visualized. Mediastinum and Carleen: No dominant adenopathy or fluid collection. Pulmonary parenchyma: No consolidation. There has been apparent decrease of the previously noted rig ht lower lobe nodule, now what measuring 5 x 3 millimeters. Pleura: No effusion or pneumothorax. Lymph nodes: Within normal limits. Aorta: Ascending aorta measures 4.3 cm.. Heart: Mildly enlarged left ventricle. Coronary artery calcifications. Bones: Stable mild compression fracture of T6. No destructive bony lesions. ABDOMEN: Liver: There are now innumerable metastatic lesions throughout the liver. One of the larger lesions i s is located superiorly measuring 3 cm. There is an inferior lesion measuring 2.6 cm. Gallbladder and biliary tract: A stent is again noted in the common bile duct. Biliary air is seen. T here is contrast in the gallbladder, likely refluxed from the small bowel.. Pancreas: There has been marked interval increase in size of the previously noted pancreatic mass, no w measuring 7.1 by 6.2 by 7.6 cm. There is increasing dilatation of the pancreatic duct. No portal ve in thrombosis is seen. There is some attenuation of the at the cristin is splenic confluence. Spleen: N ormal. Kidneys: Normal size, contour and axis. No radiodense stones or obstructive uropathy. No masses seen. Adrenal glands: No masses seen. Aorta: Abdominal portion non-dilated. Sclerotic changes with heavy calcification. Lymph nodes: A 2.5 centimeter lymph node is now seen anterior to the main portal vein. Are multiple e nlarged para-aortic lymph nodes, the largest at the level of the left renal artery measuring 3.2 x 1. 9 cm. Multiple other smaller para-aortic nodes are seen. PELVIS: Bladder: Symmetric distention, mild wall thickening. Bowel: Increased stool is seen throughout the colon. No obstruction or bowel wall thickening. Peritoneal cavity: Ascites and body wall edema is now seen. Bones: Degenerative changes. No lytic or blastic lesions.. Reproductive organs: Within normal limits. IMPRESSION: Significant interval increase in size and number of metastatic lesions in the liver. . Increased si ze of pancreatic mass. Increased para-aortic adenopathy. RADIATION DOSE DELIVERED: 992.48mGy.cm Total DLP DATA REPOSITORY: All CT scans at this facility are submitted to the National Radiology Data Registry (NRDR) Dose Index Registry (DIR) with the [employer] ([employer]). RADIATION OPTIMIZATION: All CT scans at this facility use at least one of these dose optimization te chniques: automated exposure control; mA and/or kV adjustment per patient size (includes targeted exa ms where dose is matched to clinical indication); or iterative reconstruction.
[2019-12-05] MEDS: Omnipaque 350 MG/ML 100 ML BTL IJ (14:29)
[2019-12-05] MEDS: Omnipaque 350 MG/ML 50 ML BTL PO (14:30)
[2019-12-05] MEDS: Normal Saline - Diluent 50 ML VIAL IV (14:30)
== END 2019-12-05 07:50 ==
PROVIDERS: Visit Provider Nurse Practitioner Adult Health
DX: C25.9 Malignant neoplasm of pancreas, unspecified (principal); C78.7 Secondary malignant neoplasm of liver and intrahepatic bile duct; Z12.89 Encounter for screening for malignant neoplasm of other sites; R59.0 Localized enlarged lymph nodes; R18.8 Other ascites
CPT/HCPCS: 74177; 71260; J3490; Q9967

== ENCOUNTER 2019-12-07 02:52 | Outpatient (RCR) | payer MEDICAID, SELFPAY ==
[2019-11-15 08:20] LABS: Abs Immature Grans 0.05 k/cumm (0.0-0.09); HCT 26.8 % (40.0-50.0); HGB 8.7 g/dL (13.5-17.5); Mean Corp. HGB Concentration 32.5 g/dL (32.0-36.0); Mean Corpuscular Hemoglobin 24.9 pg (27.0-33.0); Mean Corpuscular Volume 76.8 fL (80-95); Mean Platelet Volume 8.3 fL (8.0-11.0); RBC 3.49 m/cumm (4.50-6.00); RBC Distribution Width 21.9 % (11.8-14.1); White Blood Cell Count 13.93 k/cumm (4.4-10.8)
[2019-11-15] MEDS: Normal Saline Flush 10 ML SYR 20 ML IVP (08:23)
[2019-11-15 08:36] LABS: Absolute Eosinophil Count 0.42 k/cumm (0.0-0.7); Absolute Lymphocyte Count 1.81 k/cumm (1.2-3.4); Absolute Monocyte Count 1.25 k/cumm (0.11-0.7); Absolute Neutrophil Count 10.45 k/cumm (1.2-6.7); Atypical Lymphocytes % 1; Platelet Count 692 x1000/uL (130-400)
[2019-11-15 08:37] LABS: Anisocytosis 3+; Diff Comment Manual Differential; Hypochromasia 3+; Microcytosis 3+; Poikilocytes 3+
[2019-11-15 09:23] LABS: ALT 14 U/L (16-63); AST 12 U/L (15-37); Albumin 2.2 g/dL (3.4-5.0); Alkaline Phosphatase 194 U/L (46-116); Anion Gap 7.9 mmol/L (3-11); BUN 4 mg/dL (7-18); Bilirubin, Total 0.3 mg/dL (0.2-1.0); CO2 28.1 mmol/L (21.0-32.0); CREATININE 0.58 mg/dL (0.70-1.30); Calcium 8.3 mg/dL (8.5-10.1); Chloride 95 mmol/L (98-107); Glucose 110 mg/dL (74-106); Potassium 3.5 mmol/L (3.5-5.1); Sodium 131 mmol/L (136-145); Total Protein 6.8 g/dL (6.4-8.2)
[2019-11-15 11:04] LABS: Ferritin 361 ng/mL (26-388)
[2019-11-16 09:46] LABS: CA 19-9 45 U/mL (<35)
[2019-11-22] VITALS (8 sets, daily range): BP systolic 108–124; BP diastolic 64–78; PULSE 70–80; RESP 18–19; TEMP 36–37.1; O2SAT 96–99
[2019-11-22 08:16] LABS: Abs Immature Grans 0.04 k/cumm (0.0-0.09); Absolute Basophil Count 0.01 k/cumm (0.0-0.2); Absolute Lymphocyte Count 1.11 k/cumm (1.2-3.4); Absolute Monocyte Count 1.21 k/cumm (0.11-0.7); Basophils % 0.1; Eosinophils % 0.9; HCT 22.8 % (40.0-50.0); HGB 7.2 g/dL (13.5-17.5); Immature Grans % 0.4 %; Lymphocytes % 9.8; Mean Corp. HGB Concentration 31.6 g/dL (32.0-36.0); Mean Platelet Volume 8.4 fL (8.0-11.0); Monocytes % 10.6; Neutrophils % 78.2; Platelet Count 334 x1000/uL (130-400); RBC Distribution Width 21.8 % (11.8-14.1); White Blood Cell Count 11.37 k/cumm (4.4-10.8)
[2019-11-22 08:23] LABS: Absolute Neutrophil Count 8.89 k/cumm (1.2-6.7)
[2019-11-22 08:36] LABS: Anisocytosis 3+; Diff Comment RBC Morph Reviewed
[2019-11-22 08:37] LABS: Hypochromasia 2+; Microcytosis 2+
[2019-11-22 08:38] LABS: Poikilocytes 2+
[2019-11-22] MEDS: Normal Saline Flush 10 ML SYR 20 ML IVP (11:29)
[2019-11-29 08:09] VITALS: BP 122/78; PULSE 77; RESP 18; TEMP 36.7; O2SAT 99
[2019-11-29 08:19] LABS: Abs Immature Grans 0.05 k/cumm (0.0-0.09); Absolute Basophil Count 0.02 k/cumm (0.0-0.2); Basophils % 0.1; Eosinophils % 2.5; HCT 30.5 % (40.0-50.0); HGB 9.6 g/dL (13.5-17.5); Immature Grans % 0.3 %; Mean Corp. HGB Concentration 31.5 g/dL (32.0-36.0); Mean Corpuscular Hemoglobin 24.7 pg (27.0-33.0); Mean Corpuscular Volume 78.4 fL (80-95); Mean Platelet Volume 8.9 fL (8.0-11.0); Monocytes % 9.8; Neutrophils % 78.3; RBC 3.89 m/cumm (4.50-6.00); RBC Distribution Width 23.8 % (11.8-14.1); White Blood Cell Count 17.83 k/cumm (4.4-10.8)
[2019-11-29 08:23] LABS: Absolute Eosinophil Count 0.45 k/cumm (0.0-0.7); Absolute Monocyte Count 1.75 k/cumm (0.11-0.7); Absolute Neutrophil Count 13.96 k/cumm (1.2-6.7)
[2019-11-29 08:44] LABS: ALT 9 U/L (16-63); AST 10 U/L (15-37); Alkaline Phosphatase 156 U/L (46-116); Anion Gap 3.7 mmol/L (3-11); BUN 3 mg/dL (7-18); Bilirubin, Total 0.7 mg/dL (0.2-1.0); CO2 30.3 mmol/L (21.0-32.0); Calcium 8.3 mg/dL (8.5-10.1); Chloride 95 mmol/L (98-107); Glucose 108 mg/dL (74-106); Potassium 3.3 mmol/L (3.5-5.1); Sodium 129 mmol/L (136-145); Total Protein 7.1 g/dL (6.4-8.2)
[2019-11-29 08:57] LABS: Diff Comment Agrees w/ Instrument
[2019-11-29 08:58] LABS: Anisocytosis 3+; Hypochromasia 1+; Macrocytosis 1+; Microcytosis 1+; Polychromasia Present
[2019-11-29 08:59] LABS: Platelet Count 582 x1000/uL (130-400)
[2019-12-07 07:36] LABS: Abs Immature Grans 0.07 k/cumm (0.0-0.09); Absolute Lymphocyte Count 1.08 k/cumm (1.2-3.4); Absolute Monocyte Count 1.37 k/cumm (0.11-0.7); Absolute Neutrophil Count 13.61 k/cumm (1.2-6.7); Basophils % 0.1; Eosinophils % 1.3; HGB 8.6 g/dL (13.5-17.5); Immature Grans % 0.4 %; Lymphocytes % 6.6; Mean Corp. HGB Concentration 31.9 g/dL (32.0-36.0); Mean Corpuscular Hemoglobin 24.6 pg (27.0-33.0); Mean Corpuscular Volume 77.4 fL (80-95); Mean Platelet Volume 9.3 fL (8.0-11.0); Monocytes % 8.4; Neutrophils % 83.2; RBC 3.49 m/cumm (4.50-6.00); White Blood Cell Count 16.36 k/cumm (4.4-10.8)
[2019-12-07 07:40] LABS: Absolute Basophil Count 0.02 k/cumm (0.0-0.2); Absolute Eosinophil Count 0.21 k/cumm (0.0-0.7)
[2019-12-07 07:48] LABS: ALT 14 U/L (16-63); AST 12 U/L (15-37); Albumin 1.9 g/dL (3.4-5.0); Alkaline Phosphatase 138 U/L (46-116); Anion Gap 2.8 mmol/L (3-11); BUN 2 mg/dL (7-18); Bilirubin, Total 0.6 mg/dL (0.2-1.0); CO2 30.2 mmol/L (21.0-32.0); CREATININE 0.62 mg/dL (0.70-1.30); Calcium 8.3 mg/dL (8.5-10.1); Chloride 96 mmol/L (98-107); Glucose 131 mg/dL (74-106); Potassium 3.2 mmol/L (3.5-5.1); Sodium 129 mmol/L (136-145); Total Protein 6.6 g/dL (6.4-8.2)
[2019-12-07 07:57] LABS: Platelet Count 299 x1000/uL (130-400)
[2019-12-07 07:59] LABS: Diff Comment RBC Morph Reviewed
[2019-12-07 08:00] LABS: Anisocytosis 2+; Macrocytosis 1+; Microcytosis 1+; Polychromasia Present
[2019-12-10 10:52] LABS: CA 19-9 24 U/mL (<35)
== END 2019-12-09 23:59 | disposition home or self-care (01) ==
LOC: INF 02:52
PROVIDERS: PCP Family Medicine; Visit Provider Internal Medicine Hematology & Oncology
DX: C25.9 Malignant neoplasm of pancreas, unspecified (principal); C78.7 Secondary malignant neoplasm of liver and intrahepatic bile duct; D64.9 Anemia, unspecified
CPT/HCPCS: 36415; 36430; 80053; 86850; 86900; 86901; 86920; 82728; 85025; 86301; P9016

== ENCOUNTER 2020-01-03 02:02 | Outpatient (RCR) | payer MEDICAID, SELFPAY ==
[2019-12-13] MEDS: Normal Saline Flush 10 ML SYR IVP (08:19)
[2019-12-13 08:38] LABS: HCT 29.7 % (40.0-50.0); HGB 9.3 g/dL (13.5-17.5); Mean Corp. HGB Concentration 31.3 g/dL (32.0-36.0); Mean Corpuscular Hemoglobin 24.6 pg (27.0-33.0); Mean Corpuscular Volume 78.6 fL (80-95); Mean Platelet Volume 9.2 fL (8.0-11.0); RBC 3.78 m/cumm (4.50-6.00); RBC Distribution Width 23.4 % (11.8-14.1); White Blood Cell Count 18.55 k/cumm (4.4-10.8)
[2019-12-13 09:01] LABS: Absolute Eosinophil Count 0.56 k/cumm (0.0-0.7); Absolute Lymphocyte Count 0.74 k/cumm (1.2-3.4); Absolute Monocyte Count 0.93 k/cumm (0.11-0.7); Absolute Neutrophil Count 16.32 k/cumm (1.2-6.7); Anisocytosis 3+; Atypical Lymphocytes % 1; Diff Comment Manual Differential; Hypochromasia 3+; Microcytosis 2+; Platelet Count 531 x1000/uL (130-400); Polychromasia Present
[2019-12-13 09:02] LABS: Poikilocytes 2+
[2019-12-21 08:48] LABS: Abs Immature Grans 0.14 k/cumm (0.0-0.09); HCT 31.7 % (40.0-50.0); Mean Corp. HGB Concentration 31.5 g/dL (32.0-36.0); Mean Corpuscular Hemoglobin 24.9 pg (27.0-33.0); Mean Corpuscular Volume 78.9 fL (80-95); Mean Platelet Volume 8.8 fL (8.0-11.0); Platelet Count 586 x1000/uL (130-400); RBC 4.02 m/cumm (4.50-6.00); RBC Distribution Width 22.4 % (11.8-14.1); White Blood Cell Count 23.54 k/cumm (4.4-10.8)
[2019-12-21 09:02] LABS: ALT 10 U/L (16-63); AST 12 U/L (15-37); Alkaline Phosphatase 203 U/L (46-116); Anion Gap 6.5 mmol/L (3-11); BUN 8 mg/dL (7-18); Bilirubin, Total 0.6 mg/dL (0.2-1.0); CO2 28.5 mmol/L (21.0-32.0); CREATININE 0.81 mg/dL (0.70-1.30); Calcium 8.5 mg/dL (8.5-10.1); Chloride 93 mmol/L (98-107); Glucose 130 mg/dL (74-106); Potassium 3.3 mmol/L (3.5-5.1); Sodium 128 mmol/L (136-145); Total Protein 7.7 g/dL (6.4-8.2)
[2019-12-21 09:03] LABS: Absolute Eosinophil Count 0.24 k/cumm (0.0-0.7); Absolute Lymphocyte Count 1.65 k/cumm (1.2-3.4); Absolute Monocyte Count 0.94 k/cumm (0.11-0.7); Absolute Neutrophil Count 20.72 k/cumm (1.2-6.7); Atypical Lymphocytes % 1; Diff Comment Manual Differential
[2019-12-21 09:04] LABS: Anisocytosis 3+; Hypochromasia 2+; Microcytosis 2+; Poikilocytes 2+; Polychromasia Present
[2019-12-24 11:45] LABS: CA 19-9 55 U/mL (<35)
[2020-01-03] MEDS: Normal Saline Flush 10 ML SYR IVP (08:49)
[2020-01-03 09:00] LABS: Abs Immature Grans 0.04 k/cumm (0.0-0.09); Absolute Eosinophil Count 0.77 k/cumm (0.0-0.7); Absolute Monocyte Count 0.92 k/cumm (0.11-0.7); Basophils % 0.2; Eosinophils % 4.3; HCT 31.8 % (40.0-50.0); HGB 9.9 g/dL (13.5-17.5); Immature Grans % 0.2 %; Lymphocytes % 6.6; Mean Corp. HGB Concentration 31.1 g/dL (32.0-36.0); Mean Corpuscular Hemoglobin 24.4 pg (27.0-33.0); Mean Corpuscular Volume 78.3 fL (80-95); Mean Platelet Volume 8.9 fL (8.0-11.0); Monocytes % 5.1; Neutrophils % 83.6; Platelet Count 544 x1000/uL (130-400); RBC 4.06 m/cumm (4.50-6.00); RBC Distribution Width 20.2 % (11.8-14.1); White Blood Cell Count 17.97 k/cumm (4.4-10.8)
[2020-01-03 09:04] LABS: Absolute Basophil Count 0.04 k/cumm (0.0-0.2); Absolute Lymphocyte Count 1.19 k/cumm (1.2-3.4); Absolute Neutrophil Count 15.02 k/cumm (1.2-6.7)
[2020-01-03 09:47] LABS: Anisocytosis 2+; Diff Comment RBC Morph Reviewed; Polychromasia Present
[2020-01-03 09:48] LABS: Poikilocytes 1+
[2020-01-04 09:36] LABS: ALT 11 U/L (16-63); AST 14 U/L (15-37); Albumin 1.9 g/dL (3.4-5.0); Alkaline Phosphatase 226 U/L (46-116); Anion Gap 9.8 mmol/L (3-11); BUN 7 mg/dL (7-18); Bilirubin, Total 0.5 mg/dL (0.2-1.0); CO2 24.2 mmol/L (21.0-32.0); CREATININE 0.48 mg/dL (0.70-1.30); Calcium 7.4 mg/dL (8.5-10.1); Chloride 96 mmol/L (98-107); Glucose 92 mg/dL (74-106); Potassium 3.3 mmol/L (3.5-5.1); Sodium 130 mmol/L (136-145)
== END 2020-01-08 23:59 | disposition home or self-care (01) ==
LOC: INF 02:02
PROVIDERS: Visit Provider Internal Medicine Hematology & Oncology
DX: C25.9 Malignant neoplasm of pancreas, unspecified (principal); C78.7 Secondary malignant neoplasm of liver and intrahepatic bile duct; D64.9 Anemia, unspecified
CPT/HCPCS: 36415; 80053; 81232; 86900; 86901; 85025; 86301

== ENCOUNTER 2020-01-10 01:25 | Outpatient (RCR) | payer MEDICAID, SELFPAY ==
[2020-01-10 09:21] LABS: HCT 27.9 % (40.0-50.0); HGB 8.6 g/dL (13.5-17.5); Mean Corp. HGB Concentration 30.8 g/dL (32.0-36.0); Mean Corpuscular Hemoglobin 24.2 pg (27.0-33.0); Mean Corpuscular Volume 78.6 fL (80-95); Platelet Count 434 x1000/uL (130-400); RBC 3.55 m/cumm (4.50-6.00); RBC Distribution Width 19.4 % (11.8-14.1)
[2020-01-10 09:46] LABS: Absolute Eosinophil Count 1.79 k/cumm (0.0-0.7); Absolute Lymphocyte Count 2.24 k/cumm (1.2-3.4); Absolute Neutrophil Count 17.47 k/cumm (1.2-6.7); Atypical Lymphocytes % 1; Diff Comment Manual Differential
[2020-01-10 09:47] LABS: Anisocytosis 1+; Basophilic Stippling Present; Hypochromasia 2+; Microcytosis 1+; Poikilocytes 1+; Polychromasia Present
== END 2020-02-08 23:59 | disposition home or self-care (01) ==
LOC: INF 01:25
PROVIDERS: Visit Provider Internal Medicine Hematology & Oncology
DX: C25.9 Malignant neoplasm of pancreas, unspecified (principal); C78.7 Secondary malignant neoplasm of liver and intrahepatic bile duct; D64.9 Anemia, unspecified
CPT/HCPCS: 36415; 86900; 86901; 85025